=== PATIENT | male | born 1930 | race Hispanic/Latino ===

== ENCOUNTER 2016-12-26 18:43 | Inpatient (IN) | payer MEDICARE, BC ==
[2016-12-26 19:18] VITALS: BMI 25.0
--- NOTE | 2016-12-26 19:25 | ED PDOC ---
Arrival/HPI - General Historian: Family (Daughter) - General Chief Complaint: GI Problem Time Seen by Provider: 12/26/16 18:45 - History of Present Illness Narrative History of Present Illness (Text): 12/26/16 19:25 Patient is an 86 year old male who presents to the emergency department with hiccups and difficulty keeping food down for the past week. Daughter provides history. Daughter states that after the patient ate an Eskimo Pie today, patient agreed to come to the emergency department for further evaluation. Daughter explains that patient does not like to seek help from physicians or come to the hospital, so has not been evaluated by anyone in the past few years. She explains that 2-3 years ago, the patient may have had a "stroke" that resulted in residual speech deficits, where the patient tends to answer with "yes" or "no". She states the patient was not evaluated for this episode. Approximately one year ago, she reports the patient had another possible "stroke " that resulted in residual weakness in the right arms and both legs. Since this episode, patient had walked with a shuffle, leading with his left foot, and dragging his right foot. On 11/23/16 (approx one month ago), she reports the patient fell while in the yard and was on the ground for approximately 2 hours before EMT's arrived. She states she did not notice any evidence of trauma or injury after this fall. Daughter reports he refused to come to the ER for evaluation once EMT's arrived. Since the fall, she states he does not walk anymore and has to be lifted from a wheelchair into the bed. Five days ago, patient began to have hiccups, which he has had in the past (was evaluated in the ER as per daughter several years ago before any of the "strokes"). She states the patient usually gets this around the time of the year where he works on the compost pile in the yard. For the past week, daughter states the patient cannot keep food down, not quite vomiting, but spitting up some of the food he eats. She reports his food is limited to things like yogurt and applesauce. Today, patient had an Eskimo Pie after which he agreed to come for further evaluation after seeing the food that came up. Daughter reports she has not witnessed or heard of any episodes of the patient choking from these hiccups. She states he sometimes complains about his breathing. No urinary or bowel incontinence. 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) - Renal Hx Renal Disorder: No - Endocrine/Metabolic Hx Endocrine Disorders: No - Hematological/Oncological Hx Blood Disorders: Yes (GI BLEED) - Integumentary Hx Dermatological Disorder: No - Musculoskeletal/Rheumatological Hx Musculoskeletal Disorders: No Hx Falls: No - Gastrointestinal Hx Gastrointestinal Disorders: Yes (CONSTIPATION) - Genitourinary/Gynecological Hx Genitourinary Disorders: Yes (H/O OF HAVING A CATHETER FOR 10 YRS,URINARY RETENTION) Hx Incontinence: Yes - Psychiatric Hx Psychophysiologic Disorder: No Hx Depression: No Hx Emotional Abuse: No Hx Physical Abuse: No Hx Substance Use: No - Past Surgical History Past Surgical History: No Previous - Suicidal Assessment Feels Threatened In Home Enviroment: No Family/Social History - Physician Review Nursing Documentation Reviewed: Yes Family/Social History: No Known Family HX Smoking Status: Former Smoker Hx Alcohol Use: No Hx Substance Use: No Allergies/Home Meds Allergies/Adverse Reactions: Allergies No Known Allergies Allergy (Verified 11/01/13 08:07) Review of Systems - Review of Systems Systems not reviewed;Unavailable: Other (patient hard of hearing) Constitutional: Fatigue. absent: Fevers Eyes: absent: Vision Changes, Eye Pain ENT: Hearing Changes Respiratory: SOB, Cough, Sputum Cardiovascular: absent: Chest Pain, Palpitations Gastrointestinal: Appetite Changes, Food Intolerance, Other (dysphagia, hiccups) . absent: Abdominal Pain, Stool Changes, Nausea Genitourinary Male: Other (family reports "he urinates and moves his bowels without problems" but chronic issues noted as diaper is present) Musculoskeletal: absent: Back Pain Neurological: Focal Weakness, Gait Changes. absent: Headache, Speech Changes Hemo/Lymphatic: absent: Easy Bleeding Physical Exam Vital Signs Reviewed: Yes Temperature: Afebrile Pulse: Tachycardic Appearance: Positive for: Ill-Appearing Mental Status: Positive for: other (alert, follows commands, interacts appropriately) - Physical Exam Narrative Physical Exam (Text): Head: Atraumatic. Normocephalic. Eyes: PERRL. EOMI. Conjunctivae are not pale. ENT: Mucous membranes are moist and intact. Oropharynx is clear and symmetric. Neck: Supple. Full ROM. No tracheal deviation. Cardiovascular: Tachycardic, systoic murmur. Distal pulses equal and palpable. Pulmonary/Chest: No evidence of respiratory distress. Mild rhonchi at the bases. No accessory muscle usage. No stridor. No retractions. Abdominal: Distended. Firm to palpation. Lower abdominal distension and firmness. Inguinal hernias, not incarcerated. Normoactive bowel sounds. Rectal: no gross bleeding or melena Genitourinary: patient wearing diaper, no foul odor, no penile drainage, paraphimosis noted, no tenderness Back: No CVA tenderness. No deformity. No midline erythema or edema. Extremities: Bilateral edema, mild, nontender calves. No cyanosis. No clubbing. Able to range at hip, knee and ankle with no discomfort. Able to range at shoulder, elbow and wrist. Skin: Skin is pale but warm, no deep ulcerations or petechiae. Neurological: Hard of hearing, but follows commands interacts appropriately. He is able to move both of his lower extremities on his own, bend at the knees and wiggle his toes, unable to lift legs off the bed on his own. He is able to move both upper extremities, ? weakness in right when compared to left. Reflexes diminished. Psychiatric: He follows commands appropriately. Daughter states baseline mental status and reports that he is acting his baseline and appropriately. 12/26/16 22:41 (Alexsandra Oliva) Vital Signs Temp Pulse Resp BP Pulse Ox 12/26/16 22:22 106 H 20 130/50 L 95 12/26/16 21:05 98.2 F 111 H 20 144/86 94 L Medical Decision Making - EKG Interpretation Interpreted by ED Physician: Yes Type: 12 lead EKG Comparison: No previous EKG avail. ED Course and Treatment: 12/27/16 14:29 CT results placed into PA review folder; Preliminary interpretation of this examination was reported by [facility] at 8:22 p.m. on 12/26/2016. There is discordance of this report with the preliminary interpretation. Soft tissue density in the gastric cardia was not described in the in the preliminary report of this examination. Further evaluation with endoscopy is advised to exclude gastric neoplasm. results discussed with dr. danielson; she is aware fo gastric cardia density; pt will have endoscopy (Martha Ng) Patient presents with his daughter, who is also his power of commercial real estate attorney. Patient has not seen a physician for "years", daughter states that he does not like to come to hospitals or see physicians. The patient has had multiple symptoms throughout the past several years reported by himself and daughter, including the belief that "he thinks he has had strokes a few times" several years ago when he developed extremity weakness and did not seek evaluation, and also several months ago had episodes of speaking difficulty. She reports a fall while "working the garden" 1-2 months ago where there was NO reported trauma or injury but "since then he hasn't been walking on his own we use a wheelchair". Daughter states that he urinates on his own and without difficulty, stating that he communicates when he needs to go to the bathroom and "we wheel him to the bathroom". The patient DENIES ABDOMINAL OR BACK PAIN. He has had cough and hiccups, although hiccups have improved now in ED. There is productive cough, associated with history of dysphagia, suspect possible aspiration pneumonia. He is not in respiratory distress in ED. CXR suggestive of infiltrate, cannot exclude underlying infectious or malignant process. Cultures drawn and iv antibiotics given. The patient has not been walking for several months. At this time he has no reported back injury, or midline back tenderness. He is not incontinent. He has sensation in the saddle regions of his legs. Cannot exclude a prior CVA by his history, although no ACUTE weakness described and initial CT head unremarkable for acute process. Due to exam revealing abdominal distension, ct abdomen ordered. Limitations of this study reviewed with patient and family, although multiple abnormalities noted and reviewed with patient and family. He continues to deny abdominal pain or urinary difficulty, although concern for malignancy and bladder/prostate/kidney disease reviewed with patient. He does not wish for catheter as he denies discomfort or any difficulty urinating. This history and CT abdomen were reviewed with Dr. Babcock, urology, consult requested by admitting PMD Dr. Danielson. I have stressed to patient and family need for admission to further evaluate multiple medical issues including renal failure, elevated cr, dysphagia, abnormal ct abdomen findings. CT chest pending, endorsed to admitted team for admission, at this time NO chest pain or respiratory distress. Treatment plan reviewed with patient with daughter, HERNESTO, present, and they are agreeable to admission for further evaluation. Will consult GI, neurology. I am highly suspicious of malignancy, as well as GI pathology and upper gi disorder. Currently he is handling his secretions with no stridor or hypoxia or wheezing. Patient currently with NO PMD, patient admitted to on-call physician Dr. Danielson. EXAM: CT Head Without Intravenous Contrast IMPRESSION: No acute findings. Non-acute findings as above. Dictated and Authenticated by: Fredrick Han MD 12/26/2016 8:09 PM Eastern Time ([place] & [place]) EXAM: CT Abdomen and Pelvis Without Intravenous Contrast IMPRESSION: Bilateral hydronephrosis, severe on the right with a markedly distended urinary bladder compatible with bladder outlet obstruction. Perinephric stranding probably relates to the hydronephrosis although possibility of superimposed pyelonephritis and/or urinary tract infection is raised. Masslike density postero-inferiorly within urinary bladder which is in direct contiguity with the prostate gland. This could represent the prostate gland or prostate tumor protruding into the urinary bladder and/or bladder carcinoma which is not excluded. Enlarged prostate gland. Bilateral fat containing inguinal hernias. Fluid mixed with feces in sigmoid colon. Possibility of gastroenteritis is raised. Patchy/hazy right middle lobe density suspected to represent pneumonia with bilateral lower lobe atelectasis. Small fluid density focus containing gas adjacent to or involving the pancreatic head. Differential considerations include an enlarged segment of the pancreatic ductal system, and large distal common bile duct, or duodenal diverticulum. Vague increased density posteriorly in gallbladder could relate to bile content, sludge or less likely gallstones. 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 Dictated and Authenticated by: Fredrick Han MD 12/26/2016 8:22 PM Eastern Time ([place] & [place]) 12/26/16 22:58 (Alexsandra Oliva) - Lab Interpretations Microbiology Results: Microbiology Results 12/26/16 20:38 Blood Blood Culture - Preliminary NO GROWTH AFTER 48 HOURS 12/26/16 20:00 Blood Blood Culture - Preliminary NO GROWTH AFTER 48 HOURS Lab Results: 12/26/16 18:55 12/26/16 18:55 Lab Results 12/26/16 20:38: pO2 57 H, VBG pH 7.36, VBG pCO2 49.0, VBG HCO3 27.7, VBG Total CO2 29.2 H, VBG O2 Sat (Calc) 91.3 H, VBG Base Excess 1.5, VBG Potassium 4.0, Glucose 121 H, Lactate 2.0, FiO2 21.0, Sodium 143.0, Chloride 109.0 H, Venous Blood Potassium 4.0 12/26/16 18:55: Sodium 143, Potassium 3.9, Chloride 101, Carbon Dioxide 28, Anion Gap 18, BUN 42 H, Creatinine 2.3 H, Est GFR ( Amer) 33, Est GFR ( Non-Af Amer) 27, Random Glucose 141 H, Calcium 9.0, Magnesium 2.3 H, Total Bilirubin 0.8, AST 39, ALT 49, Alkaline Phosphatase 101, Lactate Dehydrogenase 625, Total Creatine Kinase 27 L, Troponin I 0.03 D, NT-Pro-B Natriuret Pep 907 H, Total Protein 7.4, Albumin 3.6, Globulin 3.8, Albumin/Globulin Ratio 0.9 L, Amylase 115, Lipase 256 12/26/16 18:55: PT 12.0 H, INR 1.11 H, APTT 32.4 H 12/26/16 18:55: WBC 12.7 H, RBC 4.11, Hgb 12.8 L, Hct 39.2 L, MCV 95.4, MCH 31.1 , MCHC 32.7, RDW 13.5, Plt Count 406, MPV 9.5, Gran % 83.6 H, Lymph % (Auto) 7.2 L, Curry % (Auto) 8.7 H, Eos % (Auto) 0.3 L, Baso % (Auto) 0.2, Gran # 10.61 H, Lymph # 0.9 L, Curry # 1.1 H, Eos # 0.0, Baso # 0.03 - RAD Interpretation Radiology Orders: 12/26/16 19:27 ABD & PELVIS W/O PO OR IV CONT [CT] Stat HEAD W/O CONTRAST [CT] Stat 12/26/16 19:28 CHEST ONE VIEW [RAD] Stat 12/26/16 20:26 CHEST W/O CONTRAST [CT] Stat - EKG Interpretation EKG Interpretation (Text): 12/26/16 22:40 EKG at 22:27 sinus tachycardia rate of 108, no acute st elevations, no prior for comparison (Alexsandra Oliva) - Medication Orders Current Medication Orders: Albuterol/Ipratropium (Duoneb 3 Mg/0.5 Mg (3 Ml) Ud) 3 ml IH Q2H PRN PRN Reason: Shortness of Breath Albuterol/Ipratropium (Duoneb 3 Mg/0.5 Mg (3 Ml) Ud) 3 ml IH [id number] [facility] Last Admin: 12/29/16 07:32 Dose: 3 ml Collagenase (Santyl) 0 gm TOP DAILY [facility] Last Admin: 12/28/16 14:00 Dose: 1 applic Doxycycline Hyclate (Doryx) 100 mg PO Q12 [facility] PRN Reason: Protocol Ceftriaxone Sodium (Rocephin 1 Gram Ivpb) 100 mls @ 100 mls/hr IVPB DAILY [facility] ARMANDO PRN Reason: Protocol Last Admin: 12/28/16 10:12 Dose: 100 mls/hr Dextrose/Sodium Chloride (Dextrose 5%/0.45% Ns 1000 Ml) 1,000 mls @ 60 mls/hr IV .[id number] [facility] Last Admin: 12/29/16 05:30 Dose: 60 mls/hr Lorazepam (Ativan) 0.5 mg IVP Q6H PRN; Protocol PRN Reason: Anxiety Last Admin: 12/29/16 05:28 Dose: 0.5 mg Metoprolol Tartrate (Lopressor) 25 mg PO BID [facility] Last Admin: 12/28/16 18:16 Dose: 25 mg Pantoprazole Sodium (Protonix Inj) 40 mg IVP DAILY [facility] Last Admin: 12/28/16 10:12 Dose: 40 mg Tamsulosin HCl (Flomax) 0.4 mg PO DAILY [facility] Last Admin: 12/28/16 12:47 Dose: 0.4 mg Discontinued Medications Albuterol/Ipratropium (Duoneb 3 Mg/0.5 Mg (3 Ml) Ud) 3 ml IH STAT STA Stop: 12/26/16 20:54 Last Admin: 12/26/16 21:35 Dose: 3 ml Chlorpromazine (Thorazine) 25 mg PO QID [facility] Last Admin: 12/27/16 12:45 Dose: Collagenase (Santyl) 1 gm TOP DAILY [facility] Last Admin: 12/27/16 16:12 Dose: 1 applic Sodium Chloride (Sodium Chloride 0.9%) 1,000 mls @ 100 mls/hr IV .Q10H [facility]AND[facility] Last Admin: 12/26/16 20:21 Dose: 100 mls/hr Ceftriaxone Sodium (Rocephin 1 Gram Ivpb) 100 mls @ 200 mls/hr IVPB STAT STA PRN Reason: Protocol Stop: 12/26/16 21:25 Last Admin: 12/26/16 21:35 Dose: 200 mls/hr Metronidazole (Flagyl) 100 mls @ 100 mls/hr IVPB STAT STA PRN Reason: Protocol Stop: 12/26/16 21:55 Last Admin: 12/26/16 22:37 Dose: 100 mls/hr Metronidazole (Flagyl) 50 mls @ 100 mls/hr IVPB Q8 JOSE ARMANDO PRN Reason: Protocol Stop: 01/01/17 06:01 Last Admin: 12/28/16 15:21 Dose: 100 mls/hr Comments: Pantoprazole Sodium (Protonix Inj) 40 mg IVP ONCE STA Stop: 12/26/16 19:41 Last Admin: 12/26/16 20:21 Dose: 40 mg Pregabalin (Lyrica) 50 mg PO BID [facility] ARMANDO Last Admin: 12/28/16 23:37 Dose: Not Given Non-Admin Reason: Patient Refused - Scribe Statement The provider has reviewed the documentation as recorded by the Scribe - Scribe Statement Brian Cerda Provider Scribe Attestation: All medical record entries made by the Scribe were at my direction and personally dictated by me. I have reviewed the chart and agree that the record accurately reflects my personal performance of the history, physical exam, medical decision making, and the department course for this patient. I have also personally directed, reviewed, and agree with the discharge instructions and disposition. (Alexsandra Oliva) Disposition/Present on Arrival - Present on Arrival Any Indicators Present on Arrival: No History of DVT/PE: No History of Uncontrolled Diabetes: No Urinary Catheter: No History of Decub. Ulcer: No History Surgical Site Infection Following: None - Disposition Have Diagnosis and Disposition been Completed?: Yes Disposition Time: 20:40 Patient Plan: Admission, Telemetry - Disposition Diagnosis: Dysphagia, Aspiration pneumonia, Tachycardia, Abdominal distension, Leg weakness, Prostate disorder, Hydronephrosis, Renal failure, Leukocytosis, Intractable hiccups, Cough, Abnormal abdominal CT scan, Weakness, Gait disturbance Disposition: HOSPITALIZED Patient Problems: Current Active Problems Problem Status Onset Abdominal distension Acute Abnormal abdominal CT scan Acute Aspiration pneumonia Acute Cough Acute Dysphagia Acute Gait disturbance Acute Hydronephrosis Acute Intractable hiccups Acute Leg weakness Acute Leukocytosis Acute Prostate disorder Acute Renal failure Acute Tachycardia Acute Weakness Acute Condition: SERIOUS
[2016-12-26] MEDS ORDERED: Sodium Chloride 0.9% 1,000 ML IV SCH (19:30)
[2016-12-26 20:00] LABS: ADD MANUAL DIFF? NO
[2016-12-26 20:07] LABS: BASO # 0.03 K/mm3 (0.0-2.0); BASO % 0.2 % (0.0-3.0); EOS % 0.3 % (1.5-5.0); GRAN # 10.61 (1.4-6.5); GRAN % 83.6 % (50.0-68.0); HEMATOCRIT 39.2 % (42.0-52.0); LYMPH # 0.9 (1.2-3.4); LYMPH % 7.2 % (22.0-35.0); MEAN CELL VOLUME 95.4 fL (80.0-105.0); MEAN CORPUSCULAR HEMOGLOBIN 31.1 pg (25.0-35.0); MEAN CORPUSCULAR HGB CONC 32.7 g/dl (31.0-37.0); MEAN PLATELET VOLUME 9.5 fl (7.0-11.0); MONO # 1.1 (0.1-0.6); MONO % 8.7 % (1.0-6.0); PLATELET COUNT 406 10^3/uL (120.0-450.0); RED CELL DISTRIBUTION WIDTH 13.5 % (11.5-14.5); WHITE BLOOD COUNT 12.7 10^3/ul (4.5-11.0)
[2016-12-26 20:17] LABS: INR 1.11 (0.93-1.08); PARTIAL THROMBOPLASTIN TIME 32.4 Seconds (23.7-30.8)
[2016-12-26 20:18] LABS: ALB/GLOB RATIO 0.9 (1.1-1.8); BILIRUBIN,TOTAL 0.8 mg/dL (0.2-1.3); MAGNESIUM 2.3 mg/dL (1.7-2.2); POTASSIUM 3.9 mmol/L (3.6-5.0); TOTAL PROTEIN 7.4 g/dL (5.8-8.3)
[2016-12-26 20:30] LABS: TROPONIN I 0.03 ng/mL
[2016-12-26 20:51] LABS: VENOUS BLOOD GAS BASE EXCESS 1.5 mmol/L (0.0-2.0); VENOUS BLOOD PH 7.36 (7.32-7.43)
[2016-12-26] MEDS ORDERED: Albuterol-Ipratrop 3 mg / 0.5 (3 ml) UD IH STA (20:53)
[2016-12-26] MEDS ORDERED: cefTRIAXone 1 gm 100 ML IVPB STA (20:56)
[2016-12-26] MEDS ORDERED: metroNIDAZOLE IV 500 mg/100 ml 100 ML IVPB STA (20:56)
[2016-12-26] MEDS ORDERED: Albuterol-Ipratrop 3 mg / 0.5 (3 ml) UD IH PRN ×2 (21:54→22:13)
[2016-12-26] MEDS: Dextrose 5%/0.45% NS 1,000 ML IV SCH (22:33)
--- NOTE | 2016-12-26 22:52 | HP ---
HISTORY OF PRESENT ILLNESS: The patient is an 86-year-old brought in by daughter. According to joão vázquez, he does not like to go to doctors. Occasionally, he is being followed by a nurse practitioner. Has not been feeling well for the last couple of days, unable to eat or drink, has been vomiting an d having difficulty swallowing. According to daughter, he had a stroke in the past, but he never raul ght any attention. Has been increasingly weak and recently has been wheelchair bound. Also has been having scanty cough. Because of his repeated vomiting and having difficulty swallowing, family brou ght him to Emergency Room for further evaluation. Denies any recent fever or chills. Does complain of abdominal pain here and there. PAST MEDICAL HISTORY: Significant for: 1. Hypertension. 2. History of UTI in the past. 3. Hyperlipidemia. 4. History of UTI. 5. History of CVA in the past also. 6. Hearing impairment. 7. Previous admission in 2013 for his persistent hiccups. SOCIAL HISTORY: Denies smoking or drinking. Used to be smoker in the remote past. OCCUPATIONAL HISTORY: He is retired, elderly male. ALLERGIES: He is not allergic to any medication. MEDICATIONS AT HOME: ____ does not take any medication. REVIEW OF SYSTEMS: Significant for generalized weakness, difficulty swallowing and having nausea. PHYSICAL EXAMINATION: GENERAL: He is awake and alert, able to answer simple questions. VITAL SIGNS: He is afebrile, pulse 111, respirations 20, blood pressure 144/86. LUNGS: Bilateral fair airflow, no rhonchi or crackle. HEART: S1, S2 audible. ABDOMEN: Slightly distended, but no rebound or guarding. NEUROLOGIC: He is awake and alert and generally weak. LABORATORY EXAMINATION: WBC is 12.7, hemoglobin 12.8, hematocrit 39.2, platelet 406. PT 12.0, INR 1 .11, PTT 32.4. Chemistry: Sodium 143, potassium 3.9, chloride 101, CO2 of 28, BUN 42, creatinine 2. 3, blood sugar of 141, magnesium 2.3. LFTs are within normal limits. CPK 27. Troponin 0.03. BNP 9 07. Lipase 256. X-ray chest is unremarkable. ASSESSMENT: 1. Dysphagia and repeated vomiting, rule out foreign body versus esophagitis versus gastritis. 2. Chronic renal insufficiency. 3. History of cerebrovascular accident in the past. 4. Hypertension. 5. Hyperlipidemia. 6. Deconditioning and difficulty walking. PLAN: We will keep patient n.p.o. for now, give him PPI. Empirically start him on antibiotic. Bloo d culture, urine cultures are sent. We will follow up official report of CT of the abdomen and pelvi s. Request for Dr. Matos and Dr. Maldonado to evaluate patient since he has questionable prostatic mas s. Follow up his electrolytes in a.m. and I will reevaluate patient in a.m. Mike Danielson MD cc: [phone] TT: 12/26/2016 22:51:43 sn
[2016-12-27 00:36] LABS: PH,URINE 6.5 (4.7-8.0); URINE BILIRUBIN NEGATIVE (NEGATIVE); URINE BLOOD MODERATE (NEGATIVE); URINE GLUCOSE (UA) NEGATIVE (NEGATIVE); URINE KETONE NEGATIVE (NEGATIVE); URINE LEUKOCYTE ESTERASE TRACE Leu/uL (NEGATIVE); URINE PROTEIN 30 mg/dL (<30 mg/dL)
[2016-12-27 00:36] LABS: VENOUS BLOOD GAS BASE EXCESS 3.1 mmol/L (0.0-2.0); VENOUS BLOOD PH 7.46 (7.32-7.43)
[2016-12-27 00:41] LABS: URINE APPEARANCE SL CLOUDY (CLEAR); URINE COLOR YELLOW (YELLOW)
[2016-12-27 01:03] LABS: URINE EPITHELIAL CELLS 0 - 2 /hpf (0-5)
[2016-12-27 01:04] LABS: URINE BACTERIA RARE (NEG)
[2016-12-27] MEDS: Albuterol-Ipratrop 3 mg / 0.5 (3 ml) UD IH SCH ×4 (01:38→20:03)
--- NOTE | 2016-12-27 01:52 | CP.PCM.PN ---
Subjective - Date & Time of Evaluation Date of Evaluation: 12/27/16 Time of Evaluation: 01:51 - Subjective Subjective: Patient was seen at bedside because he had been pulling Flores catheter.Nurse had requested to order wrist restraints. Has no acute symptoms now. This 86 years old male was admitted for hiccugh and difficulty in keeping food down,dysphagia, tachycardia, aspiration PNA. Has PMH of HTN,right, ear deafness, gi bleeding, constipation ,urinary incontinence, urinary retention, indwelling catheter for 10 years, Objective - Vital Signs/Intake and Output Vital Signs (last 24 hours): Temp Pulse Resp BP Pulse Ox 99.6 F 94 H 20 123/64 95 12/27/16 01:08 12/27/16 01:39 12/26/16 23:55 12/27/16 01:08 12/26/16 22:22 - Medications Medications: Current Medications Albuterol/Ipratropium (Duoneb 3 Mg/0.5 Mg (3 Ml) Ud) 3 ml IH Q2H PRN PRN Reason: Shortness of Breath Albuterol/Ipratropium (Duoneb 3 Mg/0.5 Mg (3 Ml) Ud) 3 ml IH [id number] [facility] Last Admin: 12/27/16 01:38 Dose: 3 ml Chlorpromazine (Thorazine) 25 mg PO QID [facility] Last Admin: 12/26/16 23:27 Dose: Not Given Ceftriaxone Sodium (Rocephin 1 Gram Ivpb) 100 mls @ 100 mls/hr IVPB DAILY [facility] PRN Reason: Protocol Dextrose/Sodium Chloride (Dextrose 5%/0.45% Ns 1000 Ml) 1,000 mls @ 60 mls/hr IV .[id number] [facility] Last Admin: 12/26/16 22:33 Dose: 60 mls/hr Metronidazole (Flagyl) 50 mls @ 100 mls/hr IVPB Q8 [facility] ARMANDO PRN Reason: Protocol Stop: 01/01/17 06:01 Pantoprazole Sodium (Protonix Inj) 40 mg IVP DAILY [facility] - Labs Labs: PT 12.0 Seconds (9.9-11.8) H 12/26/16 18:55 INR 1.11 (0.93-1.08) H 12/26/16 18:55 APTT 32.4 Seconds (23.7-30.8) H 12/26/16 18:55 - Constitutional Appears: Well, No Acute Distress - Head Exam Head Exam: ATRAUMATIC, NORMAL INSPECTION, NORMOCEPHALIC - Eye Exam Eye Exam: Normal appearance - ENT Exam ENT Exam: Normal External Ear Exam - Neck Exam Neck Exam: Normal Inspection - Respiratory Exam Respiratory Exam: NORMAL BREATHING PATTERN - Cardiovascular Exam Cardiovascular Exam: absent: JVD - GI/Abdominal Exam GI & Abdominal Exam: absent: Distended - Rectal Exam Rectal Exam: Deferred - Extremities Exam Extremities Exam: Normal Inspection - Back Exam Back Exam: NORMAL INSPECTION - Neurological Exam Neurological Exam: Altered - Psychiatric Exam Psychiatric exam: Agitated - Skin Skin Exam: Normal Color Assessment and Plan - Assessment and Plan (Free Text) Assessment: A/P:Agitation. HTN. Urinary retention. Continue present management. Restraint order entered.
[2016-12-27] MEDS ORDERED: Albuterol-Ipratrop 3 mg / 0.5 (3 ml) UD IH SCH (02:00)
[2016-12-27] MEDS: metroNIDAZOLE IV 250mg/50 ml 50 ML IVPB SCH ×3 (05:11→22:10)
--- NOTE | 2016-12-27 07:51 | CT ---
PROCEDURE: CT HEAD WITHOUT CONTRAST. HISTORY: bilateral leg weakness, right greater than left COMPARISON: None available. TECHNIQUE: Axial computed tomography images were obtained through the head/brain without intravenous contrast. Radiation dose: Total exam DLP = 725.84 mGy-cm. This CT exam was performed using one or more of the following dose reduction techniques: Automated exposure control, adjustment of the mA and/or kV according to patient size, and/or use of iterative reconstruction technique. FINDINGS: HEMORRHAGE: No intracranial hemorrhage. BRAIN: No mass effect or edema. Moderate diffuse age-appropriate atrophy. Chronic periventricular and deep white matter microvascular ischemic change. Old left frontal and left high parietal encephalomalacia, possibly old infarcts. No evidence of acute infarct. VENTRICLES: Unremarkable. No hydrocephalus. CALVARIUM: Unremarkable. PARANASAL SINUSES: Unremarkable as visualized. No significant inflammatory changes. MASTOID AIR CELLS: Minimal left mastoid effusion, nonspecific. OTHER FINDINGS: None. IMPRESSION: No intracranial mass, hemorrhage or evidence of acute infarct. Age related atrophy and chronic microvascular ischemic change. Old left frontal and high parietal encephalomalacia, possibly old infarct. Minimal left mastoid effusion. Preliminary interpretation of this examination was reported by [facility] at 8:09 p.m. on 12/26/2016. There is concurrence of this report with the preliminary interpretation.
--- NOTE | 2016-12-27 08:16 | CT ---
PROCEDURE: CT Abdomen and Pelvis without intravenous contrast HISTORY: history of intractable hiccups, distension COMPARISON: None. TECHNIQUE: Without contrast.. Contrast Dose: 0 Radiation dose: Total exam DLP = 708.69 mGy-cm. This CT exam was performed using one or more of the following dose reduction techniques: Automated exposure control, adjustment of the mA and/or kV according to patient size, and/or use of iterative reconstruction technique. FINDINGS: LOWER THORAX: There are patchy opacities in the right middle lobe, possibly infectious or inflammatory in origin. Minimal right lower lobe dependent subsegmental atelectasis. LIVER: Normal size and contour. Nonspecific 1.9 cm rounded low-attenuation mass in the posterior right hepatic lobe. Punctate calcification noted in the left hepatic lobe, likely granulomatous. No biliary ductal dilatation. GALLBLADDER AND BILE DUCTS: Possible noncalcified gallstones. See image 61, series 2. Recommend correlation with ultrasound examination. PANCREAS: Probable duodenal diverticulum in the pancreatic head. No pancreatic mass. No pancreatic ductal dilatation. Few punctate calcifications in the pancreatic head may reflect chronic pancreatitis. SPLEEN: Unremarkable. ADRENALS: Unremarkable. No mass. KIDNEYS AND URETERS: Right upper pole renal cortical cyst, 8.4 cm. Bilateral hydroureteronephrosis, right greater than left. No obstructing calculus. VASCULATURE: There is displacement of calcified intima in the infrarenal abdominal aorta consistent with aortic dissection indeterminate chronicity. No prior examination is available for comparison. No aneurysmal dilatation noted. BOWEL: No bowel obstruction. Soft tissue density in the gastric cardia, lobulated the common extending to gastroesophageal junction. Small hiatal hernia noted. This is concerning for gastric neoplasm and evaluation with upper endoscopy is advised. This soft tissue density measures at least 4.4 cm in diameter. APPENDIX: Unremarkable. Normal appendix. PERITONEUM: No ascites. Bilateral inguinal hernias containing only mesenteric fat. LYMPH NODES: Unremarkable. No enlarged lymph nodes. BLADDER: Bladder is grossly distended. There is a lobular contour of the bladder. There is no discrete mass. There is abnormal soft tissue density contiguous with the median lobe of the prostate which may represent an enlarged median lobe. However, further evaluation is suggested to exclude bladder neoplasm. REPRODUCTIVE: Mild prostate enlargement. Enlarged median lobe of the prostate. BONES: No acute fracture. OTHER FINDINGS: None. IMPRESSION: Patchy opacity in right middle lobe possibly reflecting a pneumonia. Followup is advised. Lobulated soft tissue density in gastric cardia extending into a small hiatal hernia to the level of the gastroesophageal junction. Suspicious for neoplasm. Recommend upper endoscopy for further evaluation. Nonspecific 1.9 cm low attenuation rounded hepatic mass right hepatic lobe. Probable old calcified hepatic granuloma. Evidence of abdominal aortic dissection, indeterminate age. No prior examination available for comparison. No aneurysmal dilatation. Bilateral hydroureteronephrosis, right greater than left. Markedly distended urinary bladder with lobulated contour. This may reflect bladder diverticula E. enlarged prostate. Abnormal soft tissue density arising from median lobe of prostate. Further evaluation is advised to exclude bladder neoplasm. Enlarged prostate. 8.4 cm right upper pole renal cortical cyst. Possible cholelithiasis. Please correlate with ultrasound examination. Preliminary interpretation of this examination was reported by [facility] at 8:22 p.m. on 12/26/2016. There is discordance of this report with the preliminary interpretation. Soft tissue density in the gastric cardia was not described in the in the preliminary report of this examination. Further evaluation with endoscopy is advised to exclude gastric neoplasm.
--- NOTE | 2016-12-27 08:32 | RAD ---
PROCEDURE: CHEST RADIOGRAPH, 1 VIEW HISTORY: hx of cough, ? aspiration, vomiting, hiccups COMPARISON: 11/01/2013 FINDINGS: LUNGS: Clear. PLEURA: No pneumothorax or pleural fluid seen. CARDIOVASCULAR: Normal. OSSEOUS STRUCTURES: No significant abnormalities. VISUALIZED UPPER ABDOMEN: Normal. OTHER FINDINGS: None. IMPRESSION: No active disease.
[2016-12-27 08:46] LABS: ADD MANUAL DIFF? NO
[2016-12-27 08:51] LABS: BASO # 0.02 K/mm3 (0.0-2.0); BASO % 0.1 % (0.0-3.0); EOS % 0.1 % (1.5-5.0); GRAN # 12.19 (1.4-6.5); GRAN % 83.1 % (50.0-68.0); HEMATOCRIT 34.5 % (42.0-52.0); LYMPH # 1.3 (1.2-3.4); LYMPH % 8.9 % (22.0-35.0); MEAN CORPUSCULAR HEMOGLOBIN 30.8 pg (25.0-35.0); MEAN CORPUSCULAR HGB CONC 32.8 g/dl (31.0-37.0); MEAN PLATELET VOLUME 9.3 fl (7.0-11.0); MONO # 1.1 (0.1-0.6); MONO % 7.8 % (1.0-6.0); PLATELET COUNT 299 10^3/uL (120.0-450.0); RED CELL DISTRIBUTION WIDTH 13.4 % (11.5-14.5); WHITE BLOOD COUNT 14.7 10^3/ul (4.5-11.0)
--- NOTE | 2016-12-27 08:55 | CT ---
PROCEDURE: CT Chest without contrast HISTORY: dysphagia, ? lung mass COMPARISON: None. TECHNIQUE: Contiguous axial images were obtained through the chest without intravenous contrast enhancement. Sagittal and coronal reconstructions were performed. Radiation dose (DLP): 540.08 mGy-cm. This CT exam was performed using one or more of the following dose reduction techniques: Automated exposure control, adjustment of the mA and/or kV according to patient size, and/or use of iterative reconstruction technique. FINDINGS: LUNGS: Patchy opacities in right middle lobe and posterior segment right upper lobe. Possible pneumonia. Subsegmental atelectasis right lower lobe and minimal atelectasis left lower lobe. 1.8 cm mass in superior segment right lower lobe, abutting right mediastinal pleura posterior to right hilum. Irregular margins. Suspicious for pulmonary neoplasm. This is likely amenable to bronchoscopic evaluation. MEDIASTINUM: Unremarkable thoracic aorta. No aneurysm. Normal size heart. Coronary arterial calcification. Main pulmonary artery unremarkable. No vascular congestion. No lymphadenopathy. Mild diffuse mural thickening of thoracic esophagus throughout its length, possible diffuse esophagitis. Small hiatal hernia. Abnormal soft tissue density seen within the hiatal hernia as well as within gastric cardia, better demonstrated on abdominal/ pelvic CT examination of the same date. Suspicious for gastric neoplasm. Evaluation with endoscopy is advised. PLEURA: No pleural fluid. No pneumothorax. BONES: No fracture. No destructive lesion. UPPER ABDOMEN: Bilateral hydroureteronephrosis. Large right upper pole renal cyst. Please see report of abdominal/pelvic CT examination. Top of markedly distended urinary bladder is also included in the lower sections of this examination. Nonspecific 1.8 cm low-density mass right hepatic lobe posterior segment. Consider correlation with ultrasound examination. OTHER FINDINGS: None. IMPRESSION: Multifocal patchy opacities, right middle and upper lobes. Possible pneumonia. 1.8 cm mass in superior segment right lower lobe, posterior to right hilum. Suspicious for pulmonary neoplasm. Further evaluation is advised. Diffuse mild thickening of thoracic esophagus, possible esophagitis. Hiatal hernia. Soft tissue density within herniated stomach as well as within the gastric cardia, better demonstrated on abdominal/pelvic CT examination of the same date. Suspicious for gastric neoplasm. Evaluation with endoscopy advised. Bilateral hydroureteronephrosis. Large right upper pole renal cyst. See report of abdominal/ pelvic CT examination. Preliminary interpretation of this examination was reported by [facility] at 11:15 p.m. on 12/26/2016. There is concurrence of this report with the preliminary interpretation.
[2016-12-27 09:11] LABS: ALB/GLOB RATIO 0.9 (1.1-1.8); BILIRUBIN,TOTAL 1.1 mg/dL (0.2-1.3); CALCIUM 8.2 mg/dL (8.4-10.5); PHOSPHOROUS 3.8 mg/dL (2.5-4.5); POTASSIUM 3.6 mmol/L (3.6-5.0); TOTAL PROTEIN 6.4 g/dL (5.8-8.3)
[2016-12-27 09:51] LABS: FREE T4 1.49 ng/dL (0.78-2.19)
--- NOTE | 2016-12-27 10:16 | CARD ---
APPROVED REPORT EKG Measurement Heart [id number] <Conclusion> Sinus tachycardia Septal infarct, age undetermined Abnormal ECG
--- NOTE | 2016-12-27 10:19 | CARD ---
APPROVED REPORT EKG Measurement Heart [id number] <Conclusion> Atrial fibrillation Abnormal ECG
[2016-12-27] MEDS: cefTRIAXone 1 gm 100 ML IVPB SCH (10:29)
--- NOTE | 2016-12-27 12:45 | PN ---
DATE: 12/27/2016 The patient is seen and examined. He looks much better than last night. His belly was distended and reportedly, as per nurse who is in charge today, that a full liter of urine was drained last night. He seems to be not in any acute distress. He is awake and alert. He is hard of hearing. PHYSICAL EXAMINATION: VITAL SIGNS: His temperature is 99.5, pulse 98, respirations 20, blood pressure 142/83. LUNGS: Bilateral fair airflow, no rhonchi or crackle. HEART: S1, S2 audible. ABDOMEN: Soft, nontender, no rebound, no guarding. NEUROLOGIC: He is awake and alert, hard of hearing, moves all extremities, has generalized weakness. LABORATORY EXAMINATION: WBCs 14.7, hemoglobin 11.3, hematocrit 34.5, platelets of 299. PT 12.0, INR 1.11. Chemistry: Sodium 144, potassium 3.6, chloride 106, CO2 27, BUN 37, creatinine 2.0, blood wallace gar of 130. LFTs are within normal limits. His blood culture and urine cultures are unremarkable. The patient had CT scan of the abdomen and pelvis done that shows patchy opacity in the right middle lobe, possibly reflecting pneumonia, and he has lobulated soft tissue density in the gastric cardia e xtending into the small hiatal hernia, hepatic granuloma, bilateral hydroureteronephrosis, right grea ter than the left and markedly distended urinary bladder that was decompressed and large prostate wit h a size of 8.4 cm, right upper pole renal cortical cyst and cholelithiasis. CT of the chest, right middle and upper lobe possible pneumonia. ASSESSMENT: 1. Status post acute urinary retention, status post decompression. 2. Bilateral upper lobe pneumonia versus malignancy. 3. Acute on chronic renal insufficiency. 4. Impaired hearing. 5. History of hypertension. PLAN: Currently, patient is n.p.o. Schedule is for upper endoscopy. He is on IV fluid. He is gett ing nebulizer treatment. He is on metronidazole and Rocephin. Will add Zithromax. Continue on Prot luana. I will try to get in touch with patient's daughter, Sultana, who will contact me today evening. Tried to get some more information from, , his , but she states she does not know much about his other ailments. I will discuss with patient's daughter about lung nodule versus pneumonia and a lso prostatic hyperplasia versus cancer of prostate. Awaiting other consultants' input. Mike Danielson MD cc: [id number] TT: 12/27/2016 12:44:28 Confirmation # [id number] Dictation # [id number] en
[2016-12-27 13:01] LABS: TROPONIN I 0.07 ng/mL
[2016-12-27 13:21] LABS: PROSTATE SPECIFIC ANTIGEN 6.8 ng/mL (0.00-2.5)
[2016-12-27] MEDS: Dextrose 5%/0.45% NS 1,000 ML IV SCH (15:08)
[2016-12-27] MEDS ORDERED: Collagenase 250 Units/gm Ointment(30 gm) TOP SCH (16:15)
--- NOTE | 2016-12-27 19:25 | CON ---
DATE: 12/27/2016 HISTORY OF PRESENT ILLNESS: This is an 86-year-old male who came to the Emergency Room with hiccup a nd difficulty in keeping food down for the past week. The patient was brought in by daughter and the patient was unable to eat or drink and was vomiting. This morning, patient is able to manage. Call ed to evaluate the patient. PAST MEDICAL HISTORY: Hypertension, UTI, hyperlipidemia and a history of stroke in the past. SOCIAL HISTORY: Does not smoke, does not drink. ALLERGIES: No known drug allergies. REVIEW OF SYSTEMS: A 10-point review of systems was negative. PHYSICAL EXAMINATION: HEENT: Normocephalic, atraumatic. NECK: Supple. NEUROLOGIC: CAT scan of the head showed old frontal and parietal infarct. Cranial nerves II through XII were tested. Pupils reactive. EOMs intact. Spontaneous movement of the extremities noted. REFLEXES: Deep tendon reflexes 1+. Both plantars are downgoing. SENSORY: Appears intact. CEREBELLAR GAIT: Deferred. IMPRESSION: The patient had an old stroke previously. CT scan showed old frontal and parietal infar ct. Hypertension, hyperlipidemia, difficulty ambulating. PLAN: Continue present management. Will follow up. Paul Thorne MD cc: [id number] TT: 12/27/2016 19:25:09 Confirmation # [id number] Dictation # [id number] kiran
--- NOTE | 2016-12-27 19:43 | CON ---
DATE: 12/27/2016 CHIEF COMPLAINT: The patient is unable to eat or drink with abdominal distention and vomiting. HISTORY OF PRESENT ILLNESS: This is an 86-year-old male who is brought to the Emergency Room by his family. According to the family, the patient has had multiple medical issues and has been refusing t o go to the doctor. He apparently had a few strokes while at home and was never evaluated for this. Occasionally he has been seen by a nurse practitioner. Last couple of days he has been unable to ea t or drink. He has been vomiting and having difficulty swallowing. He has been having increasing we akness and difficulty ambulating. He has been wheelchair bound and he has also been complaining of a cough. His condition continued to worsen and the family finally brought him to the Emergency Room. He denies any recent fever or chills, but he does complain of some abdominal discomfort. The patien antoinette is seen on the floor in his room. He is awake. He has some type of aphasia and not completely com municative, but is able to answer yes or no questions. Most of the history was obtained from the [facility] rt and discussion with the Emergency Room physician. PAST MEDICAL HISTORY: Is significant for hypertension, history of urinary infections, hyperlipidemia , multiple CVAs, hearing impairment. HOME MEDICATIONS: He does not take any medication. ALLERGIES: No known drug allergies. FAMILY HISTORY: The patient lives at home. SOCIAL HISTORY: Positive for smoking in the past. No current smoking or ETOH use. REVIEW OF SYSTEMS: Positives as per the HPI. Other systems were asked and the patient answers negat stephania for any other acute problems. PHYSICAL EXAMINATION: GENERAL: The patient is awake and alert. He is noncommunicative, but able to answer yes or no quest ions. He is in no acute distress at this time. VITAL SIGNS: He is afebrile with a temp of 97.3, pulse of 78, BP 126/61, respirations 20. NECK: Supple. There is no adenopathy. CHEST: Reveals a normal inspiratory effort. CARDIAC: Positive S1 and S2. There is no peripheral edema noted. ABDOMEN: Soft. There is no current tenderness. There is no rebound or guarding. There is no CVA t enderness. GENITOURINARY: There is a Flores catheter in place. The phallus shows a paraphimotic foreskin, which I reduced. Scrotum is normal. Testes are bilaterally descended, nontender, no masses. Epididymide s are normal. EXTREMITIES: There is no cyanosis or edema noted. LABORATORY DATA: The patient had an elevated WBC count, which was this morning at 14.7; hemoglobin o f 11.3 with a hematocrit of 34 and platelet count 299. The patient had a creatinine of 2.3, which sierra s come down to 2.0. BNP of 907 last night. PSA was ordered and came back at 6.8. Urinalysis showed 2-5 RBC, 2-5 WBC, negative for nitrates, positive for protein. The patient had a CT scan of the abd omen and pelvis done yesterday, which showed there is bilateral hydronephrosis, right greater than le ft. There were no obstructing stones. There was mild prostatic enlargement with an enlarged median lobe. The bladder was grossly distended. There was a lobular contour of the bladder. There was no discrete mass. There is a question of a bladder diverticulum. There was a soft tissue density in th e gastric cardia, which was not described in the preliminary report and endoscopy was recommended. IMPRESSION AND PLAN: This is an 86-year-old male with multiple medical issues who has not been recei vin medical care for a while at home. Urologically the patient appears to have bilateral hydronephr osis with obstructive uropathy. A Flores catheter was placed and 4 liters of urine were drained slowl y over time. He did have a paraphimosis, which I reduced and should be okay. The plan for now would be to maintain the Flores catheter while the patient receives treatment for his other medical issues. Given the large volume of urine, which was drained, it is unlikely that the patient will void adequ ately at this time. Most likely the urologic plan would be to discharge the patient home with an ind welling Flores catheter, which should be changed monthly. We can consider a voiding trial if the jany ent's medical condition improves and after further workup of the questionable stomach mass and conges tive heart failure, we could consider starting him on tamsulosin and removing the Flores catheter for a voiding trial; however, given his lack of consistent medical care, it is likely that if the patient is not emptying well, this would not go noticed and he would likely wind up having progressive renal failure from outlet obstruction. I will discuss his further care with his medical attending and irvin long further recommendations. For now, we will continue him with the indwelling Flores catheter. We ronald l need to discuss his care with his family and I will continue to follow him with Dr. Danielson. Wong Babcock MD cc: [id number] TT: 12/27/2016 19:43:02 Confirmation # [id number] Dictation # [id number] dn
--- NOTE | 2016-12-27 20:17 | CON ---
DATE: 12/27/2016 The patient was seen and examined at the bedside earlier today. REQUEST FOR CONSULT: Dysphagia. HISTORY OF PRESENT ILLNESS: This is an 86-year-old male with a past medical history of hypertension, hyperlipidemia, history of cerebrovascular accident and hard of hearing, who comes to the Emergency Room with complaints of inability to eat or drink. He has been vomiting and having difficulty swallo wing. According to the daughter, who brought him in, he does not like to go to the doctors. He did have a history of a stroke in the past, but never got medical evaluation. Currently, the patient has been wheelchair bound. Complaining of a cough. The patient has been complaining of difficulty swal lowing. No reports of any hemetemesis or any bleeding per rectum. No fever or chills, shortness of breath or chest pain, though the patient does complain of occasional abdominal discomfort. He did sierra ve a CT scan of abdomen and pelvis on admission without any contrast, which showed right middle lobe opacity, possibly reflecting pneumonia as well as a small hiatal hernia and a soft tissue density in the gastric cardia suspicious for neoplasm. Also, noted to have old calcified hepatic granuloma. Th e patient was also found to have abdominal distention and Flores catheter was inserted and initially 2 000 mL was retained and after clamping, the patient had another 2 liter output. No reports of any bl eeding. The patient is not complaining of any abdominal pain now. PAST MEDICAL HISTORY: Is as stated above, hypertension, CVA for which the patient did not seek medic al evaluation, history of UTI, hyperlipidemia, hearing impairment, constipation, history of urinary r etention in the past. PAST SURGICAL HISTORY: None noted. FAMILY HISTORY: Noncontributory at this time. SOCIAL HISTORY: Former smoker. Denies ETOH or substance abuse. ALLERGIES: No known drug allergies. MEDICATIONS: Reviewed as per MAR. REVIEW OF SYSTEMS: Systems were reviewed with positive findings, see HPI. LABORATORY DATA: WBC 14.7, H and H is 11.3 and 34.5, platelets of 299. PT 12.0, INR is 1.11, PTT 32 .4. Sodium 144, K is 3.6, BUN 37, creatinine is 15. LFTs are within normal limits. Magnesium is 2. 0. The patient had a CT scan of the chest that showed right middle and upper lobe multifocal patchy opacities, possible pneumonia. There is a mass in the superior segment of the right lower lobe posterior to the right hilum, suspicious for pulmonary neoplasm. There is diffuse thickening in the thoracic esophagus, possible esophagitis, hiatal hernia, soft tissue density within herniated stomac h as well as within the gastric cardia suspicious for gastric neoplasm. Also is noted to have a larg e right upper pole renal cyst, bilateral hydroureteronephrosis. He also had a chest x-ray, which did not show any active disease. The head CT was also done for complaint of weakness and was negative f or intracranial mass, hemorrhage or an acute infarct. It shows an old left frontal and high parietal encephalomalacia, possibly old infarct. CT scan of abdomen and pelvis report was also reviewed, whi ch again showed the patchy opacity in the right middle lobe, possibly reflecting pneumonia. There is also a lobulated soft tissue density in the gastric cardia extending into a small hiatal hernia at t he level of the GE junction, suspicious for neoplasm and a nonspecific 1.9 cm low attenuation rounded hepatic mass in the right hepatic lobe, probable old calcified hepatic granuloma. There is evidence of abdominal aortic dissection of indeterminate age. No prior exam available for comparison. There is no aneurysmal dilatation. He also has bilateral hydroureteronephrosis, right greater than left, and a markedly distended urinary bladder with lobulated contour and enlarged prostate. PHYSICAL EXAMINATION: VITAL SIGNS: Temperature 99.5, blood pressure 142/83, pulse is 98, respirations 20, O2 saturation 10 0. HEENT: Sclerae anicteric. NECK: Supple. CARDIAC: S1, S2. LUNGS: With decreased breath sounds but good air entry. No rales or wheeze. ABDOMEN: With bowel sounds, soft, does not appear distended, nontender, no rebound or guarding. NEUROLOGIC: The patient is awake and alert, hard of hearing. EXTREMITIES: Did not note any bilateral edema. ASSESSMENT: Status post-acute urinary retention. He has a Flores catheter now. He drained about 4 l iters total yesterday. Dysphagia and abnormal CT scan. There is some thickening showing in the renée palmira cardia and in the esophagus. History of cerebrovascular accident. Impaired hearing. History of hypertension. Patient with possible pneumonia versus malignancy. CT scan of the abdomen and chest reporting multifocal patchy opacities in the right middle and upper lobes. PLAN: Keep patient n.p.o. and continue IV fluids for hydration. He is also on ceftriaxone and Flagy l. Will continue GI prophylaxis of Protonix IV daily and on breathing treatments p.r.n. Follow up u rine culture. A long discussion with the patient's daughter, done by Dr. Matos, discussed in deta ils regarding risks, benefits, and alternatives for upper endoscopy and she will be here tomorrow mor harleen to speak to her father regarding the endoscopy and depending upon results will be here for conse nt. The patient is also being followed by neurology, pulmonology and urology. Thank you for this consult and for allowing us to participate in your patient's care. Will make furt her recommendations based upon patient's clinical course. The patient was seen and the case discusse d with Dr. Matos. [place] CARD cc: [id number] TT: 12/27/2016 20:17:03 Confirmation # [id number] Dictation # [id number] martin
[2016-12-28] MEDS: Albuterol-Ipratrop 3 mg / 0.5 (3 ml) UD IH SCH ×4 (01:03→19:16)
--- NOTE | 2016-12-28 02:14 | CON ---
DATE: 12/27/2016 ADDENDUM HISTORY OF PRESENT ILLNESS: This patient was seen and evaluated today. CT scan and the previous [facility] records are reviewed. This is an addendum to the GI consultation report dictated by Juana Malcolm . I did discuss with the patient's daughter at length. The patient did have some urinary retention, si gnificant, nearly 4 liters of urine drained. The dysphagia, as per the patient's daughter, the sympt oms have been persistent for the last few weeks. The patient is progressively getting worse. PHYSICAL EXAMINATION: ABDOMEN: Soft. There is no mass, no tenderness. IMPRESSION: This patient has dysphagia, etiology is unclear. Has a large hiatal hernia, appears to be esophageal compliment, has some filling defect present in the hernial sac. The patient has a history of lung lesions and pneumonia versus malignancy. PLAN: The present plan is to optimize the IV hydration, optimize the patient, continue the antibioti cs. We will consider upper GI endoscopy. The patient's daughter was very concerned about the risk o f anesthesia, which was clearly explained. The patient needs endoscopic evaluation to further evalua te the cause for the dysphagia. She is fully aware, but she wanted to wait and see how the patient i s doing at least for 24 hours. She is planning to visit the patient tomorrow morning at 8:00 a.m. T hen, she will make a decision about the consent for the endoscopy. I have discussed her case with Dr Sophy Danielson at length. We will continue the PPI. Keep the patient n.p.o. We will continue to closely follow up her care and suggest further management based on the clinical course. Brianne Matos MD cc: [id number] TT: 12/28/2016 02:13:38 Confirmation # [id number] Dictation # [id number] kiran
[2016-12-28] MEDS: Dextrose 5%/0.45% NS 1,000 ML IV SCH ×2 (09:00→14:00)
[2016-12-28] MEDS ORDERED: Collagenase 250 Units/gm Ointment(30 gm) TOP SCH (10:00)
[2016-12-28] MEDS: cefTRIAXone 1 gm 100 ML IVPB SCH (10:12)
[2016-12-28 11:46] LABS: ADD MANUAL DIFF? NO
[2016-12-28 11:59] LABS: BASO # 0.03 K/mm3 (0.0-2.0); BASO % 0.3 % (0.0-3.0); EOS # 0.2 (0.0-0.7); EOS % 1.8 % (1.5-5.0); GRAN # 7.03 (1.4-6.5); GRAN % 76.3 % (50.0-68.0); HEMATOCRIT 33.1 % (42.0-52.0); LYMPH # 1.2 (1.2-3.4); LYMPH % 12.7 % (22.0-35.0); MEAN CELL VOLUME 93.5 fL (80.0-105.0); MEAN CORPUSCULAR HEMOGLOBIN 30.2 pg (25.0-35.0); MEAN CORPUSCULAR HGB CONC 32.3 g/dl (31.0-37.0); MEAN PLATELET VOLUME 9.5 fl (7.0-11.0); MONO # 0.8 (0.1-0.6); MONO % 8.9 % (1.0-6.0); PLATELET COUNT 281 10^3/uL (120.0-450.0); RED CELL DISTRIBUTION WIDTH 13.4 % (11.5-14.5); WHITE BLOOD COUNT 9.2 10^3/ul (4.5-11.0)
[2016-12-28 12:01] LABS: ALB/GLOB RATIO 0.9 (1.1-1.8); BILIRUBIN,TOTAL 0.9 mg/dL (0.2-1.3); POTASSIUM 3.7 mmol/L (3.6-5.0); TOTAL PROTEIN 6.1 g/dL (5.8-8.3)
--- NOTE | 2016-12-28 12:43 | CON ---
DATE: 12/28/2016 REASON FOR CONSULTATION: Cardiac evaluation, rule out congestive heart failure. BRIEF CLINICAL HISTORY: This is an 86-year-old male brought because of unable to eat or drink and co ughing. The patient is very hard of hearing. The patient denies any chest pain, denies shortness of breath, denies any palpitation. PAST MEDICAL HISTORY: Significant for hypertension, urinary tract infection, hyperlipidemia, history of CVA, very hard of hearing. SOCIAL HISTORY: Denies smoking. Denies any history of alcohol abuse. PREVIOUS CARDIAC WORKUP: No documented coronary artery disease or any significant history for boston ry artery disease. Previous echo shows normal sinus. Normal EKG dated 11/01/2013. A recent EKG show s sinus tachycardia. REVIEW OF SYSTEMS: As per HPI. CURRENT MEDICATIONS: Dexilant and Thorazine. ALLERGIES: No known allergies. REVIEW OF SYSTEMS: As per HPI. PHYSICAL EXAMINATION: VITAL SIGNS: Temperature afebrile, heart rate 72, blood pressure 116/67. HEENT: PERRLA. Extraocular muscles intact. NECK: Supple. No carotid bruits. No thyromegaly. CHEST: Clear to auscultation. HEART: S1, S2 regular. ABDOMEN: Soft. EXTREMITIES: Clubbing, cyanosis negative. BLOOD WORKUP: WBC 9. , hemoglobin 10.7, hematocrit 33.1, platelet count 281. Chemistry shows so dium 141, potassium 3.7, chloride 103, carbon dioxide 30, anion gap of 12, BUN 25, creatinine 1.7. T otal protein 6.1, albumin 2.9, albumin/globulin ratio 0.9. IMPRESSION: Protein-calorie malnutrition which was not present on admission, anemia, no documented h istory of coronary artery disease, question was asked whether patient has congestive heart failure. Clinically, patient does not in failure. Questionable history of aspiration pneumonia, mass, multifo marquita opacities on CAT scan noted with a mass in the right lower lobe, hard of hearing, urinary tract i nfection, anemia, possible paroxysmal atrial fibrillation. Previous EKG shows normal sinus. Repeat EKG shows normal sinus with frequent atrial premature contractions. RECOMMENDATIONS: We will start low-dose beta anna to prevent going back into atrial fibrillation. Echo to assess left ventricular function. Continue antibiotic. Continue gentle hydration. No cli nical evidence of heart failure. We will follow with you. Thank you, Dr. Danielson, for providing us the opportunity in taking care of the patient. We will foll ow with you. Raissa Kc MD cc: [id number] TT: 12/28/2016 12:41:53 Confirmation # [id number] Dictation # [id number] en
[2016-12-28] MEDS: Collagenase 250 Units/gm Ointment(30 gm) TOP SCH ×2 (14:00→14:02)
[2016-12-28] MEDS: metroNIDAZOLE IV 250mg/50 ml 50 ML IVPB SCH (15:21)
--- NOTE | 2016-12-28 16:35 | PN ---
DATE: 12/28/2016 Seen and examined at the bedside earlier this morning. His daughter was present. The patient remain s n.p.o. No nausea or vomiting, but patient with abdominal spasms and occasional hiccup. The daught er is currently at the bedside. She reports that this has been going on for almost a month now. No acute overnight events were reported. No complaints of shortness of breath, chest pain. VITAL SIGNS: Temperature is 98.7, pulse is 87, respirations 18. LABORATORY DATA: WBC is 9.2. H and H is 10.7 and 33.1. Platelets are 281. Sodium 141, K is 3.7, B UN 25, creatinine is 1.5. LFTs are within normal limits. PHYSICAL EXAMINATION: HEENT: Sclera is anicteric. NECK: Supple. CARDIAC: S1, S2. LUNGS: With decreased breath sounds but good airflow, no rales or wheeze. ABDOMEN: With bowel sounds, soft, did not appreciate any tenderness, no rebound or guarding. NEUROLOGIC: The patient is hard of hearing. ASSESSMENT: This is an 86-year-old male status post acute urinary retention. The patient came to [facility] with complaints of vomiting and difficulty swallowing. The patient also has a past medica l history of stroke, but never came for medical attention. He has a history of constipation. Abnorm al chest CT, patient with pneumonia versus malignancy, aspiration pneumonia, also hiatal hernia. PLAN: The patient did have a swallowing evaluation yesterday and was able to tolerate applesauce and recommended advance bite size with nectar thick liquid. Detailed discussion done with the daughter at the bedside regarding endoscopy. She is concerned regarding anesthesia and current pulmonary stat us. The patient is awaiting evaluation with pulmonology. We will reconsider endoscopy after pulmona ry evaluation. Currently, the patient is on breathing treatments, is on ceftriaxone, getting IV flui ds for hydration, on Flagyl, Protonix IV. He is also now on Flomax. We will consider advancing the patient's diet to pureed nectar thick liquid. The patient was seen and case discussed with Dr. Matos. Juana CARD cc: [id number] TT: 12/28/2016 16:34:31 Confirmation # [id number] Dictation # [id number] sn
--- NOTE | 2016-12-28 19:00 | PN ---
DATE: 12/28/2016 SUBJECTIVE: The patient is an 86-year-old who came in with abdominal distention. A full liter of ur ine was drained. He was given a trial of feeding today. He was able to tolerate pureed food. His e ndoscopy is on hold for now until his respiratory status is improved. PHYSICAL EXAMINATION: GENERAL: He is awake and alert, hard of hearing, does not answer much according to daughter. If he does not feel comfortable or he is not in familiar environment, he does not like to talk and he shuts himself off. Apparently, he does not look in any distress. VITAL SIGNS: He is afebrile, pulse 88, respirations 18, blood pressure 117/58. LUNGS: Bilateral fair air flow. HEART: S1, S2 audible. ABDOMEN: Soft, nontender, no rebound, no guarding. NEUROLOGIC: He is awake and alert, answers simple questions, moves all extremities. LABORATORY EXAMINATION: WBC is 9.2, hemoglobin 10.7, hematocrit 33.1, platelet of 281. Chemistry: Sodium 141, potassium 3.7, chloride 103, CO2 30, BUN 25, creatinine 1.5, blood sugar 109. Urinalysis shows moderate blood. Blood culture and urine cultures are negative. ASSESSMENT: 1. Status post urinary retention. 2. Bilateral pulmonary infiltrate versus malignancy. 3. Chronic renal insufficiency, probably secondary to chronic distention. 4. History of cerebrovascular accident in remote past. 5. Deconditioning and difficulty walking. PLAN: At this point, patient is on antibiotic, nebulizer treatment. We are gently hydrating him. Toño long is able to have a pureed diet. We will continue that. We will start him on Flomax. He is on meto prolol. He is on Protonix and Rocephin. He has stage IV sacral decubitus that we will get wound ceasar se to evaluate and manage his sacral wound. I had a long discussion with the patient's daughter. In itial plan was to go for endoscopy, but at this point she wants to hold off. She wants the least inva sive and wants her bilateral infiltrate to clear up before she will consent for any procedure. Will give him antibiotic for a couple of days and repeat the CT scan. Will request ID input and patient w ill be consulted. Mike Danielson MD cc: [id number] TT: 12/28/2016 18:59:50 Confirmation # [id number] Dictation # [id number] rn
[2016-12-29] MEDS: Albuterol-Ipratrop 3 mg / 0.5 (3 ml) UD IH SCH ×4 (01:21→20:23)
[2016-12-29] MEDS: Dextrose 5%/0.45% NS 1,000 ML IV SCH ×2 (05:30→21:14)
[2016-12-29 07:09] LABS: ADD MANUAL DIFF? NO
[2016-12-29 07:20] LABS: BASO # 0.05 K/mm3 (0.0-2.0); BASO % 0.5 % (0.0-3.0); EOS # 0.2 (0.0-0.7); EOS % 1.6 % (1.5-5.0); GRAN # 7.96 (1.4-6.5); GRAN % 78.4 % (50.0-68.0); HEMATOCRIT 30.6 % (42.0-52.0); LYMPH # 1.2 (1.2-3.4); LYMPH % 11.7 % (22.0-35.0); MEAN CELL VOLUME 91.6 fL (80.0-105.0); MEAN CORPUSCULAR HEMOGLOBIN 30.8 pg (25.0-35.0); MEAN CORPUSCULAR HGB CONC 33.7 g/dl (31.0-37.0); MEAN PLATELET VOLUME 9.2 fl (7.0-11.0); MONO # 0.8 (0.1-0.6); MONO % 7.8 % (1.0-6.0); PLATELET COUNT 286 10^3/uL (120.0-450.0); RED CELL DISTRIBUTION WIDTH 13.2 % (11.5-14.5); WHITE BLOOD COUNT 10.2 10^3/ul (4.5-11.0)
[2016-12-29 07:29] LABS: ALB/GLOB RATIO 0.9 (1.1-1.8); BILIRUBIN,TOTAL 0.7 mg/dL (0.2-1.3); CALCIUM 7.6 mg/dL (8.4-10.5); POTASSIUM 3.1 mmol/L (3.6-5.0); TOTAL PROTEIN 5.6 g/dL (5.8-8.3)
--- NOTE | 2016-12-29 08:39 | PN ---
DATE: 12/28/2016 This is an addendum to the GI progress report dictated by Juana Malcolm APN. I had a detailed discussi on with the patient's daughter early in the morning. She is very concerned about patient having an e ndoscopy procedure. She feels the patient has been on the same status for the past several days. Monique long wants his pulmonary status to be optimized before going for an endoscopic procedure as she is very concerned about anesthesia and his lung condition. I did also discuss with Dr. Danielson. The patient obviously was tolerating the pureed diet. ____ tolerating the p.o. medication. The reasonable thin g at this point to consider, in view of the concern, is further optimization of the patient's conditi on before going for an upper GI endoscopy. Will continue to closely follow up his care and consider endoscopic evaluation when the patient is more optimized and when the patient's family is also agreea ble. The patient's daughter was fully involved in the care of the patient at the present time, even though the patient feels alert and oriented but he is not in full capacity to make decision, and she is willing to make decision on his behalf at this present time. Thank you very much for allowing us to participate in the care of the patient. Brianne Matos MD cc: [id number] TT: 12/29/2016 08:38:54 Confirmation # [id number] Dictation # [id number] kiran
--- NOTE | 2016-12-29 09:47 | CON ---
DATE: 12/28/2016 REFERRING PHYSICIAN: Dr. Danielson REASON FOR CONSULTATION: Multiple lobe infiltrate, right hilar mass. HISTORY OF PRESENT ILLNESS: This is an 86-year-old gentleman with past medical history significant f or hypertension, hyperlipidemia, history of stroke, very hard of hearing, has persistent hiccups. Ap parently, unable to eat and drink, difficulty swallowing, especially because of persistent hiccups. Also been having repeated recurrent vomiting. Brought in to Emergency Room. Further workup shows th at he had bilateral pulmonary infiltrate, suspicious of mass on the right hilar. Also abnormal CAT s can suspicious of esophageal and gastric findings. He denies any fever or chills. No hemoptysis. T he patient seen by neurology as well as gastroenterology. PAST MEDICAL HISTORY: Stroke, hypertension, hyperlipidemia, recurrent UTI, history of recurrent hicc ups. ALLERGIES: None known. SOCIAL HISTORY: Never smoked. No history of alcohol abuse. FAMILY HISTORY: No significant cardiopulmonary disease reported. MEDICATIONS: He is on Ativan 0.5 mg q. 6 hours, also getting IV fluid D5 half normal saline 60 mL pe r hour, DuoNeb q. 2 hours p.r.n. and q. 6 hours around the clock, Flomax 0.4 mg daily, metoprolol tar trate 25 mg twice a day, Protonix 40 mg daily, Rocephin 1 gram daily, also getting Santyl affected ar ea. REVIEW OF SYSTEMS: No headache, no rhinitis. Has vomiting and nausea, persistent hiccups. Unable t o drink and eat. No chest pain, no abdominal pain, no dysuria. Seen by urology with bladder obstruc tion requiring Flores. No leg pain or leg swelling. PHYSICAL EXAMINATION: GENERAL: Lying in the bed, very uncomfortable with persistent hiccups. VITAL SIGNS: Temperature is 98, heart rate is 74, respiratory rate is 18, blood pressure 117/58, pul se ox is 99% on nasal cannula. HEENT: Moist mucous membranes. Crowded airway. NECK: Supple. No JVD. LUNGS: Has a few scattered rhonchi. Overall, fair airflow. HEART: S1 and S2. ABDOMEN: Soft, nontender. No organomegaly. EXTREMITIES: There is no edema. NEUROLOGIC: Awake, alert, follows simple commands, very hard of hearing though. LABORATORY DATA: Shows hemoglobin 10.7, hematocrit 33.1, WBC 9.2, platelet is 281. INR 1.11, PTT is 32. He had a VBG done, which shows pH 7.46, pCO2 38, O2 38. Sodium 141, potassium 3.7, chloride 10 3, bicarbonate 30, BUN 25, creatinine 1.5, glucose is 109, calcium is 8.0, AST 38, ALT 45, alkaline p hosphatase is 87. Albumin is 2.9. TSH is 1.0. Prostate specific antigen is 6.8. Urinalysis shows WBC 2-5, RBC 2-5. MICROBIOLOGY: Blood culture, urine culture so far there is no growth. Had a CAT scan of the chest done on admission, which was remarkable for multifocal patchy pulmonary i nfiltrates, right middle and upper lobe. There is also 1.8 cm mass in the superior segment of the ri ght lower lobe, which is posterior to the right hilum, suspicious for neoplasm. There is diffuse mil d thickening of thoracic esophagus, possible esophagitis, hiatal hernia, soft tissue density within t he herniated stomach as well as within the gastric cardia, suspicious for gastric neoplasm. There wa s incidental finding of bilateral hydroureteronephrosis. 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 IMPRESSION AND PLAN: Multilobe infiltrate, right hilar mass suspicious for malignancy, also esophage al thickening, hiatal hernia with possible soft tissue mass, need to rule out gastric carcinoma, hist ory of previous stroke, urinary retention, benign prostatic hypertrophy, history of cerebrovascular a ccident. The patient definitely has oropharyngeal dysphagia with persistent hiccups and probably asp irating. Also, had episode of vomiting, probably aspirated. Clinically, his pulmonary status seems good other than hiccups. I will take the luxury to start patient on Lyrica, see if we can stabilize the nerve. Of course, I will recommend to do EGD, be sure there is no gastric and esophageal mass. Will continue to treat with antibiotics for now. Will need to repeat CT to assure the lung mass is s table. If persists, of course will need further workup. Keep head elevated at 45 degrees. High ris k for recurrent aspiration. Gastric prophylaxis. Sequential compression devices to lower extremitie s. We will make further recommendations once I see the effect of Lyrica and also result of EGD. Thank you again and will follow with you. Raissa Penaloza MD cc: [id number] TT: 12/29/2016 09:46:44 Confirmation # [id number] Dictation # [id number] en
[2016-12-29] MEDS: cefTRIAXone 1 gm 100 ML IVPB SCH (10:30)
[2016-12-29] MEDS ORDERED: Potassium Chloride 20 mEq ER Tab PO ONE (11:39)
--- NOTE | 2016-12-29 11:57 | PN ---
DATE: 12/29/2016 Seen and examined at the bedside this morning. The patient does have a history of hard of hearing. He was a little difficult to arouse this morning, but he is moving around the bed when touched or name called. He was given a dose of Ativan earlier this morning. His machine fancy stitcher was at the bedside. No reports of any nausea, vomiting or abdominal pain. He did have episodes of hiccuping. No abdominal spasms noted this morning. When fed, the patient is reported to tolerate the dysphagia diet. No episodes of vomiting or signs of difficulty swallowing were reported. VITAL SIGNS: Temperature 98.4, blood pressure 128/88, pulse 61, respirations 22 , 96% nasal cannula. LABORATORIES: WBC is 10.2, H and H is 10.3 and hematocrit 30.6, platelets is 286. Sodium is 141, K is 3.1, BUN is 22 and creatinine is 1.4. LFTs are within normal limits. PHYSICAL EXAMINATION: HEENT: Sclera is anicteric. NECK: Supple. CARDIAC: S1, S2. LUNG SOUNDS: With scattered rhonchi, did not hear any wheezing. ABDOMEN: With bowel sounds, soft. No tenderness appreciated on palpation. NEUROLOGIC: The patient's eyes are closed, but when touched or calling name, he moves about the bed. ASSESSMENT: An 86-year-old male status post acute urinary retention, also has history of constipation, came with complaints of vomiting and difficulty swallowing. He does have history of hiccups as well. CT scan of chest, abdomen and pelvis done on admission. He is noted to have pneumonia versus malignancy, may be aspiration pneumonia, hiatal hernia and diffuse thickening in the esophagus as well as a soft tissue density in the gastric cardia, concerns for gastric neoplasm, rule out gastric neoplasia. History of stroke with no medical intervention. The patient refused to come to the hospital. PLAN: Pulmonary consultation report was reviewed, appreciate recommendation. Agree for endoscopy to be done. We will speak again with the patient's daughter and he is tentatively scheduled for tomorrow. We will continue the diet. He is on a dysphagia diet. I spoke with nursing staff. The patient should be assisted with meals and fully awake. He is on IV antibiotics of Rocephin, on doxycycline p.o. Continue gastrointestinal prophylaxis, Protonix. The patient on Flomax. The patient will likely get a repeat CT scan in a few days. We will continue to follow closely. The patient was seen and case discussed with Dr. Matos. ADDENDUM: Spoke in detail with daughter at bedside regarding endoscopic evaluation, does not want patient to have EGD, want conservative management. Discuss the possibility of malignancy, if this was found would not want any interventions. Also spoke with Dr. Penaloza regarding case and daughters decision. Juana CARD cc: [id number] TT: 12/29/2016 11:56:11 Confirmation # [id number] Dictation # [id number] en MTDD
[2016-12-29] MEDS ORDERED: Potassium Chloride 10 mEq 100 ML IVPB SCH (12:00)
[2016-12-29] MEDS: Collagenase 250 Units/gm Ointment(30 gm) TOP SCH (12:19)
--- NOTE | 2016-12-29 16:14 | PN ---
DATE: 12/29/2016 REFERRING PHYSICIAN: Dr. Danielson SUBJECTIVE: Is lying in the bed, head at 45 degrees, sleepy, arousable. Daughter is at bedside. Ov ernight, was better. Habilitation Specialist was at bedside. The patient is hard to awake, very sleepy. Paroxysm ally develops hiccups, most of it is abdominal contraction. Daughter given patient water and patient 's response was, has a cough. There is no hemoptysis, no hematemesis, no hematuria, no diarrhea repo rted. OBJECTIVE: GENERAL: No acute distress. VITAL SIGNS: Temp is 98, heart rate is 98, respiratory rate is 20, blood pressure 147/83, pulse ox 9 6% on 2 liter nasal cannula. HEENT: Moist mucous membrane. Crowded airway. NECK: Supple. No JVD. LUNGS: Has scattered rhonchi, fair airflow. HEART: S1 and S2. ABDOMEN: Soft, nontender. No organomegaly. EXTREMITIES: There is no edema. NEUROLOGIC: Sleepy, arousable. MEDICATIONS: He is on Ativan 0.5 mg q.6 hours p.r.n., getting IV fluid D5 half normal saline 60 mL p er hour, doxycycline 100 mg twice a day, DuoNeb q.6 hours, Flomax 0.4 mg daily, metoprolol tartrate 2 5 mg twice a day, potassium supplement, Protonix 40 mg daily, Rocephin 1 gram daily. His Lyrica has been discontinued. LABORATORY DATA: Shows hemoglobin 10.3, hematocrit 30.6, WBC 10.2, platelet count is 286. Sodium 14 1, potassium 3.1, chloride 106, bicarbonate 26, BUN 22, creatinine 1.4, glucose is 100, calcium is 7. 6, AST 33, ALT 37, alk phos is 86, albumin is 2.6. Procalcitonin is 0.10. MICROBIOLOGY: Blood culture, urine culture, there is no growth. IMPRESSION AND PLAN: Multilobar infiltrate, right subhilar area has a suspicious nodule/mass, esopha geal thickening, hiatal hernia, soft tissue density in the ____ area, history of previous stroke, uri nary retention requiring Flores catheter, benign prostatic hypertrophy. I had long discussion with alireza tejada's daughter at bedside. She asked appropriate questions and all was answered to her satisfactio n. She wanted to know ____ of anesthesia for endoscopy. Pulmonary status is acceptable for anesthes ia for endoscopy, but then daughter refused diagnostic workup, understanding that we cannot rule out esophageal/gastric/lung carcinoma if we do not do diagnostic workup, which is a biopsy. According to daughter, she will not do anything different including chemotherapy, radiation therapy or surgery ev en if she knows that this is a malignant process, so she is wishing for her father only supportive ca re to make him comfortable. She is accepting the antibiotics use. I also spoke about oropharyngeal dysphagia, that he needs to be on modified diet and she understands and expressed understanding. She spoke to infectious diseases and gastroenterology in detail. I also spoke to nurse practitioner and informed my conversation with the daughter. I also discussed with Dr. Matos in detail. The joão hter understands the possibility of malignancy and its consequences and she is willing to continue wallace pportive care and no intervention at present time. So, I will suggest modified diet, keep head eleva cat at 45 degrees. Continue antibiotics as per infectious diseases. High risk for recurrent aspirat ion. May use bronchodilators. Thank you and we will follow with you. Raissa Penaloza MD cc: [id number] TT: 12/29/2016 16:13:10 Confirmation # [id number] Dictation # [id number] sn
--- NOTE | 2016-12-29 17:47 | PN ---
DATE: 12/29/2016 LOCATION: The patient is in room 567, bed 2. REASON FOR CONSULTATION AND FOLLOWUP: Cardiac evaluation to rule out CHF. HISTORY OF PRESENT ILLNESS: An 86-year-old male brought to the hospital with cough, unable to eat or drink. The patient is hard of hearing. There is no history of chest pain, shortness of breath, or palpitation. Today, patient is confused, lying flat in bed without any respiratory distress. PHYSICAL EXAMINATION: VITAL SIGNS: Blood pressure 128/88, respirations 22, pulse 61, temperature 98.4. HEAD: Normocephalic. EYES: Pupils normal. Conjunctivae slightly pale. NECK: JVP low. Carotids equal. THORAX: AP diameter normal. LUNGS: No significant rales. CARDIOVASCULAR: S1, S2. ABDOMEN: Soft, nontender, no organomegaly. EXTREMITIES: No clubbing, no cyanosis. LABORATORY DATA: WBC 10.2, hemoglobin 10.3, hematocrit 30.6, platelets 286. Sodium 141, potassium 3 .1, BUN 22, creatinine 1.4, total protein 5.6, albumin 2.6, calcium low 7.6, but albumin also low. IMAGING: CAT scan of the chest showed possible pneumonia, 1.8 cm mass in superior segment of the rig ht lower lobe, patchy opacities, right mid and upper lobe. CT of abdomen and pelvis also suspicious of gastric neoplasm. DIAGNOSES: Protein calorie malnutrition, anemia, CAT scan suggestive of lung mass and also densities , multifocal opacities, possible pneumonia, urinary tract infection, history of possible paroxysmal a trial fibrillation (the patient now in sinus rhythm), hypokalemia. CT abdomen and pelvis suspicious of gastric mass. PLAN: To replace the potassium therapy and patient has been started on beta anna. Echo has been requested. Hopefully, the echo will be done today. The patient is on IV therapy, doxycycline hyclat e 100 mg p.o. q. 12 hours, hand nebulizer therapy, potassium 40 mEq p.o., 1 dose has been already ord ered, metoprolol 25 b.i.d., Lyrica 25 b.i.d., Protonix 40 IV daily. We will also give . We ronald l repeat labs in the morning and we will follow with you. Raissa Leon MD cc: [id number] TT: 12/29/2016 17:46:39 Confirmation # [id number] Dictation # [id number] dn
--- NOTE | 2016-12-29 21:57 | PN ---
DATE: 12/29/2016 ADDENDUM This is an addendum to the GI progress report dictated by Juana Malcolm NP. The patient was seen and evaluated earlier. The patient's daughter was at bedside. I had a detailed discussion with patient's daughter, who is also a community living instructor. Presently she does not want any endoscopi c procedure. The patient has been tolerating the pureed food. She said this could be his baseline s tatus before. She is worried about the anesthetic risk for doing for the endoscopic procedure. More over, she is not contemplating doing any surgical intervention for him or aggressive measures. Would cancel the endoscopic evaluation at the present time. Continue the antibiotics, present treatment. Thank you very much for allowing us to participate in the care of the patient. Brianne Matos MD cc: [phone] TT: 12/29/2016 21:56:38 Confirmation # [id number] Dictation # [id number] tn
--- NOTE | 2016-12-29 22:15 | CP.PCM.CON ---
History of Present Illness - History of Present Illness History of Present Illness: 86 year old male with PMH of HTN, history of CVA, cataracts, history of UTI with prostate problems has not been to a physician in several years because of patient's refusal. He is now brought in by the daughter because of some shortness of breath as well as poor PO intake. According to the daughter, the patient started having hiccups about 5 days prior to admission, which is associated with not being able to swallow his food properly. There is no note of fever or chills, no nausea, no vomiting, no diarrhea. In the ED, CT chest was done which showed multilobar infiltrates. Infectious Diseases consult is requested to further evaluate and manage. Review of Systems - Review of Systems All systems: reviewed and no additional remarkable complaints except (as per HPI ) Past Patient History - Past Social History Smoking Status: Never Smoked - CARDIAC Hx Cardiac Disorders: Yes Hx Congestive Heart Failure: No Hx Hypercholesterolemia: No Hx Hypertension: Yes - PULMONARY Hx Chronic Obstructive Pulmonary Disease (COPD): No Hx Pneumonia: No - NEUROLOGICAL HX Cerebrovascular Accident: Yes - HEENT Hx HEENT Problems: Yes Hx Cataracts: Yes Hx Deafness: Yes - RENAL Hx Renal Failure: No - ENDOCRINE/METABOLIC Hx Diabetes Mellitus Type 1: No Hx Diabetes Mellitus Type 2: No Hx Hypothyroidism: No - HEMATOLOGICAL/ONCOLOGICAL Hx Cancer: No - INTEGUMENTARY Hx Dermatological Problems: No - MUSCULOSKELETAL/RHEUMATOLOGICAL Hx Arthritis: No Hx Rheumatoid Arthritis: No - GASTROINTESTINAL Hx Gastroesophageal Reflux: No - GENITOURINARY/GYNECOLOGICAL Hx Genitourinary Disorders: Yes (urinary retention) Hx Incontinence: Yes Hx Prostate Problems: Yes Hx Urinary Tract Infection: Yes - PSYCHIATRIC Hx Depression: No Hx Emotional Abuse: No Hx Physical Abuse: No Hx Substance Use: No - SURGICAL HISTORY Hx Surgeries: No Meds Allergies/Adverse Reactions: Allergies Allergy/AdvReac Type Severity Reaction Status Date / Time No Known Allergies Allergy Verified 11/01/13 08:07 - Medications Medications: Current Medications Albuterol/Ipratropium (Duoneb 3 Mg/0.5 Mg (3 Ml) Ud) 3 ml IH Q2H PRN PRN Reason: Shortness of Breath Albuterol/Ipratropium (Duoneb 3 Mg/0.5 Mg (3 Ml) Ud) 3 ml IH [id number] [facility] Last Admin: 12/29/16 01:21 Dose: Not Given Collagenase (Santyl) 0 gm TOP DAILY [facility] Last Admin: 12/28/16 14:02 Dose: Not Given Doxycycline Hyclate (Doryx) 100 mg PO Q12 JOSE ARMANDO PRN Reason: Protocol Ceftriaxone Sodium (Rocephin 1 Gram Ivpb) 100 mls @ 100 mls/hr IVPB DAILY JOSE ARMANDO PRN Reason: Protocol Last Admin: 12/28/16 10:12 Dose: 100 mls/hr Dextrose/Sodium Chloride (Dextrose 5%/0.45% Ns 1000 Ml) 1,000 mls @ 60 mls/hr IV [id number] [facility] Last Admin: 12/29/16 05:30 Dose: 60 mls/hr Lorazepam (Ativan) 0.5 mg IVP Q6H PRN; Protocol PRN Reason: Anxiety Last Admin: 12/29/16 05:28 Dose: 0.5 mg Metoprolol Tartrate (Lopressor) 25 mg PO BID [facility] Last Admin: 12/28/16 18:16 Dose: 25 mg Pantoprazole Sodium (Protonix Inj) 40 mg IVP DAILY [facility] Last Admin: 12/28/16 10:12 Dose: 40 mg Pregabalin (Lyrica) 50 mg PO BID [facility] Last Admin: 12/28/16 23:37 Dose: Not Given Tamsulosin HCl (Flomax) 0.4 mg PO DAILY [facility] Last Admin: 12/28/16 12:47 Dose: 0.4 mg Physical Exam - Constitutional Appears: Non-toxic, No Acute Distress - Head Exam Head Exam: NORMAL INSPECTION - Neck Exam Neck exam: Negative for: Lymphadenopathy, Meningismus - Respiratory Exam Respiratory Exam: Decreased Breath Sounds - Cardiovascular Exam Cardiovascular Exam: +S1, +S2 - GI/Abdominal Exam GI & Abdominal Exam: Soft. absent: Tenderness Results - Vital Signs Recent Vital Signs: Last Vital Signs Temp 98.6 F 12/28/16 12:00 Pulse 88 12/28/16 18:16 Resp 18 12/28/16 12:00 BP 115/61 12/28/16 18:16 Pulse Ox 100 12/27/16 06:00 - Labs Result Diagrams: 12/29/16 06:30 12/29/16 06:30 Labs: Laboratory Results - last 24 hr 12/28/16 12/28/16 11:40 11:40 WBC 9.2 D RBC 3.54 Hgb 10.7 L Hct 33.1 L MCV 93.5 MCH 30.2 MCHC 32.3 RDW 13.4 Plt Count 281 MPV 9.5 Gran % 76.3 H Lymph % (Auto) 12.7 L [place] % (Auto) 8.9 H Eos % (Auto) 1.8 Baso % (Auto) 0.3 Gran # 7.03 H Lymph # 1.2 [place] # 0.8 H Eos # 0.2 Baso # 0.03 Sodium 141 Potassium 3.7 Chloride 103 Carbon Dioxide 30 Anion Gap 12 BUN 25 H Creatinine 1.5 H Est GFR ( Amer) 53 Est GFR (Non-Af Amer) 44 Random Glucose 109 Calcium 8.0 L Total Bilirubin 0.9 AST 38 ALT 45 Alkaline Phosphatase 87 Total Protein 6.1 Albumin 2.9 L Globulin 3.2 Albumin/Globulin Ratio 0.9 L Assessment & Plan - Assessment and Plan (Free Text) Plan: Assessment Sepsis secondary to multilobar right-sided community-acquired pneumonia HTN history of CVA cataracts history of UTI with prostate problems Plan Started patient on Rocephin and Doxycycline (Day 3 total antibiotics already); should complete 5-7 days of therapy - when ready for discharge, the patient may be switched to PO antibiotics to complete the course of therapy Discussed with Dr. Danielson
[2016-12-30] MEDS: Albuterol-Ipratrop 3 mg / 0.5 (3 ml) UD IH SCH ×4 (02:03→20:36)
--- NOTE | 2016-12-30 06:58 | PN ---
DATE: 12/29/2016 SUBJECTIVE: The patient is 86 years old. I came to see him, has been sleeping so daughter advised m e not to wake him up. However, upon observation, he seems to be comfortable, not in acute distress. According to nurse, he had an episode of being combative last night. He was given Ativan although t he daughter did not like it. For his safety, he had soft wrist restraints , but daughter protes cat that also so the restraints were discontinued and patient was placed on 1:1 so he does not pull o ut his catheter or IV line. OBJECTIVE: GENERAL: On examination, he is comfortable. VITAL SIGNS: He is afebrile, pulse 80, respirations 20, blood pressure 112/61. LUNGS: Clear. HEART: S1, S2 audible. ABDOMEN: Soft, nontender. LABORATORY DATA: WBC 12.2, hemoglobin 10.3, hematocrit 31.6, platelets 286. Chemistry: Sodium 141, potassium 3.1, chloride 106, CO2 of 26, BUN 22, creatinine 1.4, blood sugar 100. Blood culture and urine culture negative. ASSESSMENT: 1. Multi lobar pneumonia with chest mass. 2. Esophageal thickening versus hiatal hernia. 3. Mild dementia with agitation. 4. History of cerebrovascular accident in the past. 5. Benign prostatic hypertrophy. 6. Hypokalemia. 7. Normocytic anemia. 8. Impaired hearing. PLAN: I discussed with the daughter who is by the bedside at length. She does not want any restrain ts placed or have tranquilizer given to patient, that is why he is on 1:1. Will continue to monitor his respiratory status and vital signs. The patient does not want any intervention or any inva sive procedures. She is very concerned that although medically it is indicated and recommended that he should have endoscopy done, she is not sure her father should undergo any unnecessary trauma or go ing through anesthesia prior to endoscopy. She is adamant to discuss with the punch operator before s he makes any decision. She thinks even if there is any cancerous process going on, she would not lik e him to have any biopsy done or chemo/radiation done. For that reason, she only wants supportive ca re. She is even willing to take him home if he can receive IV antibiotics at home. Then, I explaine d to her she needed a doctor who can follow him as an outpatient as she does not have one. She will think about it. If she is able to get a doctor who can do house calls and monitor his respiratory st atus and the related symptoms, she might even get him discharged home. We will reevaluate the patien t in the a.m. after the patient's daughter discusses his condition with other consultants. Mike Danielson MD cc: [id number] TT: 12/30/2016 06:58:01 Confirmation # [id number] Dictation # [id number]
[2016-12-30 07:09] LABS: ALB/GLOB RATIO 0.9 (1.1-1.8); BILIRUBIN,TOTAL 0.8 mg/dL (0.2-1.3); CALCIUM 8.2 mg/dL (8.4-10.5); TOTAL PROTEIN 6.4 g/dL (5.8-8.3)
[2016-12-30 07:10] LABS: MEAN CELL VOLUME 91.9 fL (80.0-105.0); MEAN CORPUSCULAR HEMOGLOBIN 30.3 pg (25.0-35.0); MEAN CORPUSCULAR HGB CONC 32.9 g/dl (31.0-37.0); MEAN PLATELET VOLUME 9.3 fl (7.0-11.0); RED CELL DISTRIBUTION WIDTH 13.3 % (11.5-14.5); WHITE BLOOD COUNT 9.2 10^3/ul (4.5-11.0)
--- NOTE | 2016-12-30 07:47 | CON ---
DATE: 12/29/2016 PSYCHIATRIC CONSULTATION HISTORY OF PRESENT ILLNESS: The patient is an 86-year-old male who was brought to the [facility] Room by his daughter. He had been feeling ill, unable to eat or drink, vomiting and difficulty swallowing. Apparently, while he was admitted and worked up, he was found to have bilateral pulmona ry infiltrate with a possible malignancy in hilar area. He had urinary retention which was resolved and he has a Flores catheter in place now. The patient last night became increasingly confused to a p oint where he became highly agitated, pulling on his intravenous. I spoke at length with the patient 's daughter at the patient's bedside. She is very upset that the patient had a restraint applied las t night on his upper extremities to prevent him from pulling out IV. The patient also has had a cons ultation with a waste water or water plant operator who noted the patient had some dysphagia and he has had a large hi atal hernia with an esophageal component. The possible of concern that the patient might be having a spiration pneumonia. The patient was kept n.p.o. Her food counter attendant and waste water or water plant operator were conc erned that it is possible that the patient might have a GI malignancy and advised endoscopy, but the patient's daughter was concerned about him able to tolerate anesthesia for endoscopic procedure. PAST MEDICAL HISTORY: Includes a history of cerebrovascular disease with mild stroke in the past. [place] is hearing impaired. He has been hospitalized 3 years ago for persistent hiccups. He has a histor y of UTIs, history of hyperlipidemia and hypertension. CURRENT MEDICATIONS: Include DuoNeb treatments, Protonix, Rocephin IV, Flomax, Lopressor, Doryx, Lyr ica, he has an order but has not had any at all today. LABORATORY DATA: Reveals his metabolic profile: Sodium 141, potassium this morning 3.1. Rest of el ectrolytes are all normal. BUN is 22, creatinine 1.4, estimated GFR is 48, calcium 7.6. He had a tr oponin 1 level 2 days ago. It was 0.07. The patient's albumin is 2.6. The patient has normal thyro id function studies. He has a procalcitonin 0.10. The patient had a chest CT which reveals multifoc al patchy opacities in the right middle and upper lobes and at one point 8 cm mass in the superior se gment of the right lower lobe posterior to the right hilum, suspicious for possible neoplasm. The alireza tejada had a CT scan of the head on 12/26/2016. There was no intracranial mass, hemorrhage, or eviden ce of infarct. He had age-related atrophy and chronic microvascular disease. He had an old left fro ntal and high parietal encephalomalacia, probably secondary to an old infarct. PERSONAL HISTORY: He is for many years and is retired. The patient has no history of alcoho l or substance abuse or previous psychiatric treatment. REVIEW OF SYSTEMS: I am unable to ascertain due to the patient's confusion and severe hard of hearin g. PHYSICAL EXAMINATION: VITAL SIGNS: Blood pressure is 128/88, pulse 61, respirations 22 per minute, O2 saturation 96%. He is afebrile. MENTAL STATUS: The patient was unable to cooperate with a routine mental status examination, althoug h his daughter at bedside says he recognizes her and he knows he is in the hospital and he knows the year. The patient, while sitting at bedside, began getting highly agitated, shaking his fist at his daughter. She was trying to calm him down with some difficulty. He was obviously quite confused. IMPRESSION: The patient has mild delirium with periodic agitation. The patient has a history of old right frontal infarct, parietal infarct. He has pneumonia. He has some swallowing difficulty. He has history of recent urinary retention. He has a Flores catheter now in place. He is severely hard of hearing. History of hypertension and hyperlipidemia. PLAN: Given the fact the patient is so agitated at this time, I will order and daughter agrees to le t me have nurse give him 10 mg IM of Geodon to calm him down and hopefully make him more comfortable. I spoke with the nurse at length and discussed with her management with the patient. I also spoke at length with the patient's daughter and explained my findings and my advice in terms of how to care for the patient, her father, at this time. I strongly recommend that he has 24-hour care. She agre es to stay with him overnight. At this end, I will reevaluate him tomorrow. Wong Barcenas MD cc: [id number] TT: 12/29/2016 19:31:38 Confirmation # [id number] Dictation # [id number] mn
[2016-12-30] MEDS: cefTRIAXone 1 gm 100 ML IVPB SCH (09:35)
--- NOTE | 2016-12-30 11:46 | PN ---
DATE: 12/30/2016 The patient is in room 567, bed 2. REASON FOR CONSULTATION AND FOLLOWUP: Cardiac evaluation to rule out CHF. HISTORY OF PRESENT ILLNESS: An 86-year-old male brought to the hospital with cough, unable to eat or drink. The patient is hard of hearing. There is no history of chest pain, shortness of breath, or palpitation. The patient's mentation is much better today. He does not seem to be confused today. He is lying flat in bed without any chest pain, shortness of breath, or palpitation. PHYSICAL EXAMINATION: VITAL SIGNS: Blood pressure 119/66, respirations 20, pulse 90, temperature 98.8. HEAD: Normocephalic. EYES: Pupils normal. Conjunctivae are slightly pale. NECK: JVP low. Carotids equal. THORAX: AP diameter normal. LUNGS: No rales. CARDIOVASCULAR: S1, S2, systolic murmur. No rub. ABDOMEN: Soft, nontender, no organomegaly. Bowel sounds normal. EXTREMITIES: No clubbing, no cyanosis. LABORATORY DATA: WBC 9.2, hemoglobin 11.2, hematocrit 34.0, platelets 281. Sodium 143, potassium 4. 0. BUN 18, creatinine 1.5, random glucose 116. AST and ALT normal. NT-proB natriuretic pep 1890. Total protein 6.4, albumin 3.0. DIAGNOSES: Protein calorie malnutrition, anemia. CAT scan suggestive of lung mass, as well as multi focal opacities, possible pneumonia, urinary tract infection, history of history of possible paroxysm al atrial fibrillation. The patient maintaining sinus rhythm now. CT of abdomen and pelvis suspicio us of gastric mass. PLAN: The patient's potassium yesterday was low. Today, the patient's potassium is normal. Clinica lly, no evidence of CHF at present. Continue IV fluid as ordered, doxycycline hyclate 100 mg p.o. q. 12 hours, hand nebulizer therapy, metoprolol 25 b.i.d., Lyrica 25 b.i.d., Protonix 40 IV daily, ceft riaxone 100 mL IV daily. We will continue present therapy. The patient's echo is pending, and we will follow with you with e cho report when it is done. Raissa Leon MD cc: [phone] TT: 12/30/2016 11:46:04 Confirmation # [id number] Dictation # [id number] jn
--- NOTE | 2016-12-30 12:19 | PN ---
DATE: 12/30/2016 The patient is an 86-year-old male currently being treated for pneumonia and sepsis. The patient has also had intermittent extreme confusion. He is hard of hearing. He also at times gets agitated, sw inging his fist at the staff. The patient last night had an episode where they could not calm him do wn verbally, and he was given a p.r.n. dose of Geodon 10 mg IM at 4:02 a.m. The patient had been als o biting, hitting, kicking at staff. Following that, the patient became more calm, relaxed. The patient's mental status today - he is awake, he is somewhat restless, but manageable. I spoke at length with the patient's attending physician and also aide caring for the patient, who stated she i s able to calm him down without use of medicine at this time. CURRENT MEDICATIONS: He is receiving DuoNeb treatments, IV fluids, IV Protonix, Rocephin IV, Santyl, Flomax, Lopressor, doxycycline, p.r.n. Geodon, Lyrica, which has not been given. CURRENT LABORATORY DATA: His white count is 9200, hemoglobin 11.2, platelet count 281,000. His meta bolic profile: Sodium 143, potassium 4.0, chloride 108, CO2 of 27, anion gap 12. BUN 18, creatinine 1.5. Estimated GFR 44, random glucose 116, calcium 8.2. His NT-proB natriuretic peptide is 1890. Albumin is 3.0. I reviewed the nursing notes and doctor's notes. CURRENT VITAL SIGNS: His blood pressure is 119/66, pulse 90, respirations 20 per minute. He is afeb rile. O2 saturation on room air last evening was 94%. IMPRESSION: The patient has delirium with intermittent severe agitation, aggressive behavior. The p atient has sepsis. He has multilobar pneumonia. He has renal insufficiency, is severely hard of hea ring. He has anemia, history of frontoparietal old cerebrovascular accident with encephalomalacia, h as cataracts, history of urinary tract infection. PLAN: Case discussed with nurse. Regarding medication, he has an order for 10 mg of Geodon q. 4 h p .r.n. for severe agitation. I also will write an order for Seroquel 25 mg q. 4 h p.r.n. Instructed the nurse, if need to give medication, try Seroquel and after an hour, ____ them to use Geodon. The patient is aware of possible prolonged QT interval, but does not seem to have any issues with this at this time. We will order EKG. We will also order Seroquel 50 mg at bedtime p.r.n. for restlessness in view of the fact that he had a difficult night last night behaviorally. We will continue to yazmin tor the mental status. Wong Barcenas MD cc: [id number] TT: 12/30/2016 12:13:04 Confirmation # [id number] Dictation # [id number] jn
[2016-12-30] MEDS: Collagenase 250 Units/gm Ointment(30 gm) TOP SCH (12:39)
--- NOTE | 2016-12-30 15:19 | CARD ---
APPROVED REPORT EKG Measurement Heart [id number] MO [id number] <Conclusion> Sinus rhythm with short MO with premature atrial complexes Otherwise normal ECG
--- NOTE | 2016-12-30 16:00 | CARD ---
APPROVED REPORT EXAM: Two-dimensional and M-mode echocardiogram with Doppler and color Doppler. INDICATION R/O CHF/LVFX 2D DIMENSIONS LVOT Diameter1.9 (1.8-2.4cm) M-Mode DIMENSIONS Aortic Root3.90 (2.2-3.7cm)Aortic Cusp Exc.0.60 (1.5-2.0cm) Aortic Valve AoV Peak Bvfwdijo889.0cm/sAoV VTI84.1cmAO Peak GR.47mmHg LVOT Peak Jaswefnl99.2cm/sLVOT VTI21.30cmAO Mean GR.28mmHg LEROY (VMAX)0.83cs7QLI (VTI)0.72cm2 Mitral Valve MV E Ycpwpphr01.0cm/sMV A Admdnduu627.0cm/sE/A ratio0.6 TDI Lateral E' Peak V6.14cm/sMedial E' Peak V5.95cm/sE/Lateral E'12.5 E/Medial E'12.9 Pulmonary Valve PV Peak Brajuuhe87.8cm/sPV Peak Grad.1mmHg Tricuspid Valve TR Peak Nohyvwjf892nx/sRAP [id number] Peak Gr.35mmHg KMXF66akIf LEFT VENTRICLE The left ventricle is normal size. There is borderline to mild concentric left ventricular hypertrophy. The left ventricular function is normal.EF-55-60% There is normal LV segmental wall motion. Transmitral Doppler flow pattern is Grade II-pseudonormal filling dynamics. No left ventricle thrombus noted on this study. There is no ventricular septal defect visualized. There is no left ventricular aneurysm. There is no mass noted in the left ventricle. RIGHT VENTRICLE The right ventricle is mildly dilated. There is normal right ventricular wall thickness. Systolic function of RV is mildly reduced. ATRIA The left atrium size is normal. The right atrium size is normal. The interatrial septum is intact with no evidence for an atrial septal defect. AORTIC VALVE The aortic valve is calcified and displays decreased opening. There is trace aortic regurgitation. There is severe valvular aortic stenosis. There is no aortic valvular vegetation. MITRAL VALVE The mitral valve is thickened but opens well. Mitral regurgitation is trace. There is no mitral valve stenosis. There is no evidence of mitral valve prolapse. TRICUSPID VALVE The tricuspid valve leaflets are thickened , but open well. There is mild to moderate tricuspid regurgitation.RVSP-45 mmof Hg. There is no tricuspid valve stenosis. There is no tricuspid valve prolapse or vegetation. PULMONIC VALVE The pulmonic valve is not well visualized. GREAT VESSELS The aortic root is normal in size. The ascending aorta is normal in size. The pulmonary is not well visualized. The IVC is dilated. PERICARDIAL EFFUSION There is no pleural effusion. There is no pericardial effusion. <Conclusion> The left ventricle is normal size. There is borderline to mild concentric left ventricular hypertrophy. The left ventricular function is normal.EF-55-60% The right ventricle is mildly dilated. Systolic function of RV is mildly reduced. There is trace aortic regurgitation. There is severe valvular aortic stenosis. Mitral regurgitation is trace. There is mild to moderate tricuspid regurgitation.RVSP-45 mmof Hg. The IVC is dilated. There is no pericardial effusion. No Vegetation or thrombus noted.
--- NOTE | 2016-12-30 17:50 | PN ---
DATE: 12/30/2016 SUBJECTIVE: The patient is an 86-year-old, seen and examined. Somewhat confused and disoriented. O pens eyes on verbal command. Denies any chest pain. According to the aide who is 1:1, he ate apples auce and had some drink in breakfast. PHYSICAL EXAMINATION: GENERAL: He is sleepy, but arousable, opened eyes, but does not communicate. VITAL SIGNS: He is afebrile, pulse 74, respirations 18, blood pressure 141/78. LUNGS: Bilateral fair airflow, no rhonchi or crackle. HEART: S1, S2 audible. ABDOMEN: Soft, nontender, no rebound, no guarding. NEUROLOGIC: He is sleepy but arousable. Moves all extremities. LABORATORY: Sodium 143, potassium 4.0, chloride 108, CO2 27, BUN 18, creatinine 1.5, blood sugar of 116. WBC is 9.2, hemoglobin 11.2, hematocrit 34, platelet 281. Blood culture and urine cultures are negative. ASSESSMENT: 1. Status post urinary retention and 4 liters of urine was drained. 2. Benign prostatic hypertrophy, questionable prostatic mass. 3. Gastroesophageal thickening, esophagitis versus hiatal hernia. 4. Bilateral lung opacities that is pneumonia versus malignancy. PLAN: I had a long discussion with the patient's daughter, Sultana. She does not want any intervention including endoscopy, colonoscopy or biopsy of the lung masses. She even wants Flores catheter remove d because she thinks that it is making Dad agitated and that is why he is not cooperative. So will d iscontinue Flores catheter and monitor his urine retention by ultrasound. Will continue antibiotic; t hat is, doxycycline. Discontinue IV fluids. His antibiotic has been changed to p.o. doxycycline. R ocephin can be changed to Vantin 200 twice a day. The patient has sacral decubitus. Local care is skyler hager done for that. The patient's daughter, Sultana, is also against all antipsychotics. She does not want her to be on any psych medication. CONCLUSION: I will remove Flores catheter and see patient's behavior. If he is improving and more co operative, will make a discharge plan in the a.m. on p.o. antibiotic. Mike Danielson MD cc: [phone] TT: 12/30/2016 17:49:34 Confirmation # [id number] Dictation # [id number] mn
--- NOTE | 2016-12-30 18:23 | PN ---
DATE: 12/30/2016 Seen and examined at the bedside earlier this morning. The patient was awake and alert, sitting up i n the bed. He is on 1:1. The patient is reported to be tolerating food with assistance. No reports of any current bowel movements. VITAL SIGNS: Temperature is 98.7, blood pressure 119/66, pulse 90, respirations 18, 96 on room air. LABORATORY DATA: WBC 9.2, H and H is 11.2 and 34.0, platelets 281. Sodium is 143, K is 4.0, BUN 18, creatinine is 1.5. LFTs are within normal limits. BNP today 1890. PHYSICAL EXAMINATION: HEENT: Sclerae anicteric. NECK: Supple. CARDIAC: S1, S2. LUNGS: With decreased breath sounds, but good aeration. ABDOMEN: With bowel sounds. Soft, nontender. No rebound or guarding. No spasms are noted. ASSESSMENT: This is an 86-year-old male with a history of constipation, came with complaints of vomi ting and difficulty swallowing. The patient also has history of hiccups. He did have a CAT scan of the chest, abdomen and pelvis reporting possible gastric neoplasm and lung malignancy. History of ce rebrovascular accident, although does not come to the hospital for evaluation. Clinically patient wi th pneumonia, possible esophageal thickening versus hiatal hernia, mild dementia. PLAN: Continue with dysphagia diet with nectar thick liquids with assistance. As previously discuss ed, daughter does not want any invasive procedures, prefers conservative management. Recommend head of bed to at least be 40 degrees. Continue GI prophylaxis. He is on Protonix IV daily. The patient has been put on oral doxycycline. He is on Flomax. He had status post urinary retention. He is al so on IV Rocephin and evaluated by cardiology for rule out any CHF. The patient was seen and case di scussed with Dr. Matos and the nursing staff. Juana Yun STEPHIE cc: [id number] TT: 12/30/2016 18:22:11 Confirmation # [id number] Dictation # [id number] lynette
--- NOTE | 2016-12-31 00:37 | PN ---
DATE: 12/30/2016 REFERRING PHYSICIAN: Dr. Danielson. SUBJECTIVE: The patient is lying in the bed, head at 45 degrees. No acute distress, very hard of he aring. There is no significant cough, no nausea, no vomiting, no diarrhea. Apparently, Flores cathet er was removed. Had urinary retention and was placed back in. No leg pain or leg swelling. OBJECTIVE: GENERAL: No acute distress. VITAL SIGNS: Temp is 98, heart rate 74, respiratory rate is 18, blood pressure 141/78, pulse ox 94% on room air. HEENT: Moist mucous membrane. No ulcer or oral thrush noted. NECK: Supple. No JVD. LUNGS: Has a fair airflow with few rhonchi. HEART: S1, S2. ABDOMEN: Soft, nontender. No organomegaly. EXTREMITIES: There is no edema. NEUROLOGIC: Awake, alert, does follow simple commands. MEDICATIONS: He is on doxycycline 100 mg twice a day, DuoNeb q. 6 hours, Flomax 0.4 mg daily, Geodon 10 mg q. 6 hours p.r.n., metoprolol tartrate 25 mg twice a day, Protonix 40 mg daily, Rocephin 1 gra m daily, Seroquel 25 mg q. 4 hours p.r.n. LABORATORY DATA: Shows hemoglobin 11.2, hematocrit 34.0, WBC 9.2, platelet is 281. Sodium 143, pota ssium 4.0, chloride 108, bicarbonate 27, BUN 18, creatinine 1.5, glucose 116, calcium is 8.2, AST 37, ALT 43, alkaline phosphatase is 96. ProBNP 1890, albumin is 3.0. Procalcitonin is 0.10. Microbiol ogy: Blood cultures, urine culture, there is no growth. Had echocardiogram done today, which shows left ventricle is normal size. There is a borderline to mild concentric left ventricular hypertrophy , LV ejection fraction is 55% to 60%. Right ventricle systolic fraction is 45, IVC is dilated. IMPRESSION AND PLAN: Multilobar pulmonary infiltrate, probably has aspiration. There are suspicious nodules and mass in the right lung, esophageal thickening, hernia, questionable soft tissue de nsity, history of previous stroke, urinary retention. Has a Flores catheter probably has benign prost atic hypertrophy. I had a long discussion with the patient's daughter yesterday. She does not want any aggressive testing including endoscopy and including bronchoscopy and EGD understanding the risk of cancer and . She is only wishing supportive care. Requesting to discharge the patient home, that he has a better care at home with home care and patient feels more comfortable at home and I ag ree with her. At present time, there is not actively anything going on than he needs Flores catheter, needs to keep head elevated at 45 degrees, aspiration precaution. May continue antibiotics as per i nfectious diseases, high risk for recurrent aspiration pneumonia. I informed the patient's daughter yesterday that any way we could be helpful or he does not feel well, she can bring the patient back [facility], but she is insisting to take the patient home and will stay home. So, for now, we will lizbeth nue to make the patient comfortable. Thank you and will follow with you. Raissa Penaloza MD cc: [phone] TT: 12/31/2016 00:37:09 Confirmation # [id number] Dictation # [id number] mn
[2016-12-31] MEDS: Albuterol-Ipratrop 3 mg / 0.5 (3 ml) UD IH SCH ×3 (01:24→13:45)
[2016-12-31 07:23] LABS: ALB/GLOB RATIO 0.8 (1.1-1.8); BILIRUBIN,TOTAL 0.8 mg/dL (0.2-1.3); CALCIUM 8.2 mg/dL (8.4-10.5); TOTAL PROTEIN 6.1 g/dL (5.8-8.3)
[2016-12-31 07:36] LABS: POTASSIUM 4.1 mmol/L (3.6-5.0)
[2016-12-31] MEDS: Dextrose 5%/0.45% NS 1,000 ML IV SCH (08:06)
--- NOTE | 2016-12-31 08:19 | PN ---
DATE: 12/30/2016 The patient seen earlier this morning in room 567, bed 2. PHYSICAL EXAMINATION: VITAL SIGNS: Temperature is 98, blood pressure is 140/70, respiratory rate of 16. HEENT: Unremarkable. NECK: Supple. LUNGS: Have decreased breath sounds. HEART: Normal S1, S2. ABDOMEN: Soft. LABORATORY DATA: Reveals a white count of 9.2, hemoglobin of 11. BUN of 18, creatinine of 1.5. Benito robiology, blood cultures, and urine cultures are negative. Review of the orders reveals the patient to be on doxycycline and ceftriaxone. ASSESSMENT AND PLAN: This is an 86-year-old male with sepsis secondary to multilobar right-sided com munity-acquired pneumonia, hypertension, cerebrovascular accident, on day #4 of doxycycline and ceftr iaxone and should complete his 5-7 days. May switch to p.o. antibiotics. We will follow with you. Frank Chaidez MD cc: 350 TT: 12/30/2016 23:38:25 Confirmation # [id number] Dictation # [id number] tn
[2016-12-31 08:28] VITALS: RESP 20; O2SAT 93
[2016-12-31] MEDS: Pantoprazole 40 mg Susp UD PO SCH (08:34)
[2016-12-31] MEDS: cefTRIAXone 1 gm 100 ML IVPB SCH (10:58)
[2016-12-31] MEDS: Collagenase 250 Units/gm Ointment(30 gm) TOP SCH (10:58)
--- NOTE | 2016-12-31 11:07 | PN ---
DATE: 12/31/2016 The patient is in room 567, bed #2. REASON FOR CONSULTATION AND FOLLOWUP: Cardiac evaluation, rule out CHF, severe aortic stenosis. HISTORY OF PRESENT ILLNESS: The patient is an 86-year-old male brought to the hospital with cough, u nable to eat or drink. The patient is very hard of hearing. The patient denies any chest pain, shor tness of breath, palpitation. The patient at the time was confused, but yesterday and today his ment ation is much better. The patient is lying flat in bed without any respiratory distress. The patien t had echocardiogram on 12/30/2016 which showed left ventricle size is normal, borderline mild concen tric left ventricular hypertrophy, left ventricle function normal, EF 55-60%, right ventricle is mild ly dilated, RV systolic function mildly reduced, severe valvular aortic stenosis, mild to moderate tr icuspid regurg with RVSP 45 mmHg, trace aortic regurgitation, trace mitral regurg. PHYSICAL EXAMINATION: VITAL SIGNS: Blood pressure 140/58, respirations 20, pulse 77, temperature 98.3. HEAD: Normocephalic. EYES: Pupils normal. Conjunctivae slightly pale. NECK: JVP low. Carotid equal. THORAX: AP diameter normal. LUNGS: Clear. CARDIOVASCULAR: S1, S2, ejection systolic murmur. No rub. ABDOMEN: Soft. No tenderness, no organomegaly. Bowel sounds normal. EXTREMITIES: No clubbing, no cyanosis. LABORATORY DATA: Shows WBC 9.2, hemoglobin 11.2, hematocrit 34.0, platelet 281. Sodium 144, potassi um 4.1, BUN 18, creatinine 1.6. AST, ALT normal. Total protein 6.1, albumin 2.8. DIAGNOSES: Protein-calorie malnutrition, anemia, CAT scan suggestive of lung mass as well as multifo marquita opacities, possible pneumonia, urinary tract infection; history of possible paroxysmal atrial fib rillation, patient now in sinus rhythm; CT of the abdomen and pelvis suspicious of gastric mass; matheus re aortic stenosis on echocardiogram with normal function, right ventricle mildly dilated, and right ventricular systolic function mildly reduced, mild pulmonary hypertension, mild to moderate tricuspid regurgitation. PLAN: Clinically, no evidence of congestive heart failure. With given the pulmonary and gastric pat hology, the patient is not a candidate for any intervention at this moment from cardiac point of view . Will continue medically. The patient already getting DuoNeb hand nebulizer therapy, metoprolol 25 b.i.d., Rocephin 1 gram IV daily, Seroquel 25 mg p.o. q. 4 hours p.r.n. Will continue present therap y. Will follow with you. Raissa Leon MD cc: [phone] TT: 12/31/2016 11:07:23 Confirmation # [id number] Dictation # [id number] mn
--- NOTE | 2016-12-31 15:54 | PN ---
DATE: 12/31/2016 Seen and examined at the bedside this afternoon. The patient is lethargic. His switchgear repairer at home is at the bedside. Apparently, the patient was agitated last night. He was given Geodon and Seroquel; Geodon last night and a dose of Seroquel earlier this morning. No reports of any nausea, vomiting o r abdominal pain. The patient's lunch tray is at the bedside as he is not fully awake. On painful s timuli, the patient opens his eyes, sternal rub. VITAL SIGNS: Temperature 98.3, blood pressure 140/58, pulse 77, respirations 20, 93% on room air. LABORATORIES: Sodium 144, K 4.1, BUN 18, creatinine is 1.6. LFTs within normal limits. PHYSICAL EXAMINATION: HEENT: Sclera is anicteric. NECK: Supple. CARDIAC: S1, S2 LUNG SOUNDS: With decreased breath sounds. No rales or wheeze. ABDOMEN: With bowel sounds, soft, does not feel distended. No tenderness appreciated on deep palpat ion. No organomegaly. EXTREMITIES: No edema. NEUROLOGIC: The patient is somewhat sedated, but arousable with painful stimulation. ASSESSMENT: An 86-year-old male with cerebrovascular accident, not treated, with no medical manageme nt, patient refused to come to the hospital. Pneumonia, esophageal thickening versus hiatal hernia, possible gastric neoplasm or lung malignancy, constipation. No further episodes of nausea, vomiting or dysphagia. The patient also with dementia, was agitated last night. PLAN: Continue current diet. He is on a pureed, nectar thick diet. Aspiration precautions. Feed w ith assistance. He is on a 1:1. Status post urinary retention, although patient has poor output, bl adder scan showed 500 mL. He is on Flomax. Continue Protonix, on oral doxycycline and ceftriaxone. The patient's daughter has deferred from any invasive procedures or evaluations. The patient was seen and case discussed with Dr. Matos. Juana Yun STEPHIE cc: 451 TT: 12/31/2016 15:53:54 Confirmation # [id number] Dictation # [id number] en
--- NOTE | 2016-12-31 18:01 | PN ---
DATE: 12/31/2016 SUBJECTIVE: The patient is an 86-year-old, seen and examined, and he seems to be sedated, calm accor ding to the nurse on duty. He was agitated earlier this morning and so he was given a dose of Geodon and he received his Seroquel. Currently, he is in a deep sleep and minimally responsive. Upon the daughter's request, his Flores was removed last night and 3 hours earlier, his Doppler was found to be , but sonogram shows that he has urine of 500 mL in his bladder. PHYSICAL EXAMINATION: VITAL SIGNS: He is afebrile, pulse 77, respirations 20, blood pressure 140/58. LUNGS: Bilateral fair airflow, no rhonchi or crackle. HEART: S1, S2 audible. ABDOMEN: Soft, nontender, no rebound, no guarding. NEUROLOGIC: The patient is sleepy and does not respond by opening eyes or to painful stimuli. LABORATORY: Sodium 144, potassium 4.1, chloride 108, CO2 26, BUN 18, creatinine 1.6, blood sugar of 90. His blood culture and urine cultures are negative. ASSESSMENT AND PLAN: 1. Status post urine retention. 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 He had reported a drain, b ut upon daughter's request, his Flores was removed last night. He did not void urine. We will do ano ther sonogram. 2. Bilateral pulmonary masses; pneumonia versus malignancy. 3. Renal insufficiency, improving. 4. Mild dementia with agitation. 5. Gastroesophageal thickening. 6. Aortic stenosis. 7. Tricuspid regurgitation. PLAN: At this point, with his acute delirium, the patient's family does not want any sedatives. We will discontinue all sedatives. Continue on doxycycline and nebulizer treatment as needed. He is on Flomax. We will continue on metoprolol, Protonix and continue on Rocephin. We will watch him anoth er 24 hours. Once the sedative effect of Seroquel is tapered down, we will keep him on 1:1. Once he is more alert, we will make discharge plan to discharge him on p.o. doxycycline. Since the family d oes not want any aggressive interventions, endoscopy is on hold and there is no plan to do a CT-guide d biopsy, either. Mike Danielson MD cc: 413 TT: 12/31/2016 18:01:00 Confirmation # [id number] Dictation # [id number] dn
--- NOTE | 2016-12-31 18:07 | PN ---
DATE: 12/31/2016 HISTORY OF PRESENT ILLNESS: The patient is an 86-year-old white male currently being treated in the medical surgical department for pneumonia and sepsis. The patient also has delirium and confusion wi th periods of agitation. Last night at 3:00 a.m., he began kicking and swinging at staff members. Toño long was found to have urinary retention. He had a Flores. He was given 25 mg of Seroquel. The patient gradually rested to sleep through the night. Currently, his mental status: He is sitting with a regional medical centere duty aide. His eyes were closed when I came to the bed. He is very hard of hearing. I gently a roused him and he was awake and looked around the room. He tried to ask him questions, but despite b eing awake, he had difficulty communicating with me. I spoke to him right into his hearing device. CURRENT MEDICATIONS: The last dose of Seroquel he got was at 3:15 this morning. Other medicines he has received are: He gets DuoNeb treatments, Rocephin 1 gram IVP, Forest, Flomax, Lopressor 25 mg b.i. d., doxycycline p.o. q. 12 hours, Protonix p.o. MEDICAL DECISION MAKING: I reviewed nursing notes. As noted above, he was attempting to climb out o f bed, kicking and hitting staff at 3:15 a.m. this morning, was given p.r.n. Seroquel. Prior to that , had a bladder scan with 680 mL of urine in his bladder. The patient's staff [facility], to inform her of possible reinsertion of Flores catheter at 6:00 a.m., whi ch was discontinued at 5:35 p.m. on 12/30/2016. I reviewed the notes of a telephonic nurse case manager, who met with the daughter and discussed at length the disposition. The daughter was made aware that [facility] nurses will follow up with patient to evaluate for home services upon discharge. CURRENT LABORATORY DATA: As of yesterday, his white count was 9200, hemoglobin 11.2, platelet count 281,000. His metabolic profile today: Sodium 144, potassium 4.1, chloride 108, CO2 26, anion gap 14, BUN 18, creatinine 1.6, estimated GFR of 41. The rest of profile: Abnormalities: Calcium was 8.2, a lbumin of 2.8. MOST RECENT VITAL SIGNS: His blood pressure is 117/71, pulse 105. He is afebrile, respirations 20 pe r minute. IMPRESSION: The patient has dementia with superimposed intermittent delirium with behavioral disturb ance. The patient has possible lung mass. He has pneumonia. He has a history of paroxysmal atrial tachycardia, now in sinus rhythm. He has CT scans of the abdomen suspicious of gastric mass. He has severe aortic stenosis. The patient has a history of pulmonary hypertension and mild to moderate tri cuspid regurgitation. PLAN: The patient currently has psychotropic medicine. We will continue to monitor mental sta tus. Wong Barcenas MD cc: [phone] TT: 12/31/2016 18:07:16 Confirmation # [id number] Dictation # [id number]
--- NOTE | 2016-12-31 19:44 | PN ---
DATE: 12/31/2016 The patient is in bed in room 567, bed 2. No fevers and chills. PHYSICAL EXAMINATION: VITAL SIGNS: Temperature is 97, blood pressure is 117/70, respiratory rate of 16. HEENT: Unremarkable. NECK: Supple. LUNGS: Have decreased breath sounds. HEART: Normal S1, S2. ABDOMEN: Soft. LABORATORY DATA: Reveals a white count of 9.2, hemoglobin 11, BUN of 18, creatinine of 1.6. Procalc itonin is 0.1. ASSESSMENT AND PLAN: This is an 86-year-old male seen early this morning. This admission, the patie nt has sepsis secondary to multilobar right-sided community-acquired pneumonia, hypertension, cerebro vascular accident, day #5 of doxycycline and ceftriaxone to complete 5-7 days, may switch to p.o. ant ibiotics. Review of the orders confirms the patient's doxycycline and ceftriaxone are active. Frank Chaidez MD cc: 350 TT: 12/31/2016 19:43:08 Confirmation # [id number] Dictation # [id number] dn
--- NOTE | 2016-12-31 21:54 | PN ---
DATE: 12/31/2016 REFERRING PHYSICIAN: Dr. Danielson. SUBJECTIVE: He is lying in the bed, head at 45 degree, under 1:1 supervision, sleepy, arousable, not much cough, no sputum production, no nausea, no vomiting, no diarrhea, no leg pain or leg swelling. OBJECTIVE: GENERAL: In no acute distress. VITAL SIGNS: Temperature is 98, heart rate is 77, respiratory rate is 20, blood pressure 140/ , pulse ox 93% on room air. HEENT: Moist mucous membranes, edentulous. NECK: Supple. No JVD. LUNGS: Has a fair airflow with a few rhonchi. HEART: S1 and S2. ABDOMEN: Soft, nontender. No organomegaly. EXTREMITIES: There is no edema. NEUROLOGIC: Awake, alert, very hard of hearing. Does follow some simple commands. MEDICATIONS: He is on doxycycline 100 mg twice a day, DuoNeb q.2 hours p.r.n., Flomax 0.4 mg daily, metoprolol tartrate 25 mg twice a day, Protonix 40 mg a.c.b., Rocephin 1 gram daily. LABORATORY DATA: Shows hemoglobin from yesterday 11.2. Sodium 144, potassium 4.1, chloride 108, bic arbonate 26, BUN 18, creatinine 1.6, glucose 90, calcium is 8.2, AST 40, ALT 42, alkaline phosphatase is 102, albumin is 2.8. MICROBIOLOGY: Blood cultures and urine culture is unremarkable. IMPRESSION AND PLAN: Pulmonary infiltrate with possibly hiatal hernia with thickening of the e sophagus, may have a soft tissue density and urinary retention. Pulmonary point of view, he is stabl e on room air with pulse ox 93%. Probably has chronic aspiration, aspiration precaution. Keep head elevated at 45 degrees. Be careful with any feedings. Daughter does not want any aggressive care ab out pulmonary infiltrate versus tumor. The patient is DNR and DNI. Family requesting the patient to be discharged home under the daughter's care and caretakers' care and the process is in progress Ap preciated social psychologist help. Fall precaution. Overall, poor prognosis. Thank you and will follow with you. Raissa Penaloza MD cc: [phone] TT: 12/31/2016 21:54:01 Confirmation # [id number] Dictation # [id number] dn
--- NOTE | 2017-01-01 05:28 | PN ---
DATE: 12/31/2016 ADDENDUM This is an addendum to the GI progress report dictated by CATY Clements. This patient was seen an d evaluated earlier. Discussed with the patient's daughter, who was at bedside. The patient was rodrigue tated earlier. The patient received Seroquel. The patient was agitated and received the medication. The patient has been very sleepy and lethargic. The patient is due to be discharged today. We ronald l hold the discharge. PLAN: The discharge scheduled for today is to be held. Continue the present management otherwise. Brianne Matos MD cc: [phone] TT: 01/01/2017 05:27:27 Confirmation # [id number] Dictation # [id number] dn
[2017-01-01] MEDS: cefTRIAXone 1 gm 100 ML IVPB SCH (09:07)
[2017-01-01] MEDS: Collagenase 250 Units/gm Ointment(30 gm) TOP SCH (09:07)
[2017-01-01] MEDS: Pantoprazole 40 mg Susp UD PO SCH (09:07)
[2017-01-01 09:14] VITALS: BP 122/84; PULSE 89; TEMP 98.2
--- NOTE | 2017-01-01 17:58 | PN ---
DATE: 01/01/2017 The patient has been seen in room 567, bed 2. The patient was seen early this morning. No fevers an d no chills. Overall in poor condition. PHYSICAL EXAMINATION: VITAL SIGNS: Temperature is 97, blood pressure was 117/70, respiratory rate of 20, heart rate of 89. HEENT: Unremarkable. NECK: Supple. LUNGS: Have decreased breath sounds. HEART: Normal S1, S2. ABDOMEN: Soft, nontender. LABORATORY DATA: Are reviewed. ASSESSMENT AND PLAN: This is an 86-year-old male who was seen early this morning in room 567, bed 2, admitted with sepsis secondary to multilobar right-sided community-acquired pneumonia and cerebrovas cular accident. It is day #6 of doxycycline and ceftriaxone, complete with 5-7 days, may switch to p .o. antibiotics. Long-term prognosis is poor. Frank Chaidez MD cc: 350 TT: 01/01/2017 17:57:34 Confirmation # [id number] Dictation # [id number] dn
--- NOTE | 2017-01-01 22:03 | PN ---
DATE: 01/01/2017 SUBJECTIVE: This patient appears much more comfortable now. More alert, oriented. The patient is t olerating the diet. PHYSICAL EXAMINATION: VITAL SIGNS: Stable. ABDOMEN: Soft. There is no tenderness. RECOMMENDATIONS: I had a detailed discussion with the patient's daughter before. The patient would benefit from long-term pureed diet. Complete the antibiotics as per ID. I will sign off on co nsult as needed. The patient is also due to be discharged at the time of reevaluation. Thank you very much for allowing us to participate in the care of the patient. Brianne Matos MD cc: 416 TT: 01/01/2017 22:03:21 Confirmation # [id number] Dictation # [id number] mn
--- NOTE | 2017-01-01 22:58 | DS ---
SUMMARY: The patient is an 86-year-old who was admitted on 12/26. Family brought him because of alt ered mental status. He was having persistent hiccup, was having difficulty swallowing, so he was adm itted and workup showed that he has gastroesophageal junction thickening and, also, he was found to h ave distended bladder. He was catheterized and bladder was decompressed and full liter of urine was drained. The patient was evaluated by mold machine operator, urologist and infectious disease. He was start ed on IV antibiotic. He did well. He was, at times, found to be confused and disoriented. He was e valuated by psychiatrist and was given antipsychotics, but family, especially the daughter, Clint, was not very happy by giving antipsychotic and tranquilizers. She thought, because of the Flores cathete r, he is agitated and not cooperative, so, the day before yesterday his catheter was removed and he w as just trickling some urine. He was found to have almost 800 mL of urine in the bladder yesterday e vening, so he had straight cath done. According to family, he does have straight cath done once in a while, he had similar issue couple of years ago and then he got better. So on examination, the jany ent seems to be confused and disoriented; however, not combative. His oral tranquilizer and antipsyc hotic were held and Flores was removed. Family wants to take him home because they have 24-hour care person who will watch. DISCHARGE DIAGNOSIS: 1. Bilateral pulmonary infiltrate versus mass. I had a long discussion multiple times with daughter. She does not want any intervention, so he was discharged on p.o. antibiotic, doxycycline 100 twice a day for 5 days with nebulizer treatment. 2. Gastroesophageal junction thickening, probably esophagitis, cannot rule out malignancy. 3. Mild dementia. 4. Atonic bladder. 5. Aortic stenosis. 6. Tricuspid regurgitation. PLAN: The patient is discharged home. Family will take care of him and they will intermittently cat heterize him. I then discussed with daughter at length that, given his age, he has an atonic bladder , he has prostatic hypertrophy. So, he is being discharged home on Protonix 40 daily, Flomax 0.4 mg daily, doxycycline 100 mg twice a day and nebulizer treatment and she will find a doctor who can foll ow him up as a house call. So, he was discharged home in stable condition. Mike Danielson MD cc: [id number] TT: 01/01/2017 22:58:15 kiran
--- NOTE | 2017-01-03 08:21 | PN ---
DATE: 01/01/2017 REASON FOR CONSULTATION AND FOLLOWUP: Cardiac evaluation ____severe aortic stenosis. BRIEF CLINICAL HISTORY: An 86-year-old male brought to the hospital with cough, unable to eat or dri nk. The patient is very hard of hearing. Denies any chest pain, shortness of breath, any palpitatio n. Last echo 12/30/2016 shows a left ventricular size normal, but mild concentric LVH of 55%-60%, rig ht ventricle was mildly dilated, RV ____ reduced, severe aortic, mild to moderate tricuspid regurg, R V systolic pressure 45. Trace aortic regurgitation, trace mitral regurgitation. Denies any chest pa in. PHYSICAL EXAMINATION: VITAL SIGNS: Temperature afebrile, heart rate ____, blood pressure 122/84. HEENT: PERRLA. Extraocular muscles intact. NECK: Supple. No carotid bruits. No thyromegaly. CHEST: Clear to auscultation. HEART: S1, S2 regular. ABDOMEN: Soft. EXTREMITIES: Clubbing and cyanosis negative. BLOOD WORKUP: As follows: WBC 9.____, hemoglobin 11.____, hematocrit 34.0, platelet count 281. Ch emistry shows sodium 144, potassium 4, chloride 108, carbon dioxide 26, anion gap of 14, BUN 18, crea tinine 1.6. IMPRESSION: Protein calorie malnutrition moderate which was not present on admission. Severe aortic stenosis, preserved left ventricular function. Decompensated congestive heart secondary to valvular dysfunction. Lung mass, multifocal opacities, possible pneumonia, urinary tract infection, history of paroxysmal atrial fibrillation, now patient in normal sinus. CT scan of the abdomen shows suspici ous for severe aortic stenosis. Echocardiography: Preserved left ventricular function, ____ systoli c function mildly reduced, pulmonary hypertension, mild to moderate tricuspid regurgitation. RECOMMENDATION: Continue beta-anna. Continue IV antibiotic. Continue Seroquel. Overall the pat ient's condition putting together ____ mass or exploration or biopsy. Suggest aggressive medical hector atment and comfort care. We will follow with you. Thank you, Dr. Danielson, for providing the opportunity in taking care of the patient. Raissa Kc MD cc: [id number] TT: 01/01/2017 11:49:28 Confirmation # [id number] Dictation # [id number]
--- NOTE | 2017-01-03 12:01 | PQF SEPSIS ---
01/03/17 Dr. Danielson, Sepsis is documented on progress notes of 12/31 and 01/01, by Drs. Barcenas and Kaylynn. Do you agree, disagree, undetermined, other with this diagnosis? If you agree, was systemic sepsis present on admission? Thank you. Clarification of your documentation is requested to better reflect the severity of illness and intensity of treatment of your patient. Indicators present [] Temp < 96.8 or > 100.4 [] WBC count > 12,000/mm3 or <000/mm3 or 10% immature neutrophils [x] Heart Rate > 90 [] Respiratory Rate > 20 [] Fever or hypothermia [] Chills [] Positive blood cultures [] Hypotension [] Metabolic acidosis (Elevated lactate level, anion gap or reduced blood pH) [] Acute confusion /Altered Mental Status [] Shock [] Other: [x b/l pneumonia ] Location in the medical record that reflects the above clinical findings: [] Treatment Provided: [] PHYSICIAN'S RESPONSE Based on your medical judgment of the clinical indicators outlined above, are you treating this patient for a known or suspected: [] Sepsis / Septicemia Please specify organism if known [] [] SIRS (Systemic Inflammatory Response Syndrome) [] Severe Sepsis (Sepsis with Associated Organ Dysfunction) [] Fever of Unknown Origin [x] Other, please indicate: [ b/l pneumonia [] If Unable to Determine, please check the box, sign and date. Present On Admission (POA) Indicator: [] Present at the time of admission [] Not present at the time of admission [] Clinically Undetermined In responding to this query, please exercise your independent professional judgment. The fact that a question is asked does not imply that any particular answer is desired or expected. Thank you for your clarification on this documentation. If you have any questions please call:[ ] * Thank you, [ ] turntable man BOUBACAR
== END 2017-01-01 11:05 | disposition home health service (06) | DRG 177 ==
LOC: ED 18:43 → ERH 21:10 → 2RNO 22:58 → 5RNO 12-28 21:22
PROVIDERS: ADMIT Internal Medicine; ATTEND Internal Medicine
DX: J69.0 Pneumonitis due to inhalation of food and vomit (principal); L89.154 Pressure ulcer of sacral region, stage 4; N17.9 Acute kidney failure, unspecified; E44.0 Moderate protein-calorie malnutrition; I27.2 Other secondary pulmonary hypertension; F03.91 Unspecified dementia, unspecified severity, with behavioral disturbance; G93.89 Other specified disorders of brain; K92.2 Gastrointestinal hemorrhage, unspecified; N13.30 Unspecified hydronephrosis; R47.01 Aphasia; N12 Tubulo-interstitial nephritis, not specified as acute or chronic; I47.1 Supraventricular tachycardia; N32.0 Bladder-neck obstruction; I48.0 Paroxysmal atrial fibrillation; I12.9 Hypertensive chronic kidney disease with stage 1 through stage 4 chronic kidney disease, or unspecified chronic kidney disease; R13.12 Dysphagia, oropharyngeal phase; I07.1 Rheumatic tricuspid insufficiency; I08.3 Combined rheumatic disorders of mitral, aortic and tricuspid valves; D64.9 Anemia, unspecified; E78.5 Hyperlipidemia, unspecified; E87.6 Hypokalemia; H26.9 Unspecified cataract; H91.90 Unspecified hearing loss, unspecified ear; I35.0 Nonrheumatic aortic (valve) stenosis; I49.1 Atrial premature depolarization; I69.398 Other sequelae of cerebral infarction; K20.9 Esophagitis, unspecified; K40.20 Bilateral inguinal hernia, without obstruction or gangrene, not specified as recurrent; K44.9 Diaphragmatic hernia without obstruction or gangrene; N18.9 Chronic kidney disease, unspecified; N31.2 Flaccid neuropathic bladder, not elsewhere classified; N40.1 Benign prostatic hyperplasia with lower urinary tract symptoms; N47.2 Paraphimosis; Z66 Do not resuscitate; Z78.1 Physical restraint status; Z87.440 Personal history of urinary (tract) infections; Z87.891 Personal history of nicotine dependence; Z99.3 Dependence on wheelchair; K59.00 Constipation, unspecified; R32 Unspecified urinary incontinence; R06.6 Hiccough; R26.9 Unspecified abnormalities of gait and mobility; R91.8 Other nonspecific abnormal finding of lung field; R53.81 Other malaise; R41.0 Disorientation, unspecified; K21.9 Gastro-esophageal reflux disease without esophagitis

== ENCOUNTER 2017-01-27 11:50 | Emergency (ER) | payer MEDICARE, BC ==
[2017-01-27 11:51] VITALS: BMI 24.7
[2017-01-27] MEDS ORDERED: Cefepime 1gm in NS 100ml 1 GM/100 ML BAG IVPB STA (12:24)
[2017-01-27 12:42] LABS: ADD MANUAL DIFF? NO
[2017-01-27 13:45] LABS: ALB/GLOB RATIO 1.1 (1.1-1.8); BILIRUBIN,TOTAL 0.8 mg/dL (0.2-1.3); CALCIUM 8.3 mg/dL (8.4-10.5); POTASSIUM 4.8 mmol/L (3.6-5.0); TOTAL PROTEIN 5.8 g/dL (5.8-8.3)
[2017-01-27 13:47] LABS: URINE COLOR LIGHT BROWN (YELLOW)
[2017-01-27 13:59] LABS: URINE APPEARANCE TURBID (CLEAR)
[2017-01-27 14:00] LABS: PH,URINE 7.5 (4.7-8.0); URINE BILIRUBIN MODERATE (NEGATIVE); URINE BLOOD LARGE (NEGATIVE); URINE GLUCOSE (UA) NEGATIVE (NEGATIVE); URINE KETONE NEGATIVE (NEGATIVE); URINE PROTEIN >=300 mg/dL (<30 mg/dL)
[2017-01-27 14:01] LABS: URINE BACTERIA MOD (NEG); URINE LEUKOCYTE ESTERASE LARGE Leu/uL (NEGATIVE); URINE RBC TNTC /hpf (0-2); URINE WBC TNTC /hpf (0-6)
[2017-01-27 14:02] LABS: INR 1.01 (0.93-1.08); PARTIAL THROMBOPLASTIN TIME 21.7 Seconds (23.7-30.8)
--- NOTE | 2017-01-27 14:42 | ED PDOC ---
Arrival/HPI - General Time Seen by Provider: 01/27/17 12:16 Historian: Patient - History of Present Illness Narrative History of Present Illness (Text): 01/27/17 12:10 Juan David Chisholm is an 86 year old male, whose past medical history includes BPH and bedsores, who presents to the emergency department brought by his caretakers who state he had low oxygen levels for a few hours as per caregiver. Patient's caregiver states that Patient's oxygen levels were at 82% on room air. He was found to have a fever at triage. Patient has also been drowsy, and tremulous. Patient's caregiver notes that patient's urine has been cloudy. Patient does not have any shortness of breath, vomiting, diarrhea, cough. PMD: Dr. Bowers Time/Duration: 1-3 hours Symptom Onset: Gradual Symptom Course: Improving Severity Level: Mild Activities at Onset: Light Context: Home Past Medical History - Provider Review Nursing Documentation Reviewed: Yes - Cardiac Hx Cardiac Disorders: Yes Hx Congestive Heart Failure: No Hx Hypertension: Yes - Pulmonary Hx Chronic Obstructive Pulmonary Disease (COPD): No Hx Pneumonia: No - Neurological HX Cerebrovascular Accident: Yes - HEENT Hx HEENT Disorder: Yes Hx Cataracts: Yes Hx Deafness: Yes - Renal Hx Renal Failure: No - Endocrine/Metabolic Hx Diabetes Mellitus Type 1: No Hx Diabetes Mellitus Type 2: No Hx Hypothyroidism: No - Hematological/Oncological Hx Cancer: No - Integumentary Hx Dermatological Disorder: No - Musculoskeletal/Rheumatological Hx Arthritis: No Hx Rheumatoid Arthritis: No - Gastrointestinal Hx Gastroesophageal Reflux: No - Genitourinary/Gynecological Hx Genitourinary Disorders: Yes (urinary retention) Hx Incontinence: Yes Hx Prostate Problems: Yes Hx Urinary Tract Infection: Yes - Psychiatric Hx Depression: No Hx Emotional Abuse: No Hx Physical Abuse: No Hx Substance Use: No - Past Surgical History Past Surgical History: No Previous - Suicidal Assessment Feels Threatened In Home Enviroment: No Family/Social History - Physician Review Nursing Documentation Reviewed: Yes Family/Social History: No Known Family HX Smoking Status: Never Smoked Hx Alcohol Use: No Hx Substance Use: No Allergies/Home Meds Allergies/Adverse Reactions: Allergies No Known Allergies Allergy (Verified 01/27/17 14:48) Review of Systems - Physician Review All systems were reviewed & negative as marked: Yes - Review of Systems Constitutional: Fevers, Other (low oxygen levels) Eyes: absent: Vision Changes ENT: absent: Hearing Changes Respiratory: absent: SOB, Cough Cardiovascular: absent: Chest Pain Gastrointestinal: absent: Abdominal Pain Genitourinary Male: absent: Urinary Output Changes Musculoskeletal: absent: Back Pain, Neck Pain Skin: absent: Rash, Pruritis Neurological: absent: Headache, Dizziness Endocrine: absent: Polyuria Hemo/Lymphatic: absent: Easy Bleeding Psychiatric: absent: Depression Physical Exam - Physical Exam Narrative Physical Exam (Text): Constitutional: Elderly male lying in stretcher in no acute distress. Head: Normocephalic. Atraumatic. Eyes: PERRL. ENT: Moist mucous membranes. Neck: Supple. Cardiovascular: Tachycardic. Chest: No tenderness. Respiratory: Clear to auscultation bilaterally. GI: Soft. Nontender. Nondistended. Musculoskeletal: No swelling or tenderness. Skin: No rash. Neurologic: Alert, no focal deficit. Vital Signs Temp Pulse Resp BP Pulse Ox 01/27/17 14:52 98.9 F 105 H 15 115/62 98 01/27/17 12:30 101.7 F H 108 H 16 120/71 97 Medical Decision Making ED Course and Treatment: 01/27/17 12:10 Impression: 86 year old male with sepsis with UTI as likely source. Plan: -- EKG -- Chest X-ray -- Blood Culture, VBG -- Urine Culture -- Labs -- Maxipime and IV Fluids -- Reassess and disposition Prior Visits: Notes and results from previous visits were reviewed. Patient last seen in ED on 12/26/16 for hiccups and difficulty keeping food down for the past week. Patient was admitted to hospitalist care for further evaluation. Progress Notes: Reviewed radiology, Chest x-ray showed no infiltrate consolidated. CODE SEPSIS was called as patient's lactate is 3.8. Given that patient is with UTI and sepsis, will require admission for continued IVF, IV antibiotics and close monitoring to improvement prior to discharge with oral antibiotics. I discussed this with the patient and with his daughter via phone. Daughter states to me that she would prefer that the patient be sent home. I explained the risk of worsening condition causing disability or , and she understood. She informed me that the patient knows of his time and would like to be at home in peace. She stated that the patient has sound mental faculties and will make his own decision. I informed the patient personally that he has an infection that could cause . He understood and states that he wishes to be discharged home. I informed him and his caretakers that they can return to the ED at any time. - Lab Interpretations Lab Results: 01/27/17 12:10 01/27/17 12:10 Lab Results 01/27/17 12:10: Urine Color Light brown, Urine Appearance Turbid, Urine pH 7.5, Ur Specific [place] 1.020, Urine Protein >=300 H, Urine Glucose (UA) Negative, Urine Ketones Negative, Urine Blood Large H, Urine Nitrate Positive H, Urine Bilirubin Moderate H, Urine Urobilinogen 1.0 H, Ur Leukocyte Esterase Large H, Urine RBC Tntc, Urine WBC Tntc, Urine Bacteria Mod 01/27/17 12:10: PT 10.9, INR 1.01, APTT 21.7 L 01/27/17 12:10: WBC 14.2 H D, RBC 4.16, Hgb 13.0 L, Hct 38.8 L, MCV 93.3, MCH 31.3, MCHC 33.5, RDW 15.1 H, Plt Count 223, MPV 11.2 H, Gran % 85.2 H, Lymph % ( Auto) 6.7 L, [place] % (Auto) 7.8 H, Eos % (Auto) 0.1 L, Baso % (Auto) 0.2, Gran # 12.13 H, Lymph # 1.0 L, [place] # 1.1 H, Eos # 0.0, Baso # 0.03 01/27/17 12:10: Sodium 138, Chloride 104, Potassium 4.8, Carbon Dioxide 27, Anion Gap 12, BUN 22 H, Creatinine 2.0 H, Est GFR ( Amer) 38, Est GFR ( Non-Af Amer) 32, Random Glucose 109, Calcium 8.3 L, Total Bilirubin 0.8, AST 31 , ALT 29, Alkaline Phosphatase 80, Total Protein 5.8, Albumin 3.0, Globulin 2.8 , Albumin/Globulin Ratio 1.1 01/27/17 12:10: pO2 29 L, VBG pH 7.40, VBG pCO2 46.0, VBG HCO3 28.5 H, VBG Total CO2 29.9 H, VBG O2 Sat (Calc) 62.6, VBG Base Excess 3.0 H, VBG Potassium 5.3 H, Sodium 140.0, Chloride 106.0, Glucose 109, Lactate 3.8 H, FiO2 21.0, Venous Blood Potassium 5.3 H I have reviewed the lab results: Yes - RAD Interpretation Radiology Orders: 01/27/17 12:21 CHEST PORTABLE [RAD] Stat - Medication Orders Current Medication Orders: Discontinued Medications Cefepime HCl (Maxipime 1gm) 1 gm in 100 mls @ 100 mls/hr IVPB STAT STA PRN Reason: Protocol Stop: 01/27/17 13:23 Last Admin: 01/27/17 13:24 Dose: 100 mls/hr Sodium Chloride (Sodium Chloride 0.9%) 2,040 mls @ 4,080 mls/hr IV .Q30M STA Stop: 01/27/17 12:50 Last Admin: 01/27/17 14:52 Dose: 4,080 mls/hr - Scribe Statement The provider has reviewed the documentation as recorded by the Richard Medina Provider Scribe Attestation: All medical record entries made by the Scribe were at my direction and personally dictated by me. I have reviewed the chart and agree that the record accurately reflects my personal performance of the history, physical exam, medical decision making, and the department course for this patient. I have also personally directed, reviewed, and agree with the discharge instructions and disposition. Disposition/Present on Arrival - Present on Arrival Any Indicators Present on Arrival: No History of DVT/PE: No History of Uncontrolled Diabetes: No Urinary Catheter: No History Surgical Site Infection Following: None - Disposition Have Diagnosis and Disposition been Completed?: Yes Diagnosis: UTI (urinary tract infection), Sepsis, Left against medical advice Disposition: AGAINST MEDICAL ADVICE Disposition Time: 15:50 Patient Plan: Discharge Patient Problems: Current Active Problems Problem Status Onset Left against medical advice Acute Sepsis Acute UTI (urinary tract infection) Acute Condition: GUARDED Discharge Instructions (ExitCare): Sepsis (ED) Prescriptions: Levofloxacin [Levaquin] 750 mg PO DAILY #7 tablet Referrals: Peng Bowers DO [Primary Care Provider] - Follow up with primary
[2017-01-27 14:54] LABS: BASO # 0.03 K/mm3 (0.0-2.0); BASO % 0.2 % (0.0-3.0); EOS % 0.1 % (1.5-5.0); GRAN # 12.13 (1.4-6.5); GRAN % 85.2 % (50.0-68.0); HEMATOCRIT 38.8 % (42.0-52.0); LYMPH % 6.7 % (22.0-35.0); MEAN CELL VOLUME 93.3 fL (80.0-105.0); MEAN CORPUSCULAR HEMOGLOBIN 31.3 pg (25.0-35.0); MEAN CORPUSCULAR HGB CONC 33.5 g/dl (31.0-37.0); MEAN PLATELET VOLUME 11.2 fl (7.0-11.0); MONO # 1.1 (0.1-0.6); MONO % 7.8 % (1.0-6.0); PLATELET COUNT 223 10^3/uL (120.0-450.0); RED CELL DISTRIBUTION WIDTH 15.1 % (11.5-14.5); WHITE BLOOD COUNT 14.2 10^3/ul (4.5-11.0)
[2017-01-27 14:55] VITALS: BP 115/62; PULSE 105; RESP 15; TEMP 98.9; O2SAT 98
--- NOTE | 2017-01-27 18:18 | CARD ---
APPROVED REPORT EKG Measurement Heart [id number] <Conclusion> Sinus tachycardia Otherwise normal ECG
--- NOTE | 2017-01-28 10:46 | RAD ---
HISTORY: r/o PNA COMPARISON: 12/26/2016 FINDINGS: LUNGS: No active pulmonary disease. PLEURA: No significant pleural effusion identified, no pneumothorax apparent. CARDIOVASCULAR: Normal. OSSEOUS STRUCTURES: No significant abnormalities. VISUALIZED UPPER ABDOMEN: Normal. OTHER FINDINGS: None. IMPRESSION: No active disease.
== END 2017-01-27 16:08 | disposition left against medical advice (07) ==
LOC: ED 11:50
DX: N39.0 Urinary tract infection, site not specified (principal); A41.9 Sepsis, unspecified organism; N40.0 Benign prostatic hyperplasia without lower urinary tract symptoms; I10 Essential (primary) hypertension; Z86.73 Personal history of transient ischemic attack (TIA), and cerebral infarction without residual deficits
CPT/HCPCS: 71010; 80053; 81001; 82803; 85025; 85610; 85730; 87040; 87086; 93005; 96361; 96365; 99283; J0692; J7040

== ENCOUNTER 2017-03-25 21:01 | Inpatient (IN) | payer MEDICARE ==
--- NOTE | 2017-03-25 21:59 | ED PDOC ---
Arrival/HPI - General Chief Complaint: GI Problem Time Seen by Provider: 03/25/17 21:13 - History of Present Illness Narrative History of Present Illness (Text): 03/25/17 21:49 Mr. Chisholm is a 86 year old male with past medical history significant for gastroesophageal junction thickening, intractable hiccups, HTN, CVA and cataracts presents with episodes of black vomit for the past week. Pt is joined in the room by his son. Family reports over the past week there has been episodes of darkened vomit. Pt reports shortness of breath and difficulty with swallowing associated with intractable hiccups. Patient denies chest pain, fever , diarrhea and black tarry stool. PCP: Dr. Burgos ([facility]) Past Medical History - Provider Review Nursing Documentation Reviewed: Yes - Infectious Disease Hx of Infectious Diseases: None - Cardiac Hx Cardiac Disorders: Yes Hx Congestive Heart Failure: No Hx Hypertension: Yes - Pulmonary Hx Chronic Obstructive Pulmonary Disease (COPD): No Hx Pneumonia: No - Neurological HX Cerebrovascular Accident: Yes - HEENT Hx HEENT Disorder: Yes Hx Cataracts: Yes Hx Deafness: Yes - Renal Hx Renal Failure: No - Endocrine/Metabolic Hx Diabetes Mellitus Type 1: No Hx Diabetes Mellitus Type 2: No Hx Hypothyroidism: No - Hematological/Oncological Hx Cancer: No - Integumentary Hx Dermatological Disorder: No - Musculoskeletal/Rheumatological Hx Arthritis: No Hx Rheumatoid Arthritis: No - Gastrointestinal Hx Gastroesophageal Reflux: No - Genitourinary/Gynecological Hx Genitourinary Disorders: Yes (urinary retention) Hx Incontinence: Yes Hx Prostate Problems: Yes Hx Urinary Tract Infection: Yes - Psychiatric Hx Depression: No Hx Emotional Abuse: No Hx Physical Abuse: No Hx Substance Use: No - Past Surgical History Past Surgical History: No Previous - Anesthesia Hx Anesthesia: Yes Hx Anesthesia Reactions: No Hx Malignant Hyperthermia: No - Suicidal Assessment Feels Threatened In Home Enviroment: No Family/Social History - Physician Review Nursing Documentation Reviewed: Yes Family/Social History: No Known Family HX Smoking Status: Never Smoked Hx Alcohol Use: No Hx Substance Use: No Allergies/Home Meds Allergies/Adverse Reactions: Allergies No Known Allergies Allergy (Verified 03/25/17 21:15) Home Medications: Home Meds Medication Instructions Recorded Confirmed Collagenase [Santyl] 1 appl TD DAILY 03/25/17 03/25/17 Pantoprazole [Protonix EC Tab] 40 mg PO DAILY 03/25/17 03/25/17 Tamsulosin [Flomax] 0.4 mg PO DAILY 03/25/17 03/25/17 Review of Systems - Review of Systems Constitutional: absent: Weight Change, Fevers Eyes: absent: Vision Changes Respiratory: SOB (associated with hiccups) Cardiovascular: absent: Chest Pain, Palpitations Gastrointestinal: Vomiting. absent: Abdominal Pain, Stool Changes, Hematochezia Genitourinary Male: absent: Urinary Output Changes Skin: Skin Lesions (small gluteal wound ) Neurological: absent: Headache, Focal Weakness Psychiatric: absent: Anxiety, Depression Physical Exam Vital Signs Reviewed: Yes Blood Pressure: Hypertensive Pulse: Regular Respiratory Rate: Normal Appearance: Positive for: Well-Appearing Pain Distress: None Mental Status: Positive for: Alert and Oriented X 3 - Systems Exam Head: Present: Atraumatic, Normocephalic Pupils: Present: PERRL Extroacular Muscles: Present: EOMI Neck: Present: Normal Range of Motion Respiratory/Chest: Present: Clear to Auscultation, Good Air Exchange. No: Respiratory Distress, Accessory Muscle Use Cardiovascular: Present: Regular Rate and Rhythm, Murmurs (holosystolic murmur) , Peripheal Pulses Present Abdomen: Present: Tenderness (RLQ with palpation), Normal Bowel Sounds. No: Distention, Peritoneal Signs Genitourinary Male: Present: Other (indwelling montalvo catheter) Upper Extremity: Present: Normal Inspection, NORMAL PULSES. No: Cyanosis, Edema Lower Extremity: Present: Normal Inspection. No: Edema Neurological: Present: GCS=15, CN II-XII Intact, Motor Func Grossly Intact, Normal Sensory Function Psychiatric: Present: Alert Vital Signs Temp Pulse Resp BP Pulse Ox 03/25/17 21:58 98.5 F 03/25/17 21:14 89 16 157/84 H 98 Medical Decision Making ED Course and Treatment: 03/25/17 22:44 Patient seen and examined with resident Came up with treatment and disposition plan with resident (Robbie Bang) 03/25/17 22:10 Impression: Pt is an 86 year old male with past medical history significant for gastroesophageal junction thickening and intractable hiccups who presents with black/charcoal colored emesis episodes over the past week. Differential Diagnosis included but are not limited to: - Upper GI bleed - [place] Plan: - Labs: CBC, CMP, PT, PTT, Type and Screen, Urinalysis, FOBT - Imaging: CT abdomen and pelvis - Meds: Protonix - Reassess and disposition Progress Notes: 03/25/17 22:32 Fecal Occult Test - Positive 03/26/17 00:[address] Saxena and agrees to follow through with CT scan and admission for upper gi bleed rule out (Ad Lyles) - Lab Interpretations Lab Results: 03/25/17 22:09 03/25/17 22:09 Lab Results 03/25/17 22:20: Urine Color Yellow, Urine Appearance Turbid, Urine pH 6.0, Ur Specific [place] 1.025, Urine Protein 100 H, Urine Glucose (UA) Negative, Urine Ketones Negative, Urine Blood Moderate H, Urine Nitrate Negative, Urine Bilirubin Negative, Urine Urobilinogen 1.0 H, Ur Leukocyte Esterase Large H, Urine RBC 2 - 5, Urine WBC Tntc, Ur Epithelial Cells 1 - 3, Urine Bacteria Many 03/25/17 22:15: Blood Type B POSITIVE, Antibody Screen Negative, BBK History Checked Patient has bt 03/25/17 22:09: PT 11.0, INR 1.02, APTT 34.0 H 03/25/17 22:09: Sodium 142, Potassium 4.7, Chloride 102, Carbon Dioxide 30, Anion Gap 15, BUN 29 H, Creatinine 1.4, Est GFR ( Amer) 58, Est GFR (Non- Af Amer) 48, Random Glucose 106, Calcium 9.3, Total Bilirubin 0.5, AST 36, ALT 35, Alkaline Phosphatase 100, Lactate Dehydrogenase 352, Total Creatine Kinase 23 L, Troponin I < 0.01 D, Total Protein 7.6, Albumin 4.0, Globulin 3.6, Albumin/Globulin Ratio 1.1 03/25/17 22:09: WBC 8.6 D, RBC 3.71, Hgb 11.7 L, Hct 35.1 L, MCV 94.6, MCH 31.5 , MCHC 33.3, RDW 14.2, Plt Count 250, MPV 9.4, Gran % 78.6 H, Lymph % (Auto) 12.3 L, [place] % (Auto) 7.3 H, Eos % (Auto) 1.2 L, Baso % (Auto) 0.6, Gran # 6.73 H, Lymph # 1.1 L, [place] # 0.6, Eos # 0.1, Baso # 0.05 - RAD Interpretation Radiology Orders: 03/25/17 21:44 ABD & PELVIS W/O PO OR IV CONT [CT] Stat - Medication Orders Current Medication Orders: Discontinued Medications Pantoprazole Sodium (Protonix Inj) 40 mg IVP STAT STA Stop: 03/25/17 21:43 Last Admin: 03/25/17 22:16 Dose: 40 mg - PA / [employer] / Resident Statement MD/DO has reviewed & agrees with the documentation as recorded. /DO has examined the patient and agrees with the treatment plan. Disposition/Present on Arrival - Present on Arrival Any Indicators Present on Arrival: Yes History of DVT/PE: No History of Uncontrolled Diabetes: No Urinary Catheter: Yes History of Decub. Ulcer: No History Surgical Site Infection Following: None - Disposition Have Diagnosis and Disposition been Completed?: Yes Disposition Time: 00:01 - Disposition Diagnosis: Upper GI bleed Disposition: HOSPITALIZED Patient Problems: Current Active Problems Problem Status Onset Upper GI bleed Acute Condition: GOOD
[2017-03-25 22:33] LABS: ALB/GLOB RATIO 1.1 (1.1-1.8); ALT/SGPT 35 U/L (7-56); AST/SGOT 36 U/L (15-59); BLOOD UREA NITROGEN 29 mg/dL (7-21); CALCIUM 9.3 mg/dL (8.4-10.5); GFR AFRICAN-AMERICAN 58; GFR NON-AFRICAN AMERICAN 48
[2017-03-25 22:37] LABS: BASO # 0.05 K/mm3 (0.0-2.0); BASO % 0.6 % (0.0-3.0); EOS # 0.1 (0.0-0.7); EOS % 1.2 % (1.5-5.0); GRAN # 6.73 (1.4-6.5); GRAN % 78.6 % (50.0-68.0); HEMOGLOBIN 11.7 gm/dL (14.0-18.0); LYMPH # 1.1 (1.2-3.4); LYMPH % 12.3 % (22.0-35.0); MEAN CELL VOLUME 94.6 fL (80.0-105.0); MEAN CORPUSCULAR HEMOGLOBIN 31.5 pg (25.0-35.0); MEAN CORPUSCULAR HGB CONC 33.3 g/dl (31.0-37.0); MEAN PLATELET VOLUME 9.4 fl (7.0-11.0); MONO # 0.6 (0.1-0.6); MONO % 7.3 % (1.0-6.0); PLATELET COUNT 250 10^3/uL (120.0-450.0); RBC 3.71 10^6/uL (3.5-6.1); RED CELL DISTRIBUTION WIDTH 14.2 % (11.5-14.5); WHITE BLOOD COUNT 8.6 10^3/ul (4.5-11.0)
[2017-03-25 22:45] LABS: TROPONIN I < 0.01 ng/mL
[2017-03-25 22:52] LABS: URINE BILIRUBIN NEGATIVE (NEGATIVE); URINE BLOOD MODERATE (NEGATIVE); URINE GLUCOSE (UA) NEGATIVE (NEGATIVE); URINE LEUKOCYTE ESTERASE LARGE Leu/uL (NEGATIVE); URINE NITRATE NEGATIVE (NEGATIVE); URINE PROTEIN 100 mg/dL (<30 mg/dL)
[2017-03-25 22:54] LABS: URINE APPEARANCE TURBID (CLEAR); URINE COLOR YELLOW (YELLOW)
[2017-03-25 23:03] LABS: URINE WBC TNTC /hpf (0-6)
[2017-03-25 23:04] LABS: URINE BACTERIA MANY (NEG)
[2017-03-25 23:05] LABS: INR 1.02 (0.93-1.08)
[2017-03-26] MEDS ORDERED: Cefepime 1gm in NS 100ml 1 GM/100 ML BAG IVPB SCH (02:57)
[2017-03-26] MEDS: Sodium Chloride 0.9% 1,000 ML IV SCH ×2 (03:48→14:54)
[2017-03-26 04:51] VITALS: BMI 19.8
[2017-03-26 07:23] LABS: BASO # 0.06 K/mm3 (0.0-2.0); BASO % 0.8 % (0.0-3.0); EOS # 0.2 (0.0-0.7); EOS % 2.2 % (1.5-5.0); GRAN # 5.39 (1.4-6.5); GRAN % 68.2 % (50.0-68.0); HEMOGLOBIN 9.9 gm/dL (14.0-18.0); LYMPH # 1.6 (1.2-3.4); LYMPH % 20.4 % (22.0-35.0); MEAN CELL VOLUME 93.8 fL (80.0-105.0); MEAN CORPUSCULAR HEMOGLOBIN 30.8 pg (25.0-35.0); MEAN CORPUSCULAR HGB CONC 32.9 g/dl (31.0-37.0); MONO # 0.7 (0.1-0.6); MONO % 8.4 % (1.0-6.0); PLATELET COUNT 212 10^3/uL (120.0-450.0); RBC 3.21 10^6/uL (3.5-6.1); RED CELL DISTRIBUTION WIDTH 14.1 % (11.5-14.5); WHITE BLOOD COUNT 7.9 10^3/ul (4.5-11.0)
[2017-03-26 07:58] LABS: ALB/GLOB RATIO 1.1 (1.1-1.8); ALBUMIN 3.3 g/dL (3.0-4.8); ALT/SGPT 30 U/L (7-56); AST/SGOT 29 U/L (15-59); BLOOD UREA NITROGEN 25 mg/dL (7-21); CALCIUM 8.7 mg/dL (8.4-10.5); GFR AFRICAN-AMERICAN > 60; GFR NON-AFRICAN AMERICAN 57
--- NOTE | 2017-03-26 08:45 | CP.PCM.CON ---
History of Present Illness - History of Present Illness History of Present Illness: Asked by Dr. Bowers for a GI consultation on this patient. 86 year old male with history of HTN, CVA (now wheelchair bound), hearing impairment, chronic constipation, BPH with chronic indwelling montalvo who presents to hospital with complaint of dyspnea and vomiting. He is accompanied by his son at bedside who is able to provide additional information. He describes sudden onset of vomiting beginning 2 days ago with appearance of dark black emesis. He denies associated abdominal pain, nausea, fever/chills, weight loss, rectal bleeding, NSAID use, or change in bowel habits. He also notes hiccups over the past week and yesterday developed shortness of breath but denies chest pain or palpitations. No recurrent episodes of emesis since arrival to hospital last night. No prior endoscopic evaluation. Social history: former smoker (over 20 years ago), no ETOH use Family history: reviewed, patient denies history of GI malignancies Review of Systems - Review of Systems Review of Systems: - All other comprehensive 12 point review of systems performed, negative - Constitutional Constitutional: Malaise - Cardiovascular Cardiovascular: absent: Acrocyanosis, Chest Pain, Chest Pain at Rest, Chest Pain with Activity, Claudication, Diaphoresis, Dyspnea, Dyspnea on Exertion, Edema, Irregular Heart Rhythm, Pain Radiating to Arm/Neck/Jaw, Leg Edema, Leg Ulcers, Lightheadedness, Orthopnea, Palpitations, Paroxysmal Nocturnal Dyspnea, Pedal Edema, Radiating Pain, Rapid Heart Rate, Slow Heart Rate, Syncope, Other - Respiratory Respiratory: Dyspnea - Gastrointestinal Gastrointestinal: Vomiting - Musculoskeletal Musculoskeletal: Muscle Weakness - Neurological Neurological: Abnormal Hearing Past Patient History - Infectious Disease Hx of Infectious Diseases: None - Past Social History Smoking Status: Former Smoker - CARDIAC Hx Cardiac Disorders: Yes (aortic stenosis, abd aortic dissection) - PULMONARY Hx Respiratory Disorders: Yes Hx Pneumonia: Yes (aspiration pneumonia) - NEUROLOGICAL Hx Neurological Disorder: Yes HX Cerebrovascular Accident: Yes Hx Dementia: Yes - HEENT Hx HEENT Problems: Yes Hx Deafness: Yes Hx Macular Degeneration: Yes - RENAL Hx Chronic Kidney Disease: No - ENDOCRINE/METABOLIC Hx Endocrine Disorders: No - HEMATOLOGICAL/ONCOLOGICAL Hx Blood Disorders: No - INTEGUMENTARY Hx Dermatological Problems: Yes (sacral ulcer) - MUSCULOSKELETAL/RHEUMATOLOGICAL Hx Musculoskeletal Disorders: No Hx Falls: Yes - GASTROINTESTINAL Hx Gastrointestinal Disorders: Yes (gastritis, diverticulosis, GI bld) Hx Gastroesophageal Reflux: Yes HX Swallowing Problems: Yes - GENITOURINARY/GYNECOLOGICAL Hx Genitourinary Disorders: Yes (urinary retention w/ chronic montalvo, hiatal hernia) Hx Prostate Problems: Yes Hx Urinary Tract Infection: Yes - PSYCHIATRIC Hx Psychophysiologic Disorder: No Hx Substance Use: No - SURGICAL HISTORY Hx Surgeries: No - ANESTHESIA Hx Anesthesia: Yes Hx Anesthesia Reactions: No Hx Malignant Hyperthermia: No Meds Allergies/Adverse Reactions: Allergies Allergy/AdvReac Type Severity Reaction Status Date / Time No Known Allergies Allergy Verified 03/25/17 21:15 - Medications Medications: Current Medications Cefepime HCl (Maxipime 1gm) 1 gm in 100 mls @ 100 mls/hr IVPB Q24H JOSE ARMANDO PRN Reason: Protocol Last Admin: 03/26/17 03:47 Dose: 100 mls/hr Sodium Chloride (Sodium Chloride 0.9%) 1,000 mls @ 100 mls/hr IV .Q10H [facility] Last Admin: 03/26/17 03:48 Dose: 100 mls/hr Pantoprazole Sodium (Protonix Inj) 40 mg IVP Q12 [facility] Physical Exam - Constitutional Appears: Non-toxic, No Acute Distress - Head Exam Head Exam: NORMAL INSPECTION - Eye Exam Eye Exam: EOMI, Normal appearance - ENT Exam ENT Exam: Mucous Membranes Moist - Respiratory Exam Respiratory Exam: Clear to Auscultation Bilateral - Cardiovascular Exam Cardiovascular Exam: REGULAR RHYTHM, +S1, +S2 Additional comments: 2/6 holosystolic murmur present - GI/Abdominal Exam GI & Abdominal Exam: Normal Bowel Sounds, Soft Additional comments: non tender to palpation in four quadrants no palpable hepato/splenomegaly - Extremities Exam Extremities exam: Positive for: normal inspection - Neurological Exam Neurological exam: Alert, CN II-XII Intact, Oriented x3, Reflexes Normal - Psychiatric Exam Psychiatric exam: Normal Affect, Normal Mood - Skin Skin Exam: Dry, Intact, Normal Color, Warm Results - Vital Signs Recent Vital Signs: Last Vital Signs Temp 98.0 F 03/26/17 06:29 Pulse 74 03/26/17 06:29 Resp 20 03/26/17 06:29 BP 136/67 03/26/17 06:29 Pulse Ox 97 03/26/17 06:29 - Labs Result Diagrams: 03/26/17 07:12 03/26/17 07:12 Labs: Laboratory Results - last 24 hr 03/26/17 03/26/17 07:12 07:12 WBC 7.9 RBC 3.21 L Hgb 9.9 L Hct 30.1 L MCV 93.8 MCH 30.8 MCHC 32.9 RDW 14.1 Plt Count 212 MPV 9.0 Gran % 68.2 H Lymph % (Auto) 20.4 L Bryan % (Auto) 8.4 H Eos % (Auto) 2.2 Baso % (Auto) 0.8 Gran # 5.39 Lymph # 1.6 Bryan # 0.7 H Eos # 0.2 Baso # 0.06 Sodium 140 Potassium 3.8 Chloride 105 Carbon Dioxide 27 Anion Gap 12 BUN 25 H Creatinine 1.2 Est GFR ( Amer) > 60 Est GFR (Non-Af Amer) 57 Random Glucose 101 Calcium 8.7 Total Bilirubin 0.5 AST 29 ALT 30 Alkaline Phosphatase 82 Total Protein 6.5 Albumin 3.3 Globulin 3.1 Albumin/Globulin Ratio 1.1 Assessment & Plan - Assessment and Plan (Free Text) Assessment: HTN History of CVA Chronic constipation BPH Vomiting, normocytic anemia present on bloodwork Dyspnea - CT imaging reviewed by me showing moderate fecal retention, urinary bladder thickening, LLL airspace opacity (possible consolidation), hepatic cyst. Study was non-contrast so bowel not properly evaluated, though no obstructive pathology noted. Plan: - H/H stable, continue to monitor. No recurrent vomiting noted since arrival to hospital. - IV PPI therapy q12h - Clear liquid diet as tolerated - Continue with antibiotic therapy - Obtain blood/urine cultures - Check iron indices - Patient will benefit from EGD evaluation given anemia and clinical presentation. Patient with also similar hospital presentation in December 2016. Discussion had with patient's son at bedside who agrees with treatment plan, risks/benefits of potential endoscopic evaluation explained in detail. Will plan for tuesday pending patient clinical progress. Will continue to monitor patient clinical course.
[2017-03-26 09:08] LABS: INR 1.04 (0.93-1.08); PROTHROMBIN TIME 11.2 Seconds (9.9-11.8)
--- NOTE | 2017-03-26 09:22 | CT ---
PROCEDURE: CT Abdomen and Pelvis without intravenous contrast HISTORY: N/V COMPARISON: 12/26/2016 TECHNIQUE: Without contrast.. Contrast Dose: 0 Radiation dose: Total exam DLP = 492.22 mGy-cm. This CT exam was performed using one or more of the following dose reduction techniques: Automated exposure control, adjustment of the mA and/or kV according to patient size, and/or use of iterative reconstruction technique. FINDINGS: LOWER THORAX: Left lower lobe patchy consolidation. Possible pneumonia. Small left pleural effusion. LIVER: 1.7 cm rounded hyperdensity in the posterior right hepatic lobe, unchanged from prior examination. Nonspecific. Consider correlation with ultrasound. Punctate calcification in left hepatic lobe, likely granulomatous. No biliary ductal dilatation. Normal size and contour. GALLBLADDER AND BILE DUCTS: Unremarkable. PANCREAS: No pancreatic mass. Probable duodenal diverticulum within pancreatic head as on prior CT examination. Collection of fluid and gas in pancreatic at the level of the ampulla. SPLEEN: Unremarkable. ADRENALS: Unremarkable. No mass. KIDNEYS AND URETERS: Resolution of prior right hydronephrosis. Irregularity of contour upper pole right kidney. Possible pedunculated mass/ cyst. Recommend correlation with ultrasound examination. This was not appreciated on prior examination with massive hydronephrosis. No left renal mass. No renal calculus. VASCULATURE: Probable chronic abdominal aortic dissection of indeterminate age. Displaced calcified intima. No evidence of abdominal aortic aneurysm. No change from prior CT examination. BOWEL: Once again, suspicious for soft tissue density within gastric lumen, measuring up to 4.1 cm. Correlation with endoscopy is suggested. No abnormal bowel loops. No bowel obstruction. Mild retained fecal matter. APPENDIX: Unremarkable. Normal appendix. PERITONEUM: Unremarkable. No free fluid. No free air. LYMPH NODES: Unremarkable. No enlarged lymph nodes. BLADDER: Bladder wall thickened. Bladder poorly distended. Gas and fluid seen within urinary bladder. Flores catheter balloon noted. Concerning for cystitis versus chronic outlet obstruction. As on prior examination, there is asymmetric soft tissue density at the bladder base up to 2.6 cm in diameter. Suspicious for bladder neoplasm. Correlation with cystoscopy is advised. REPRODUCTIVE: Enlarged prostate. BONES: No acute fracture. OTHER FINDINGS: None. IMPRESSION: Patchy consolidation in left lower lobe. Rule out pneumonia. Small left pleural effusion. Irregular contour upper pole right kidney. Possible pedunculated mass/cyst. Recommend correlation with ultrasound examination. Probable chronic abdominal aortic dissection, unchanged from prior CT. Possible intraluminal gastric mass. Recommend correlation with endoscopy. This was noted on prior CT examination of 12/26/2016 as well. Thickened bladder wall, diffusely. Possible cystitis versus chronic outlet obstruction. Possible intraluminal soft tissue density. Rule out neoplasm. Recommend correlation with cystoscopy. Preliminary interpretation of this examination was reported by [employer] at 12:41 a.m. on 03/26/2017. There is discordance of this report with the preliminary interpretation. Suspected gastric luminal mass, possible bladder lumen mass, bladder wall thickening not described in the preliminary report of this examination.
--- NOTE | 2017-03-26 09:34 | CP.PCM.HP ---
History of Present Illness - History of Present Illness History of Present Illness: Patient is an 86 year old male PMH significant for CVA and BPH who presented to [place] [facility] 03[place]25[place]17 with complaints of dypsnea. History was mainly provided by patient's son since patient was unable to communicate well at the time. According to patient's son, the patient asked to come to the hospital because he was having trouble breathing. The son also mentioned that on Tuesday the patient had experienced a few bouts of black emesis, which continued on and Tuesday. Patient's son also makes mention of a chronic hiccup his father has been experiencing over the past 4 weeks. When asking the patient questions, he admitted to having problems swallowing, stating that sometimes it is painful to swallow. Patient denies chest pain, current shortness of breath, headache, nausea. FH: non contributory SH: no tobacco usage in the past 20 years Present on Admission - Present on Admission Any Indicators Present on Admission: No Review of Systems - Constitutional Constitutional: As Per HPI Additional comments: Limited ROS due to inability of patient to talk - EENT Eyes: absent: Change in Vision, Pain - Respiratory Respiratory: absent: Dyspnea, Wheezing - Gastrointestinal Gastrointestinal: Abdominal Pain. absent: Change in Bowel Habits (denies melena ) Past Patient History - Infectious Disease Hx of Infectious Diseases: None - Past Social History Smoking Status: Former Smoker - CARDIAC Hx Cardiac Disorders: Yes (aortic stenosis, abd aortic dissection) - PULMONARY Hx Respiratory Disorders: Yes Hx Pneumonia: Yes (aspiration pneumonia) - NEUROLOGICAL Hx Neurological Disorder: Yes HX Cerebrovascular Accident: Yes Hx Dementia: Yes - HEENT Hx HEENT Problems: Yes Hx Deafness: Yes Hx Macular Degeneration: Yes - RENAL Hx Chronic Kidney Disease: No - ENDOCRINE/METABOLIC Hx Endocrine Disorders: No - HEMATOLOGICAL/ONCOLOGICAL Hx Blood Disorders: No - INTEGUMENTARY Hx Dermatological Problems: Yes (sacral ulcer) - MUSCULOSKELETAL/RHEUMATOLOGICAL Hx Musculoskeletal Disorders: No Hx Falls: Yes - GASTROINTESTINAL Hx Gastrointestinal Disorders: Yes (gastritis, diverticulosis, GI bld) Hx Gastroesophageal Reflux: Yes HX Swallowing Problems: Yes - GENITOURINARY/GYNECOLOGICAL Hx Genitourinary Disorders: Yes (urinary retention w/ chronic montalvo, hiatal hernia) Hx Prostate Problems: Yes Hx Urinary Tract Infection: Yes - PSYCHIATRIC Hx Psychophysiologic Disorder: No Hx Substance Use: No - SURGICAL HISTORY Hx Surgeries: No - ANESTHESIA Hx Anesthesia: Yes Hx Anesthesia Reactions: No Hx Malignant Hyperthermia: No Meds Allergies/Adverse Reactions: Allergies Allergy/AdvReac Type Severity Reaction Status Date / Time No Known Allergies Allergy Verified 03/25/17 21:15 Physical Exam - Constitutional Appears: Well - Head Exam Head Exam: ATRAUMATIC, NORMAL INSPECTION, NORMOCEPHALIC - Eye Exam Eye Exam: EOMI, Normal appearance - ENT Exam ENT Exam: Mucous Membranes Moist - Respiratory Exam Respiratory Exam: Clear to Auscultation Bilateral, NORMAL BREATHING PATTERN - Cardiovascular Exam Cardiovascular Exam: REGULAR RHYTHM, +S1, +S2 - GI/Abdominal Exam GI & Abdominal Exam: Normal Bowel Sounds, Soft - Neurological Exam Neurological exam: Alert, CN II-XII Intact, Oriented x3 - Skin Skin Exam: Normal Color, Warm Results - Vital Signs Recent Vital Signs: Last Vital Signs Temp 98.0 F 03/26/17 06:29 Pulse 74 03/26/17 06:29 Resp 20 03/26/17 06:29 BP 136/67 03/26/17 06:29 Pulse Ox 97 03/26/17 06:29 - Labs Result Diagrams: 03/26/17 07:12 03/26/17 07:12 Labs: Laboratory Results - last 24 hr 03/26/17 03/26/17 03/26/17 07:12 07:12 07:12 WBC 7.9 RBC 3.21 L Hgb 9.9 L Hct 30.1 L MCV 93.8 MCH 30.8 MCHC 32.9 RDW 14.1 Plt Count 212 MPV 9.0 Gran % 68.2 H Lymph % (Auto) 20.4 L Leake % (Auto) 8.4 H Eos % (Auto) 2.2 Baso % (Auto) 0.8 Gran # 5.39 Lymph # 1.6 Leake # 0.7 H Eos # 0.2 Baso # 0.06 PT 11.2 INR 1.04 Sodium 140 Potassium 3.8 Chloride 105 Carbon Dioxide 27 Anion Gap 12 BUN 25 H Creatinine 1.2 Est GFR ( Amer) > 60 Est GFR (Non-Af Amer) 57 Random Glucose 101 Calcium 8.7 Total Bilirubin 0.5 AST 29 ALT 30 Alkaline Phosphatase 82 Total Protein 6.5 Albumin 3.3 Globulin 3.1 Albumin/Globulin Ratio 1.1 Assessment & Plan - Assessment and Plan (Free Text) Assessment: 86 year old male pmh CVA presents to [facility] on 03/25/17 with complaints of dypsnea and dysphagia. Plan: UTI - Leukocyte esterase positive - Cefepime 1 gm in NS Dysphagia/Blood emesis - NPO - Aspiration precautions - GI consulted, awaiting their recommendations - Swallow Study; results pending - CT abdomen and pelvis; results pending DVT/GI prophylaxis- Protonix 40 mg IVP q 12 h and daily knee SCDs
[2017-03-26 09:45] LABS: % IRON SATURATION 11 % (20-55); IRON 28 ug/dL (45-180); TOTAL IRON BINDING CAPACITY 252 ug/dL (261-462)
--- NOTE | 2017-03-26 15:18 | CON ---
DATE: 03/26/2017 LOCATION: The patient is in bed and seen earlier in room 277, bed 2. CHIEF COMPLAINT: Weakness from several days. HISTORY OF PRESENT ILLNESS: This is an 86-year-old male with history of multilobar community-acquired pneumonia 3 months ago, history of cerebrovascular accident, history of cataracts, urinary tract infection, prostate disease, coronary artery disease and deaf, who was admitted with a diagnosis of GI bleed and intractable hiccups, and the patient wishes consultation, request is for antibiotics. REVIEW OF SYSTEMS: Reveals the patient is a poor historian and there has been no fever and chills reported. No abdominal pain reported. No dysuria or frequency. No headaches or blurred vision. PAST MEDICAL HISTORY: Significant for cerebrovascular accident, cataracts, urinary tract infection, prostate disease, coronary artery disease and deafness. PAST SURGICAL HISTORY: Noncontributory. ALLERGIES: The patient has no known allergies. MEDICATIONS: Reveals the patient in home with Protonix, *------*, and Flomax. PHYSICAL EXAMINATION: GENERAL: The patient is in bed, in acute distress. VITAL SIGNS: Appears to be comfortable with a temperature of 98, blood pressure is 158/80, respiratory rate of 20, heart rate of 81. HEENT: Unremarkable. NECK: Supple. LUNGS: Decreased breath sounds, more on the left side. HEART: Normal S1 and S2. ABDOMEN: Soft and nontender. No rebound or guarding. LABORATORY DATA: Reveals a white count of 8.6, hemoglobin of 11 and platelets of 250, 78% granulocytosis and coagulation is noted. BUN of 29, creatinine of 1.4 and CK is 23. The urinalysis reveals the patient has too numerous to count of wbc's and many bacteria. Microbiology is pending. The patient had a CAT scan of the abdomen and pelvis, which is noted and had cystitis is present and there is also noted *------* left lower lobe pneumonia and there is urinary bladder thickened. History and physical examination by Dr. Peng Bowers is reviewed. ASSESSMENT AND PLAN: This is an 86-year-old male with multilobar community-acquired pneumonia 3 months ago, with cerebrovascular accident and cataract, prostate disease, coronary artery disease, urinary tract infection and cystitis and with left healthcare-associated pneumonia, possible gram-positive cocci, possible gram-negative cristina. We will order blood cultures, urine cultures and we will also order a sputum cultures, procalcitonin and we will start Maxipime and doxycycline. Pending thomas culture results and we will make further recommendation upon available of initial results. Frank Chaidez MD
--- NOTE | 2017-03-26 20:45 | CARD ---
APPROVED REPORT EKG Measurement Heart [id number] <Conclusion> Sinus rhythm with premature atrial complexes Otherwise normal ECG
[2017-03-26] MEDS: Cefepime 1gm in NS 100ml 1 GM/100 ML BAG IVPB SCH (21:33)
--- NOTE | 2017-03-26 22:16 | HP ---
ADDENDUM TO THE HISTORY AND PHYSICAL I saw him at bed this morning in 277 with his son. He is not talking, they have complaints of swallowing issues. After review the CAT scan, and the lab test, he is having dysphagia, hiccups, sever UTI, renal insufficiency, low iron, there is a questionable gastric mass and probable infection. I am going to get him a bedside commode and consult pulmonary for possible pneumonia. Trista for the hiccups and Dr. Maldonado for urological evaluation. Answered many, many questions from the family, discussed at length. Hopefully, he will improve with treatment of the IV antibiotics and IV fluids. Peng Bowers DO
[2017-03-27] MEDS: Sodium Chloride 0.9% 1,000 ML IV SCH (01:54)
[2017-03-27 08:16] LABS: BASO # 0.14 K/mm3 (0.0-2.0); BASO % 2.2 % (0.0-3.0); EOS # 0.2 (0.0-0.7); EOS % 2.4 % (1.5-5.0); GRAN # 4.39 (1.4-6.5); GRAN % 69.3 % (50.0-68.0); HEMOGLOBIN 10.6 gm/dL (14.0-18.0); LYMPH # 1.2 (1.2-3.4); LYMPH % 19.2 % (22.0-35.0); MEAN CELL VOLUME 93.8 fL (80.0-105.0); MEAN CORPUSCULAR HEMOGLOBIN 31.3 pg (25.0-35.0); MEAN CORPUSCULAR HGB CONC 33.3 g/dl (31.0-37.0); MEAN PLATELET VOLUME 8.9 fl (7.0-11.0); MONO # 0.4 (0.1-0.6); MONO % 6.9 % (1.0-6.0); PLATELET COUNT 224 10^3/uL (120.0-450.0); RBC 3.39 10^6/uL (3.5-6.1); RED CELL DISTRIBUTION WIDTH 14.1 % (11.5-14.5); WHITE BLOOD COUNT 6.3 10^3/ul (4.5-11.0)
[2017-03-27 08:22] LABS: INR 1.07 (0.93-1.08); PROTHROMBIN TIME 11.6 Seconds (9.9-11.8)
[2017-03-27 08:28] LABS: ALB/GLOB RATIO 1.1 (1.1-1.8); ALBUMIN 3.3 g/dL (3.0-4.8); ALT/SGPT 30 U/L (7-56); AST/SGOT 29 U/L (15-59); BLOOD UREA NITROGEN 15 mg/dL (7-21); CALCIUM 8.5 mg/dL (8.4-10.5); GFR AFRICAN-AMERICAN > 60; GFR NON-AFRICAN AMERICAN > 60
[2017-03-27] MEDS ORDERED: Sodium Chloride 0.9% 1,000 ML IV SCH (09:12)
[2017-03-27] MEDS ORDERED: Pantoprazole 40 mg EC Tab PO SCH (10:00)
[2017-03-27] MEDS: Cefepime 1gm in NS 100ml 1 GM/100 ML BAG IVPB SCH ×2 (10:05→21:54)
--- NOTE | 2017-03-27 11:09 | CP.PCM.PN ---
Subjective - Date & Time of Evaluation Date of Evaluation: 03/27/17 Time of Evaluation: 11:03 - Subjective Subjective: Patient seen and examined. No acute events overnight, resting in bed comfortably, patient son present at bedside. He denies abdominal pain, nausea, vomiting, fever/chills. Tolerating PO liquids without difficulty. He had two large brown soft bowel movements yesterday without presence of rectal bleeding or melena. Review of vitals from today are normal. O2 saturation 97% on room air. 12 point review of systems performed, negative aside from mentioned above. Objective - Vital Signs/Intake and Output Vital Signs (last 24 hours): Temp Pulse Resp BP Pulse Ox 97.3 F L 88 20 134/70 97 03/27/17 06:00 03/27/17 06:00 03/27/17 06:00 03/27/17 06:00 03/27/17 06:00 Intake and Output: 03/27/17 03/27/17 06:59 18:59 Intake Total 2300 Output Total 3000 Balance 2300 -3000 - Medications Medications: Current Medications Chlorpromazine (Thorazine) 25 mg PO BID PRN; Protocol PRN Reason: Hiccups Last Admin: 03/27/17 10:03 Dose: 25 mg Doxycycline Hyclate (Doryx) 100 mg PO Q12 JOSE ARMANDO PRN Reason: Protocol Stop: 04/04/17 22:01 Last Admin: 03/27/17 09:59 Dose: 100 mg Cefepime HCl (Maxipime 1gm) 1 gm in 100 mls @ 100 mls/hr IVPB Q12 JOSE ARMANDO PRN Reason: Protocol Stop: 04/04/17 22:01 Last Admin: 03/27/17 10:05 Dose: 100 mls/hr Sodium Chloride (Sodium Chloride 0.9%) 1,000 mls @ 50 mls/hr IV .Q20H JOSE ARMANDO Last Admin: 03/27/17 10:08 Dose: 50 mls/hr Pantoprazole Sodium (Protonix Inj) 40 mg IVP Q12 JOSE ARMANDO Last Admin: 03/27/17 10:00 Dose: 40 mg Tamsulosin HCl (Flomax) 0.4 mg PO DAILY JOSE ARMANDO Last Admin: 03/27/17 09:59 Dose: 0.4 mg - Labs Labs: 03/27/17 08:07 03/27/17 08:07 PT 11.6 Seconds (9.9-11.8) 03/27/17 08:07 INR 1.07 (0.93-1.08) 03/27/17 08:07 APTT 34.0 Seconds (23.7-30.8) H 03/25/17 22:09 - Constitutional Appears: Non-toxic, No Acute Distress - Head Exam Head Exam: NORMAL INSPECTION - Eye Exam Eye Exam: EOMI, Normal appearance - ENT Exam ENT Exam: Mucous Membranes Moist - Respiratory Exam Respiratory Exam: Clear to Ausculation Bilateral - Cardiovascular Exam Cardiovascular Exam: REGULAR RHYTHM, +S1, +S2 - GI/Abdominal Exam GI & Abdominal Exam: Soft, Normal Bowel Sounds Additional comments: non tender to palpation in four quadrants - Extremities Exam Extremities Exam: Normal Inspection - Skin Skin Exam: Dry, Intact, Normal Color, Warm Assessment and Plan - Assessment and Plan (Free Text) Assessment: HTN Chronic constipation BPH with indwelling montalvo Vomiting - resolved Iron deficiency anemia Pneumonia Plan: - H/H stable, continue to monitor, patient has not required PRBC transfusion and no overt bleeding noted - Liquid diet as tolerated - Continue with antibiotic therapy as per ID, awaiting blood culture results - Continue with PPI therapy - Given presence of iron deficiency anemia with recurrent admissions for abdominal pain/vomiting, therefore suggest EGD tomorrow. Patient's son to discuss with family members regarding decision to proceed with endoscopic evaluation. Will continue to monitor patient clinical course, NPO after midnight.
--- NOTE | 2017-03-27 12:07 | PN ---
SUBJECTIVE: I saw him resting comfortably in bed. He is very alert today. He spoke to me today. He did not have his hearing aids in, but he was stronger and face look strong. He was also eating this morning. He is not at 100%, but he is definitely better than yesterday when he was very . PHYSICAL EXAMINATION VITAL SIGNS: He has temperature of 97.3, pulse of 88, blood pressure of 134/70, respiratory rate of 20, and O2 saturation of 97%on room air. HEENT: His head is atraumatic and normocephalic. His eyes are more awake. He is looking at me. He is appropriate. Throat is moist. NECK: Supple. CARDIOPULMONARY: Heart is regular rate. LUNGS: Decreased breath sounds. Mild congestion, but better than the day before. ABDOMEN: Soft and nontender. Positive bowel sounds. EXTREMITIES: No edema. LABORATORY DATA: He has white count of 6.3, hemoglobin of 10.6, and hematocrit of 31.8 with platelets of 224. INR is 1.07. Sodium is 142, potassium is 3.7, BUN is 15, and creatinine is 1.1. GFR is greater than 60, calcium is 8.5, total bilirubin is 0.5, AST is 29, ALT is 30, alkaline phosphatase is 75, and total protein is 6.4. Urine was large, leukocytes and many bacteria. MEDICATIONS: He is currently on Doryx, Flomax, Maxipime IV, Protonix IV, sodium chloride IV at 100, I will decrease that to 60, and Thorazine for hiccups, his hiccups are now gone which is great. ASSESSMENT AND PLAN: He has been seen by infectious disease, who has him on intravenous antibiotics, who is also being seen by the perinatal specialist, I spoke to him this morning. They feel that he has a multilobar community acquired pneumonia, cerebrovascular accident, cataract history, and urinary tract infection with cystitis. He is going to need to get out of bed to chair and physical therapy. Continue with IV antibiotics. Hopefully, he will continue to improve. We will check his labs tomorrow. Peng Bowers DO [facility] # [id number]
--- NOTE | 2017-03-27 14:54 | CON ---
DATE: 03/27/2017 We were asked by Dr. Bowers, genetic scientist to evaluate and treat this 86-year-old man who was admitted by emergency room with chief complaint of weakness for several days, poor intake, poor appetite. HISTORY OF PRESENT ILLNESS: The patient has a history of community-acquired pneumonia with admission 3 months ago. He has a history cerebrovascular accident, current history of dementia, recurrent urinary tract infection, coronary artery disease and poor hearing. ALLERGIES: NO KNOWN ALLERGIES. SOCIAL HISTORY: Nonsmoker. Nondrinker. Never used illicit drugs. FAMILY HISTORY: CAD, HTN REVIEW OF SYSTEMS: Review of systems was conducted by reviewing all sources. The patient has a history of multilobar pneumonia recently. NEUROLOGIC: History of cerebrovascular accident and dementia. CARDIOVASCULAR: No current history of chest pain or congestive heart failure. The rest of the systems were reviewed and formed to be negative. MEDICATIONS AT HOME: Reveals Protonix and Flomax. PHYSICAL EXAMINATION VITAL SIGNS: Temperature is 98, blood pressure is 150/80, respirations 20, and heart rate is 81. HEAD, EARS, NOSE, AND THROAT: Unremarkable. NECK: Supple. LUNGS: Diminished breath sound at both bases. No rhonchi or wheezing. CARDIOVASCULAR: S1 and S2, no S3. GASTROINTESTINAL: Soft , nontender. No organomegaly. EXTREMITIES: No pedal edema. SKIN: Dry; intact. LABORATORY DATA: WBC is 8.6, hemoglobin of 11, platelet count of 250,000. Creatinine 1.4. Urinalysis, many WBCs and bacteria. The patient had CT scan of abdomen and pelvis revealing left lower lobe pneumonia. ASSESSMENT: 1. Left lower lobe infiltrate, pneumonia whether community acquired or aspiration cannot be ruled out in this patient who has dementia, status post cerebrovascular accident. 2. Urinary tract infection. 3. Cerebrovascular accident. 4. Dementia. PLAN: The patient will be started on antibiotics. He was seen by infectious disease windows consultant, Dr. Chaidez, who will order Maxipime and doxycycline. Also ordered procalcitonin to find out whether infection is current or the left lower lobe infiltrate is residual from a previous multifocal pneumonia. I discussed this at length with his genetic scientist, Dr. Bowers. Disposition will be pending. The results of the test were mentioned above. Collin Sullivan MD [facility] # [id number] MTDRosie
--- NOTE | 2017-03-27 15:25 | PN ---
DATE: 03/27/2017 SUBJECTIVE: The patient is seen in bed, in no acute distress. Patient's son is at the bedside who is involved in his father's care. PHYSICAL EXAMINATION: VITAL SIGNS: Temperature is 97, blood pressure is 130/70, respiratory rate of 16. HEENT: Examination of HEENT is unremarkable. NECK: Supple. LUNGS: Decreased breath sounds. HEART: Normal S1 and S2. ABDOMEN: Soft and nontender. LABORATORY DATA: Reveals a white count of 6.3, hemoglobin of 10, platelets of 224. Coagulation is noted. Chemistry reveals a BUN of 15, creatinine of 1.1. Procalcitonin 0.06. Urinalysis is noted, no wbc is noted. Microbiology reveals the sacral culture is pending and review of orders reveals the patient to be on p.o. doxycycline and cefepime. Of note, the patient's procalcitonin is 0.06. ASSESSMENT AND PLAN: This is an 86-year-old male with history of multilobar community-acquired pneumonia 3 months ago, history of cerebrovascular accident, history of cataracts, urinary tract infection, prostate disease, coronary artery disease, who is deaf and admitted with gastrointestinal bleed, intractable hiccups and currently with left-sided healthcare-associated pneumonia most likely not bacterial since the procalcitonin is normal in addition with the urinary tract infection and a decubitus ulcer currently on Maxipime and doxycycline day #2. We will check on the wound culture from the sacral ulcer. We will check on the urine culture and we will give a short course of antibiotics. Case discussed at length with the patient's son who is reviewing the risks and benefits of further therapy and testing. Frank Chaidez MD
--- NOTE | 2017-03-27 21:53 | CON ---
DATE: 03/27/2017 GENITOURINARY CONSULTATION CHIEF COMPLAINT: Chronic retention. HISTORY OF PRESENT ILLNESS: This is an 86-year-old man with chronic indwelling Flores change by visiting nurses monthly. The Flores was changed on 2 days prior, the urine is clear. The patient was admitted for intractable hiccups and was found to have left lower lobe pneumonia. According to the son who is at bedside, the patient was treated for several UTIs recently, but he had no known fevers or complaints. The patient is currently on antibiotics for pneumonia. The urine is draining fine without any leakage. The hiccups have been present for the past 4 weeks. The patient has had some dysphagia. PAST MEDICAL HISTORY: Significant for history of aortic stenosis and abdominal aortic dissection. He is no longer a smoker. He is extremely hard of hearing. He has had a prior CVA and also mild dementia. He also has macular degeneration. FAMILY HISTORY: Noncontributory. REVIEW OF SYSTEMS: Currently no symptoms referable to the head, eyes, ears, nose or throat. No cardiac or respiratory symptoms. He is having intractable hiccups. No nausea or vomiting. No symptoms referable to his skin. PHYSICAL EXAMINATION VITAL SIGNS: Afebrile, pulse 85, blood pressure 128/79, respirations 18. GENERAL: He is extremely hard of hearing almost deaf. ABDOMEN: Soft, no gastric dilatation is palpable. No rebound. No guarding. No flank pain is palpable. No suprapubic fullness. GENITALIA: Penis, testicle cord and epididymis all normal. SKIN: No peripheral edema. I took the disk holding the Flores catheter, which was having a traction effect on the penis, removed it and repositioned to laid back with straps which were *------*. LABORATORY DATA: The patient's white count is 6300 with a hemoglobin of 10.6. His chemistry show a creatinine of 1.1. His urine culture has gram-positive cocci. There is no ID present. He currently is on Maxipime and doxycycline. He is on Flomax, which can be discontinued. Since he has chronic indwelling Flores, there is no reason for him to be on Flomax. His CT of the abdomen and pelvis which was done as there is possible cyst in the upper pole of right kidney. The previous hydronephrosis has resolved since the Flores catheter is in place. There was a question of suspicion of a soft tissue density in the gastric lumen, endoscopy was suggested. He also has a left lower lobe pneumonia and a left pleural effusion. Given his age, I would not be aggressive in any urologic interpretation. The etiology of the intractable hiccups should be investigated, whether it is related to the gastric mass, pneumonia or his dysphagia can be investigated. I will order a renal ultrasound but I am not sure anything more be done regardless. Luciano Maldonado MD
[2017-03-28 00:53] VITALS: O2SAT 98
[2017-03-28 05:55] VITALS: TEMP 97.4
[2017-03-28 07:51] LABS: BASO # 0.11 K/mm3 (0.0-2.0); BASO % 1.6 % (0.0-3.0); EOS # 0.2 (0.0-0.7); EOS % 3.1 % (1.5-5.0); GRAN # 4.49 (1.4-6.5); GRAN % 64.3 % (50.0-68.0); HEMOGLOBIN 11.3 gm/dL (14.0-18.0); LYMPH # 1.7 (1.2-3.4); MEAN CELL VOLUME 92.9 fL (80.0-105.0); MEAN CORPUSCULAR HGB CONC 33.4 g/dl (31.0-37.0); MEAN PLATELET VOLUME 8.9 fl (7.0-11.0); MONO # 0.5 (0.1-0.6); PLATELET COUNT 308 10^3/uL (120.0-450.0); RBC 3.64 10^6/uL (3.5-6.1); RED CELL DISTRIBUTION WIDTH 13.7 % (11.5-14.5)
[2017-03-28 07:59] LABS: INR 1.07 (0.93-1.08); PROTHROMBIN TIME 11.6 Seconds (9.9-11.8)
[2017-03-28 08:09] LABS: ALB/GLOB RATIO 1.2 (1.1-1.8); ALBUMIN 3.8 g/dL (3.0-4.8); ALT/SGPT 32 U/L (7-56); AST/SGOT 27 U/L (15-59); BLOOD UREA NITROGEN 13 mg/dL (7-21); CALCIUM 9.2 mg/dL (8.4-10.5); GFR AFRICAN-AMERICAN > 60; GFR NON-AFRICAN AMERICAN 57
--- NOTE | 2017-03-28 08:16 | CP.PCM.PN ---
<Dharmesh Calderon - Last Filed: 03/28/17 10:02> Subjective - Date & Time of Evaluation Date of Evaluation: 03/28/17 Time of Evaluation: 08:00 - Subjective Subjective: PGY4 GI Fellow; Follow-up Pt seen and examined bedside Could not communicate fully due to pt being hearing impaired and no hearing aid According to RN overnight, no acute events Pt was NPO over night Family left instruction of no EGD, only conservative management According to staff, no melena, hematemesis, or BRBPR unsure of BM ROS: could not obtain Objective - Vital Signs/Intake and Output Vital Signs (last 24 hours): Temp Pulse Resp BP Pulse Ox 97.4 F L 98 H 18 99/59 L 98 03/28/17 05:51 03/28/17 05:51 03/28/17 05:51 03/28/17 05:51 03/28/17 05:51 Intake and Output: 03/28/17 03/28/17 06:59 18:59 Intake Total 800 Output Total 1600 Balance -800 - Medications Medications: Current Medications Chlorpromazine (Thorazine) 25 mg PO BID PRN; Protocol PRN Reason: Hiccups Last Admin: 03/27/17 10:03 Dose: 25 mg Collagenase (Santyl) 1 gm TOP DAILY JOSE ARMANDO Doxycycline Hyclate (Doryx) 100 mg PO Q12 JOSE ARMANDO PRN Reason: Protocol Stop: 04/04/17 22:01 Last Admin: 03/27/17 21:53 Dose: 100 mg Cefepime HCl (Maxipime 1gm) 1 gm in 100 mls @ 100 mls/hr IVPB Q12 JOSE ARMANDO PRN Reason: Protocol Stop: 04/04/17 22:01 Last Admin: 03/27/17 21:54 Dose: 100 mls/hr Sodium Chloride (Sodium Chloride 0.9%) 1,000 mls @ 50 mls/hr IV .Q20H JOSE ARMANDO Last Admin: 03/27/17 10:08 Dose: 50 mls/hr Pantoprazole Sodium (Protonix Inj) 40 mg IVP Q12 JOSE ARMANDO Last Admin: 03/27/17 21:55 Dose: 40 mg Tamsulosin HCl (Flomax) 0.4 mg PO DAILY JOSE ARMANDO Last Admin: 03/27/17 09:59 Dose: 0.4 mg - Labs Labs: 03/28/17 07:30 03/27/17 08:07 PT 11.6 Seconds (9.9-11.8) 03/28/17 07:30 INR 1.07 (0.93-1.08) 03/28/17 07:30 APTT 34.0 Seconds (23.7-30.8) H 03/25/17 22:09 - Constitutional Appears: Non-toxic, No Acute Distress - Head Exam Head Exam: ATRAUMATIC, NORMOCEPHALIC - Eye Exam Eye Exam: Normal appearance - ENT Exam ENT Exam: Mucous Membranes Moist, Normal Exam - Respiratory Exam Respiratory Exam: Clear to Ausculation Bilateral, NORMAL BREATHING PATTERN. absent: Rales, Rhonchi, Wheezes - Cardiovascular Exam Cardiovascular Exam: REGULAR RHYTHM, +S1, +S2 - GI/Abdominal Exam GI & Abdominal Exam: Soft, Normal Bowel Sounds. absent: Guarding, Rigid, Tenderness - Extremities Exam Extremities Exam: Full ROM, Normal Inspection - Neurological Exam Neurological Exam: Alert, Awake, Oriented x3 - Skin Skin Exam: Dry, Intact, Normal Color, Warm Assessment and Plan - Assessment and Plan (Free Text) Assessment: Juan David Chisholm is a 86M w/ hx of HTN, chronic constipation who presented to the ED w/ emesis and concern for upper GI bleed. Pt has had an uneventful hospital course and has no overt sign of bleeding. Pt family has refused endoscopy and want conservative management. Hgb has been stable. HTN Chronic constipation BPH with indwelling montalvo Vomiting - resolved Iron deficiency anemia Pneumonia Plan: - H/H stable, continue to monitor - advanced diet - Continue with antibiotic therapy as per ID - Continue with PPI therapy - Given presence of iron deficiency anemia with recurrent admissions for abdominal pain/vomiting, therefore recommended EGD. Patient's family refused. Will recommend outpt endoscopy if more aggressive w/u is wanted by family. For now, h/h is stable. D/W Dr. Miller <Tano Miller - Last Filed: 03/28/17 11:16> Objective - Vital Signs/Intake and Output Vital Signs (last 24 hours): Temp Pulse Resp BP Pulse Ox 97.4 F L 98 H 18 99/59 L 98 03/28/17 05:51 03/28/17 05:51 03/28/17 05:51 03/28/17 05:51 03/28/17 05:51 Intake and Output: 03/28/17 03/28/17 06:59 18:59 Intake Total 800 Output Total 1600 Balance -800 - Medications Medications: Current Medications Chlorpromazine (Thorazine) 25 mg PO BID PRN; Protocol PRN Reason: Hiccups Last Admin: 03/27/17 10:03 Dose: 25 mg Collagenase (Santyl) 1 gm TOP DAILY JOSE ARMANDO Last Admin: 03/28/17 09:54 Dose: 1 appl Doxycycline Hyclate (Doryx) 100 mg PO Q12 JOSE ARMANDO PRN Reason: Protocol Stop: 04/04/17 22:01 Last Admin: 03/28/17 09:53 Dose: 100 mg Cefepime HCl (Maxipime 1gm) 1 gm in 100 mls @ 100 mls/hr IVPB Q12 JOSE ARMANDO PRN Reason: Protocol Stop: 04/04/17 22:01 Last Admin: 03/28/17 09:53 Dose: 100 mls/hr Sodium Chloride (Sodium Chloride 0.9%) 1,000 mls @ 50 mls/hr IV .Q20H JOSE ARMANDO Last Admin: 03/27/17 10:08 Dose: 50 mls/hr Vancomycin HCl (Vancomycin 1gm) 1 gm in 250 mls @ 167 mls/hr IVPB Q12H JOSE ARMANDO PRN Reason: Protocol Pantoprazole Sodium (Protonix Inj) 40 mg IVP Q12 JOSE ARMANDO Last Admin: 03/28/17 09:53 Dose: 40 mg - Labs Labs: 03/28/17 07:30 03/28/17 07:30 PT 11.6 Seconds (9.9-11.8) 03/28/17 07:30 INR 1.07 (0.93-1.08) 03/28/17 07:30 APTT 34.0 Seconds (23.7-30.8) H 03/25/17 22:09 Attending/Attestation - Attestation I have personally seen and examined this patient.: Yes I have fully participated in the care of the patient.: Yes I have reviewed all pertinent clinical information, including history, physical exam and plan: Yes Notes (Text): 03/28/17 11:13 I have seen and examined patient with GI fellow. No acute events overnight, he is seen sitting in chair eating breakfast, appears quite comfortable. He denies abdominal pain, nausea, vomiting, diarrhea, fever/chills. HTN Chronic constipation Abdominal pain, vomiting - resolved Iron deficiency anemia Pneumonia - Advance diet as tolerated - H/H stable, has not required PRBC transfusion, continue to monitor - Continue with antibiotic therapy as per ID - Continue with PPI therapy - It was recommended that patient undergo EGD for further evaluation of abdominal pain and vomiting causing recurrent hospital admissions, however patient's family refuses test after discussing risks/benefits of procedure with them. His symptoms have clinically resolved and he would benefit from additional outpatient follow up. From GI standpoint ok to discharge home with subsequent follow up. Will sign off case, please reconsult as necessary, thank you. Discussed with Dr. Bowers.
--- NOTE | 2017-03-28 09:32 | PN ---
PULMONARY NOTE DATE: 03/28/2017 SUBJECTIVE: The patient appears comfortable this morning. He is not short of breath at rest. PHYSICAL EXAMINATION: VITAL SIGNS: Temperature 97.4, pulse 98, respirations 18, blood pressure 99/59, and oxygen saturation on nasal cannula is 98%. HEENT: Normocephalic and atraumatic. NECK: No JVD. CARDIOVASCULAR: Positive S1 and S2. No S3. LUNGS: Decreased breath sound at the bases. No rhonchi. No wheezing. EXTREMITIES: No clubbing, cyanosis, or edema. Calf is nontender to palpation. GASTROINTESTINAL: Abdomen is soft, nontender, and nondistended. Bowel sounds are positive. SKIN: No acute rashes. NEUROLOGIC: Limited at the present time. IMPRESSION: 1. Rule out pneumonia - left lower lobe. 2. Urinary tract infection. 3. Cerebrovascular accident. 4. Dementia. PLAN: The patient appears comfortable this morning. He is not short of breath at rest. Oxygen saturation on nasal cannula is 98%. Repeat a.m. labs are pending. I would continue the antibiotic therapy - as per infectious disease. Input by Dr. Chaidez is noted. I will also continue the aspiration precautions. Clinical status of the patient is certainly improved - compared to the initial status. I will discuss the above with the attending physician. Fernando Weathers MD MTDD
[2017-03-28] MEDS: Cefepime 1gm in NS 100ml 1 GM/100 ML BAG IVPB SCH (09:53)
[2017-03-28] MEDS ORDERED: Collagenase 250 Units/gm Ointment(30 gm) TOP SCH (10:00)
--- NOTE | 2017-03-28 11:12 | CP.PCM.PN ---
Subjective - Date & Time of Evaluation Date of Evaluation: 03/28/17 Time of Evaluation: 10:25 - Subjective Subjective: Comfortable on a chair, not in distress, afebrile. Objective - Vital Signs/Intake and Output Vital Signs (last 24 hours): Temp Pulse Resp BP Pulse Ox 97.4 F L 98 H 18 99/59 L 98 03/28/17 05:51 03/28/17 05:51 03/28/17 05:51 03/28/17 05:51 03/28/17 05:51 Intake and Output: 03/28/17 03/28/17 06:59 18:59 Intake Total 800 Output Total 1600 Balance -800 - Medications Medications: Current Medications Chlorpromazine (Thorazine) 25 mg PO BID PRN; Protocol PRN Reason: Hiccups Last Admin: 03/27/17 10:03 Dose: 25 mg Collagenase (Santyl) 1 gm TOP DAILY JOSE ARMANDO Doxycycline Hyclate (Doryx) 100 mg PO Q12 JOSE ARMANDO PRN Reason: Protocol Stop: 04/04/17 22:01 Last Admin: 03/27/17 21:53 Dose: 100 mg Cefepime HCl (Maxipime 1gm) 1 gm in 100 mls @ 100 mls/hr IVPB Q12 JOSE ARMANDO PRN Reason: Protocol Stop: 04/04/17 22:01 Last Admin: 03/27/17 21:54 Dose: 100 mls/hr Sodium Chloride (Sodium Chloride 0.9%) 1,000 mls @ 50 mls/hr IV .Q20H JOSE ARMANDO Last Admin: 03/27/17 10:08 Dose: 50 mls/hr Pantoprazole Sodium (Protonix Inj) 40 mg IVP Q12 JOSE ARMANDO Last Admin: 03/27/17 21:55 Dose: 40 mg - Labs Labs: 03/28/17 07:30 03/28/17 07:30 PT 11.6 Seconds (9.9-11.8) 03/28/17 07:30 INR 1.07 (0.93-1.08) 03/28/17 07:30 APTT 34.0 Seconds (23.7-30.8) H 03/25/17 22:09 - Constitutional Appears: Non-toxic, No Acute Distress - Head Exam Head Exam: NORMAL INSPECTION - Neck Exam Neck Exam: absent: Meningismus - Respiratory Exam Respiratory Exam: Decreased Breath Sounds - Cardiovascular Exam Cardiovascular Exam: +S1, +S2 - GI/Abdominal Exam GI & Abdominal Exam: Soft. absent: Tenderness Assessment and Plan - Assessment and Plan (Free Text) Plan: Assessment Sepsis due to right lower lobe healthcare-associated pneumonia, clinically improving Enterococcus faecium in the urine in a patient with indwelling Flores catheter history of multilobar right-sided community-acquired pneumonia HTN history of CVA cataracts history of UTI with prostate problems Plan patient is on Cefepime and Doxycycline (day 3) and will add Vancomycin; once ready for discharge, he can be switched to PO Augmentin and Zyvox for another 3- 5 days with outpatient follow up with PMD
[2017-03-28] MEDS ORDERED: Vancomycin 1gm in NS 250ml 1 GM/250 ML BAG IVPB SCH (11:15)
[2017-03-28 12:10] VITALS: BP 120/76; PULSE 97; RESP 20
--- NOTE | 2017-03-28 14:29 | US ---
PROCEDURE: Ultrasound of the Kidneys HISTORY: see ct ? cyst rt uper pole COMPARISON: Abdomen pelvis CT without contrast 03/25/2017. TECHNIQUE: Sonogram of the kidneys. FINDINGS: RIGHT KIDNEY: Measures: 10.2 x 5.0 x 4.6 cm. A hypoechoic lesion seen related to upper pole right kidney measuring 3.2 x 3.3 x 1.5 cm which is avascular on color Doppler ultrasound. Some shadowing may be related to this structure but appears to slightly enhance posteriorly predominantly. This is probably complex cyst rather than a solid lesion however is difficult to characterize in this exam and follow-up MRI without contrast is advised for better characterization of this structure. Patient has a GFR greater than 35 then MRI of the kidneys without gadolinium is advised. Otherwise, tiny 1.8 cm cyst seen related to the upper pole right kidney. Limited corticomedullary differentiation is appreciated which may indicate an element of intrinsic medical renal disease. No obstructive uropathy or perinephric fluid collection is seen related. There is no urolithiasis identified either. LEFT KIDNEY: Measures: 10.6 x 5.9 x 4.7 cm. Normal in size and contour with limited corticomedullary differentiation which may indicate an element of intrinsic medical renal disease. No stone, solid mass lesion or hydronephrosis visualized. OTHER FINDINGS: None. IMPRESSION: 1. 3.2 cm hypoechoic lesion is seen upper pole right kidney corresponding to the CT finding. It may represent a complex cyst. If the patient can receive intravenous gadolinium, follow-up MRI of the kidneys is advised without contrast as a more definitive evaluation of the upper pole right kidney. If there is a contraindication to intravenous gadolinium, then follow-up MRI without contrast advised to least provide better tissue resolution than ultrasound is providing as well as CT. 2. Simple cyst upper pole right kidney. 3. No obstructive uropathy bilaterally or perinephric fluid collection. Intrinsic medical renal disease is questioned. Please see discussion above.
--- NOTE | 2017-03-29 03:33 | DS ---
SUBJECTIVE: I saw the patient resting comfortably out of bed to chair. He is doing better overall. I understand that his family wants to take him home, He refused to have an endoscopy today with Gastroenterology. He is on a regular diet. If he does well after lunch, he will be discharged. He is on less medications, I discussed with Infectious Disease doctor. He will be off the doxycycline and the cefepime. He will be going home on Augmentin, Protonix, Santyl. I have given some Thorazine p.r.n. for hiccups, also he will be on indwelling Flores catheter. only the Flomax anymore. As per , he does have lots of issues going on which is not going to be evaluated as the family wants to take him home and for renal insufficiency, low iron, I will put him on some iron also one a day because it is a low iron deficiency anemia. He will drink more water, Given Augmentin for the infection. He is eating better now, He is breathing better with the antibiotics. 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 If he has the feeling back shortly because we are not addressing a few things and we will do the best we can. The next discussion if it happens again will be hospice and right now, he is comfortable sitting out of the chair. He is having a white count 11.2, hemoglobin 13.8, hematocrit with a 308 platelets. He has a sodium 140, potassium 4.2, BUN 13, creatinine 1.2, GFR is 67. Sugar is 94, calcium is 9.2, total bilirubin is 0.6, AST is 27, ALT is 32, alkaline phosphatase 86, total protein is 7. The patient is doing pretty good, so the plan is to discharge him after lunch if he eats well. I have kept prescriptions ready for him. Peng Bowers DO MTDD
--- NOTE | 2017-03-29 15:58 | PQF SEPSIS ---
03/29/17 Lazara Yeung physician documents "sepsis due to right lower lobe healthcare-associated pneumonia" on his progress note of 03/28. This is the only mention of sepsis. Please clarify whether sepsis was ruled in, ruled out, undetermined. If sepsis was ruled in, was this present on admission? Thank you. Clarification of your documentation is requested to better reflect the severity of illness and intensity of treatment of your patient. Indicators present [] Temp < 96.8 or > 100.4 [] WBC count > 12,000/mm3 or <000/mm3 or 10% immature neutrophils [] Heart Rate > 90 [] Respiratory Rate > 20 [] Fever or hypothermia [] Chills [] Positive blood cultures [] Hypotension [] Metabolic acidosis (Elevated lactate level, anion gap or reduced blood pH) [] Acute confusion /Altered Mental Status [] Shock [] Other: [] Location in the medical record that reflects the above clinical findings: [] Treatment Provided: [] PHYSICIAN'S RESPONSE Based on your medical judgment of the clinical indicators outlined above, are you treating this patient for a known or suspected: [] Sepsis / Septicemia Please specify organism if known [] [] SIRS (Systemic Inflammatory Response Syndrome) [] Severe Sepsis (Sepsis with Associated Organ Dysfunction) [] Fever of Unknown Origin no sepsis [] Other, please indicate: [] [] If Unable to Determine, please check the box, sign and date. Present On Admission (POA) Indicator: [] Present at the time of admission [] Not present at the time of admission [] Clinically Undetermined In responding to this query, please exercise your independent professional judgment. The fact that a question is asked does not imply that any particular answer is desired or expected. Thank you for your clarification on this documentation. 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
== END 2017-03-28 14:31 | disposition home or self-care (01) | DRG 194 ==
LOC: ED 21:01 → ERH 03-26 02:28 → 2RSO 03-26 02:40
PROVIDERS: ADMIT Family Medicine; ATTEND Family Medicine
DX: J18.9 Pneumonia, unspecified organism (principal); K92.2 Gastrointestinal hemorrhage, unspecified; F03.90 Unspecified dementia, unspecified severity, without behavioral disturbance, psychotic disturbance, mood disturbance, and anxiety; N30.90 Cystitis, unspecified without hematuria; D50.9 Iron deficiency anemia, unspecified; I35.0 Nonrheumatic aortic (valve) stenosis; H26.9 Unspecified cataract; H35.30 Unspecified macular degeneration; H91.90 Unspecified hearing loss, unspecified ear; I10 Essential (primary) hypertension; I25.10 Atherosclerotic heart disease of native coronary artery without angina pectoris; Z86.73 Personal history of transient ischemic attack (TIA), and cerebral infarction without residual deficits; Z87.01 Personal history of pneumonia (recurrent); Y95 Nosocomial condition; N40.0 Benign prostatic hyperplasia without lower urinary tract symptoms; Z87.440 Personal history of urinary (tract) infections; Z87.891 Personal history of nicotine dependence; L89.90 Pressure ulcer of unspecified site, unspecified stage; Z99.3 Dependence on wheelchair; K59.09 Other constipation; K21.9 Gastro-esophageal reflux disease without esophagitis; Z91.81 History of falling

== ENCOUNTER 2017-10-06 03:16 | Emergency (ER) | payer MEDICARE ==
[2017-10-06 03:25] VITALS: BMI 21.4
--- NOTE | 2017-10-06 03:27 | ED PDOC ---
Arrival/HPI - General Time Seen by Provider: 10/06/17 03:17 Historian: Patient, Family - History of Present Illness Narrative History of Present Illness (Text): 10/06/17 03:26 Juan David Chisholm is an 87 year old male, whose past medical history includes CVA, BPH with chronic indwelling montalvo, hypertension, who presents to the emergency department brought in by EMS accompanied by relative for hematemesis. Relative states patient has been experiencing hematemesis since waking up at 01:30 today. Relative also notes patient has been hiccuping for the past 3 days. Patient denies any chest pain, abdominal pain, shortness of breath, or any other complaints. PMD: Dr. Tami Bowers Symptom Onset: Gradual Symptom Course: Unchanged Activities at Onset: Light Context: Home Past Medical History - Provider Review Nursing Documentation Reviewed: Yes - Infectious Disease Hx of Infectious Diseases: None - Cardiac Hx Cardiac Disorders: Yes (aortic stenosis, abd aortic dissection) - Pulmonary Hx Respiratory Disorders: Yes Hx Pneumonia: Yes (aspiration pneumonia) - Neurological Hx Neurological Disorder: Yes HX Cerebrovascular Accident: Yes Hx Dementia: Yes - HEENT Hx HEENT Disorder: Yes Hx Deafness: Yes Hx Macular Degeneration: Yes - Renal Hx Renal Disorder: No - Endocrine/Metabolic Hx Endocrine Disorders: No - Hematological/Oncological Hx Blood Disorders: No - Integumentary Hx Dermatological Disorder: Yes (sacral ulcer) - Musculoskeletal/Rheumatological Hx Musculoskeletal Disorders: No Hx Falls: Yes - Gastrointestinal Hx Gastrointestinal Disorders: Yes (gastritis, diverticulosis, GI bld) Hx Gastroesophageal Reflux: Yes HX Swallowing Problems: Yes - Genitourinary/Gynecological Hx Genitourinary Disorders: Yes (urinary retention w/ chronic montalvo, hiatal hernia) Hx Prostate Problems: Yes Hx Urinary Tract Infection: Yes - Psychiatric Hx Psychophysiologic Disorder: No Hx Substance Use: No - Past Surgical History Past Surgical History: No Previous - Anesthesia Hx Anesthesia: Yes Hx Anesthesia Reactions: No Hx Malignant Hyperthermia: No - Suicidal Assessment Feels Threatened In Home Enviroment: No Family/Social History - Physician Review Nursing Documentation Reviewed: Yes Family/Social History: Unknown Family HX Smoking Status: Former Smoker Hx Alcohol Use: No Hx Substance Use: No Allergies/Home Meds Allergies/Adverse Reactions: Allergies No Known Allergies Allergy (Verified 10/06/17 03:21) Home Medications: Home Meds Medication Instructions Recorded Confirmed Pantoprazole [Protonix EC Tab] 40 mg PO DAILY 03/25/17 10/06/17 Tamsulosin [Flomax] 0.4 mg PO DAILY 03/25/17 10/06/17 Review of Systems - Physician Review All systems were reviewed & negative as marked: Yes - Review of Systems Constitutional: Normal. absent: Fevers Eyes: Normal ENT: Normal Respiratory: Normal. absent: SOB, Cough Cardiovascular: Normal. absent: Chest Pain Gastrointestinal: Vomiting, Hematemesis, Other (+hiccups). absent: Abdominal Pain, Diarrhea, Nausea Genitourinary Male: Normal. absent: Dysuria, Frequency, Hematuria, Urinary Output Changes Musculoskeletal: Normal. absent: Back Pain, Neck Pain Skin: Normal. absent: Rash Neurological: Normal. absent: Headache, Dizziness Endocrine: Normal Hemo/Lymphatic: Normal Psychiatric: Normal Physical Exam Vital Signs Reviewed: Yes Vital Signs Temp Pulse Resp BP Pulse Ox 10/06/17 12:28 80 18 106/56 L 100 10/06/17 10:54 84 18 95/61 L 100 10/06/17 07:00 99 H 18 147/62 100 10/06/17 05:29 96 H 18 137/61 100 10/06/17 03:34 98.8 F 107 H 18 156/81 H 100 Temperature: Afebrile Blood Pressure: Normal Pulse: Regular Respiratory Rate: Normal Appearance: Positive for: Well-Appearing, Non-Toxic, Comfortable Pain Distress: None Mental Status: Positive for: Alert and Oriented X 3 - Systems Exam Head: Present: Atraumatic, Normocephalic Pupils: Present: PERRL Extroacular Muscles: Present: EOMI Conjunctiva: Present: Normal Mouth: Present: Moist Mucous Membranes Neck: Present: Normal Range of Motion Respiratory/Chest: Present: Clear to Auscultation, Good Air Exchange. No: Respiratory Distress, Accessory Muscle Use Cardiovascular: Present: Regular Rate and Rhythm, Normal S1, S2. No: Murmurs Abdomen: Present: Normal Bowel Sounds. No: Tenderness, Distention, Peritoneal Signs Back: Present: Normal Inspection Upper Extremity: Present: Normal Inspection. No: Cyanosis, Edema Lower Extremity: Present: Normal Inspection. No: Edema Neurological: Present: GCS=15, CN II-XII Intact, Speech Normal Skin: Present: Warm, Dry, Normal Color. No: Rashes Psychiatric: Present: Alert, Oriented x 3, Normal Insight, Normal Concentration Medical Decision Making ED Course and Treatment: 10/06/17 03:26 Impression: 87 year old male brought in for hematemesis and hiccuping. Plan: -- EKG -- CXR -- Labs, cardiac enzymes, lipase, amylase, blood type and screen -- Reglan -- Zofran -- Protonix -- Reassess and disposition Progress Notes: Reviewed EKG, sinus tachycardia at [address] bpm[address] Non-specific ST/T wave changes. 10/06/17 04:17 CXR reviewed, shows no acute processes. case d/w dr bowers will admit, family and poa wants to take him home on hospice dr bowers notified will be in to see pt 10/07/17 17:38 - Lab Interpretations Lab Results: 10/06/17 06:05 10/06/17 06:05 Lab Results 10/06/17 06:05: Blood Type B POSITIVE, Antibody Screen Negative, BBK History Checked Patient has bt 10/06/17 06:05: Sodium 142, Potassium 4.3, Chloride 106, Carbon Dioxide 28, Anion Gap 12, BUN 29 H, Creatinine 1.3, Est GFR ( Amer) > 60, Est GFR ( Non-Af Amer) 52, Random Glucose 124 H, Calcium 8.9, Total Bilirubin 0.3, AST 19 , ALT 18, Alkaline Phosphatase 59, Lactate Dehydrogenase 352, Total Creatine Kinase 20 L, Troponin I 0.01, Total Protein 6.0, Albumin 3.3, Globulin 2.7, Albumin/Globulin Ratio 1.2, Amylase 76, Lipase 149 10/06/17 06:05: PT 12.2, INR 1.06, APTT 29.4 10/06/17 06:05: WBC 13.4 H D, RBC 3.52, Hgb 10.5 L, Hct 33.6 L, MCV 95.5, MCH 29.8, MCHC 31.3, RDW 14.6 H, Plt Count 216, MPV 9.7, Gran % 83.9 H, Lymph % ( Auto) 9.3 L, Mason % (Auto) 4.9, Eos % (Auto) 1.8, Baso % (Auto) 0.1, Gran # 11.24 H, Lymph # (Auto) 1.3, Mason # (Auto) 0.7 H, Eos # (Auto) 0.2, Baso # (Auto ) 0.01 - RAD Interpretation Radiology Orders: 10/06/17 03:28 CHEST PORTABLE [RAD] Stat - EKG Interpretation Interpreted by ED Physician: Yes Type: 12 lead EKG - Medication Orders Current Medication Orders: Discontinued Medications Metoclopramide HCl (Reglan) 10 mg IVP ONCE ONE Stop: 10/06/17 03:30 Last Admin: 10/06/17 03:30 Dose: 10 mg IVP Administration Document 10/06/17 03:30 AD (Rec: 10/06/17 04:09 AD [id number]) Charges for Administration # of IVP Administrations 1 Ondansetron HCl (Zofran Inj) 4 mg IVP STAT STA Stop: 10/06/17 03:29 Last Admin: 10/06/17 03:30 Dose: 4 mg IVP Administration Document 10/06/17 03:30 AD (Rec: 10/06/17 04:09 AD [id number]) Charges for Administration # of IVP Administrations 1 Pantoprazole Sodium (Protonix Inj) 40 mg IVP ONCE STA Stop: 10/06/17 03:30 Last Admin: 10/06/17 03:30 Dose: 40 mg IVP Administration Document 10/06/17 03:30 AD (Rec: 10/06/17 04:09 AD [id number]) Charges for Administration # of IVP Administrations 1 - Scribe Statement The provider has reviewed the documentation as recorded by the Richard Rausch Provider Scribe Attestation: All medical record entries made by the Scribe were at my direction and personally dictated by me. I have reviewed the chart and agree that the record accurately reflects my personal performance of the history, physical exam, medical decision making, and the department course for this patient. I have also personally directed, reviewed, and agree with the discharge instructions and disposition. Disposition/Present on Arrival - Present on Arrival Any Indicators Present on Arrival: No History of DVT/PE: No History of Uncontrolled Diabetes: No Urinary Catheter: Yes History Surgical Site Infection Following: None - Disposition Have Diagnosis and Disposition been Completed?: Yes Diagnosis: Upper GI bleed Disposition: HOME/ ROUTINE Disposition Time: 07:00 Condition: FAIR Referrals: Peng Bowers DO [Primary Care Provider] - Forms: [employer] (Ugandan)
[2017-10-06 03:36] VITALS: RESP 18; TEMP 98.8; O2SAT 100
[2017-10-06 06:29] LABS: BASO # 0.01 K/mm3 (0.0-2.0); BASO % 0.1 % (0.0-3.0); EOS # 0.2 (0.0-0.7); EOS % 1.8 % (1.5-5.0); GRAN # 11.24 (1.4-6.5); GRAN % 83.9 % (50.0-68.0); HEMOGLOBIN 10.5 g/dL (14.0-18.0); LYMPH # 1.3 (1.2-3.4); LYMPH % 9.3 % (22.0-35.0); MEAN CELL VOLUME 95.5 fl (80.0-105.0); MEAN CORPUSCULAR HEMOGLOBIN 29.8 pg (25.0-35.0); MEAN CORPUSCULAR HGB CONC 31.3 g/dl (31.0-37.0); MEAN PLATELET VOLUME 9.7 fl (7.0-11.0); MONO # 0.7 (0.1-0.6); MONO % 4.9 % (1.0-6.0); RBC 3.52 10^6/uL (3.5-6.1); RED CELL DISTRIBUTION WIDTH 14.6 % (11.5-14.5); WHITE BLOOD COUNT 13.4 10^3/ul (4.5-11.0)
[2017-10-06 06:39] LABS: INR 1.06 (0.93-1.08); PARTIAL THROMBOPLASTIN TIME 29.4 Seconds (25.1-36.5); PROTHROMBIN TIME 12.2 SECONDS (9.4-12.5)
[2017-10-06 06:50] LABS: ALB/GLOB RATIO 1.2 (1.1-1.8); ALBUMIN 3.3 g/dL (3.0-4.8); ALT/SGPT 18 U/L (7-56); AMYLASE 76 U/L (35-125); AST/SGOT 19 U/L (17-59); BLOOD UREA NITROGEN 29 mg/dL (7-21); CALCIUM 8.9 mg/dL (8.4-10.5); GFR AFRICAN-AMERICAN > 60; GFR NON-AFRICAN AMERICAN 52; LIPASE 149 U/L (23-300)
[2017-10-06 08:02] LABS: TROPONIN I 0.01 ng/mL
--- NOTE | 2017-10-06 08:28 | RAD ---
HISTORY: gi bleed COMPARISON: 01/27/2017 FINDINGS: LUNGS: No active pulmonary disease. PLEURA: No significant pleural effusion identified, no pneumothorax apparent. CARDIOVASCULAR: Normal. OSSEOUS STRUCTURES: No significant abnormalities. VISUALIZED UPPER ABDOMEN: Normal. OTHER FINDINGS: None. IMPRESSION: No active disease.
[2017-10-06 12:40] VITALS: BP 106/56; PULSE 80
--- NOTE | 2017-10-06 16:13 | CARD ---
APPROVED REPORT EKG Measurement Heart [id number] <Conclusion> Sinus tachycardia Septal infarct, age undetermined Abnormal ECG
== END 2017-10-06 12:40 | disposition home or self-care (01) ==
LOC: ED 03:16 → ERH 07:11 → UNDOADMIN 07:11
DX: K92.2 Gastrointestinal hemorrhage, unspecified (principal); I10 Essential (primary) hypertension; N40.0 Benign prostatic hyperplasia without lower urinary tract symptoms; Z87.891 Personal history of nicotine dependence
CPT/HCPCS: 71045; 80053; 82150; 82550; 83615; 83690; 84484; 85025; 85610; 85730; 86850; 86900; 93005; 96374; 96375; 99285; C9113; J2405; J2765